=== PATIENT | female | born 1960 | race Caucasian/White ===

== ENCOUNTER 2024-10-09 00:03 | Inpatient (IN) | payer OTHER, SELFPAY ==
[2024-10-09] VITALS (11 sets, daily range): BP systolic 113–163; BP diastolic 63–82; PULSE 31–88; RESP 16–24; TEMP 36.6–39.1; O2SAT 92–99; BMI 21.6
--- NOTE | 2024-10-09 | ECG_ITS ---
Test Reason : WEAKNESS Blood Pressure : */* mmHG Vent. Rate : 84 BPM Atrial Rate : 84 BPM P-R Int : 134 ms QRS Dur : 104 ms QT Int : 366 ms P-R-T Axes : 47 -2 33 degrees QTcB Int : 432 ms Normal sinus rhythm Incomplete right bundle branch block Borderline ECG No previous ECGs available Referred By: Marianela Hand Electronically Signed By: Deion Allen
--- NOTE | ~2024-10-09 | XR_ITS ---
CLINICAL HISTORY: cough 1 view chest x-ray Comparison: None available Findings: Mild pulmonary opacities with interstitial predominance as can be seen with pulmonary edema and pneumonitis. Small left pleural effusion suggested with blunting of the costophrenic angle. No pneumothorax in this portable image. Mild cardiomegaly accentuated by AP technique. Degenerative changes include imaged shoulders and AC joints of the small chronic appearing fragment adjacent to right humerus and lucencies of the partially imaged right clavicle. Multiple additional lucencies concerning for osseous metastatic disease or myeloma type lesions. IMPRESSION: 1. Multiple osseous lesions with lytic appearance. Differential considerations include osseous metastatic disease (lytic) and findings of multiple myeloma. 2. Mild pulmonary opacities concerning for pneumonitis and/or pulmonary edema. This document has been electronically signed by: Ney Hood MD on 10/09/2024 00:59:27
--- NOTE | 2024-10-09 00:18 | ED.GENADULT ---
HPI - General Adult General Chief complaint: Nausea/Vomiting/Diarrhea Stated complaint: low HR, n/v/d High temp Time Seen by Provider: 10/09/24 00:18 Related Data Allergies Allergy/AdvReac Type Severity Reaction Status Date / Time No Known Allergies Allergy Verified 10/09/24 00:17 [facility] Social History Social History Smoked in Last 30 Days: No Use of substances other than those prescribed or required for medical reasons: No Advance Directives: No Advance Directives Information Provided: Yes Do you have a plan to hurt others: No Plan Patient : No Physical Exam ED Vital Signs: Vital Signs - 24 hr 10/09/24 00:20 Temperature 102.3 F H Pulse Rate 81 Respiratory Rate 24 H Blood Pressure 139/72 Pulse Oximetry 92 Oxygen Delivery Method Room Air BMI result Body Mass Index 21.6 Course Reevaluation(s) Reevaluation #1: At this time sepsis was recognized and this is sepsis focused exam Time: 00:20 Medications Administered Generic Name Dose Route Start Last Admin Trade Name Freq PRN Reason Stop Dose Admin Vancomycin HCl 1,500 mg/ 500 mls @ 333.333 mls/hr 10/09/24 00:29 10/09/24 01:04 Sodium Chloride IV 10/09/24 01:58 333.33 mls/hr ONCE ONE Administration Discontinued Medications Generic Name Dose Route Start Last Admin Trade Name Freq PRN Reason Stop Dose Admin Lactated Ringer's 1,929 mls @ 1,929 mls/hr 10/09/24 00:28 10/09/24 00:42 Lr 30 ml/kg infuse over 1 hr (1929 ml) 10/09/24 01:27 1,929 mls/hr IV Administration .Q1H ONE Piperacillin Sod/Tazobactam 50 mls @ 100 mls/hr 10/09/24 00:29 10/09/24 00:47 Sod 3.375 gm/ Sodium Chloride IV 10/09/24 00:58 100 mls/hr ONCE ONE Administration Medical Decision Making Medical Decision Making MDM Narrative: 64-year-old female with multiple myeloma on chemotherapy with recent pneumonia. She unfortunately is neutropenic fever mild tachypnea but she is not distressed. No obvious focal bacterial source on examination or ED testing. Bilateral infiltrates read as possible pneumonitis but resolving and/or acute on subacute bilateral pneumonia. Broad-spectrum antibiotics, sepsis activation, no hypotension or severe lactate elevation. Case discussed with hospitalist for admission. Differential Diagnosis , pneumonia, bacteremia, UTI, viral syndrome Consult Healthcare Provider Management of the patient was discussed with: Hospitalist Lab Data MDM Lab Attestation statement: I reviewed the patient's lab results. 10/09/24 00:16 10/09/24 00:16 Labs: Lab Results 10/09/24 10/09/24 Range/Units 00:16 00:33 WBC 0.8 L* (4.8-10.8) X10*3/uL RBC 2.94 L (4.20-5.50) X10*6/uL Hgb 8.8 L (12.0-16.0) g/dl Hct 25.6 L (37.0-47.0) % MCV 87.1 (80.0-98.0) fL MCH 29.9 (27.0-33.0) pg MCHC 34.4 (31.0-35.0) g/dl RDW 15.9 (11.0-16.0) % Plt Count 124 L (160-400) X10*3/uL MPV 10.7 (9.4-12.3) fL Immature Gran % (Auto) Cancelled Neut % (Auto) Cancelled Lymph % (Auto) Cancelled Frederick % (Auto) Cancelled Eos % (Auto) Cancelled Baso % (Auto) Cancelled Lymph # (Auto) Cancelled Frederick # (Auto) Cancelled Eos # (Auto) Cancelled Baso # (Auto) Cancelled Abs Immat Gran (auto) Cancelled Absolute Neuts (auto) Cancelled Absolute Nucleated RBC 0.020 H (0.0-0.012) X10*3/uL Nucleated RBC % (auto) 2.5 H (0.0-0.2) /100WBC Neutrophils % (Manual) 54 (45-73) % Band Neutrophils % 17 H (3-5) % Lymphocytes % (Manual) 27 (20-40) % Monocytes % (Manual) 1 L (2-11) % Eosinophils % (Manual) 1 (0-4) % Abs Neuts (Manual) 0.6 L (2.0-8.3) X10*3/uL Lymphocytes # (Manual) 0.2 L (1.2-4.9) X10*3/uL Toxic Granulation PRESENT Toxic Vacuolation PRESENT Dohle Bodies PRESENT Platelet Estimate SLIGHTLY DECREASED (NORMAL) Plt Morphology Comment NORMAL RBC Morphology NOTED Microcytosis 1+ (5-14) /OIF Spherocytes 1+ (0-2) /OIF Ovalocytes 1+ (5-14) /OIF Schistocytes 1+ (0-2) /OIF Hold Blue Top SEE NOTE Sodium 140 (135-145) mmol/L Potassium 3.8 (3.3-5.1) mmol/L Chloride 107 (96-108) mmol/L Carbon Dioxide 20 L (22-29) mmol/L Anion Gap 17 (12-20) BUN 16 (9-16) mg/dL Creatinine 1.06 (0.5-1.4) mg/dL Estim Creat Clear Calc 54.1 Estimated GFR 52 Random Glucose 98 (60-115) mg/dL Lactic Acid 1.8 (0.5-2.0) mmol/L Calcium 8.9 (8.4-10.2) mg/dL Magnesium 1.3 L* (1.6-2.6) mg/dL Total Bilirubin 0.3 (0.0-1.0) mg/dL AST 35 H (5-31) U/L ALT 24 (0-31) U/L Alkaline Phosphatase 95 (39-117) U/L C-Reactive Protein 1.23 H (< or = 0.50) mg/dL Total Protein 6.1 L (6.5-8.0) g/dL Albumin 3.6 (3.5-5.0) g/dL Procalcitonin 0.16 ng/mL TSH 1.81 (0.32-4.0) uIU/mL Hold Green Top See Note Chronic Conditions Patient?s care impacted by: Cancer Critical Care Time Critical Care Time Critical Care Time: Yes Total Critical Care Time: 50 Attestation: ED Critical Care: Authorized and Performed by: Rupesh Jara MD Total critical care time: Approximately 50 Due to a high probability of clinically significant, life threatening deterioration, the patient required my highest level of preparedness to intervene emergently and I personally spent this critical care time directly and personally managing the patient. This critical care time included obtaining a history; examining the patient; pulse oximetry; ordering and review of studies; arranging urgent treatment with development of a management plan; evaluation of patient's response to treatment; frequent reassessment; and, discussions with other providers. This critical care time was performed to assess and manage the high probability of imminent, life-threatening deterioration that could result in multi-organ failure. It was exclusive of separately billable procedures and treating other patients and teaching time. Discharge Plan Discharge Clinical Impression: Fever and neutropenia Patient Disposition: Admitted As Inpatient
--- NOTE | 2024-10-09 00:22 | MHC.EDTECH ---
at this time the pt was changed over into a hospital gown and placed on drapery and upholstery estimator, VS obtained and stable, blood work drawn and sent to lab
[2024-10-09 00:27] LABS: Hematocrit 25.6 % (37.0-47.0); Hemoglobin 8.8 g/dl (12.0-16.0); Mean Corpuscular HGB Conc 34.4 g/dl (31.0-35.0); Mean Corpuscular Hemoglobin 29.9 pg (27.0-33.0); Mean Corpuscular Volume 87.1 fL (80.0-98.0); Mean Platelet Volume 10.7 fL (9.4-12.3); NRBC Pct Auto 2.5 /100WBC (0.0-0.2); Platelet Count 124 X10*3/uL (160-400); Red Blood Count 2.94 X10*6/uL (4.20-5.50); Red Cell Distribution Width 15.9 % (11.0-16.0)
[2024-10-09 00:28] LABS: WBC ABN SCTR FOR CBC 1
[2024-10-09 00:30] LABS: White Blood Count 0.8 X10*3/uL (4.8-10.8)
[2024-10-09] MEDS: LACTATED RINGERS 1929 ML IV (00:42)
[2024-10-09] MEDS: Piperacillin Sodium/Tazobactam 3.375 GM in 0.9 % Sodium Chloride 50 ML IV (00:47)
[2024-10-09 00:50] LABS: Neutrophils Percent Manual 54 % (45-73)
[2024-10-09 00:52] LABS: Band Neutrophils Percent 17 % (3-5); Eosinophils Percent Manual 1 % (0-4); Lymphocytes Absolute Manual 0.2 X10*3/uL (1.2-4.9); Lymphocytes Percent Manual 27 % (20-40); Monocytes Percent Manual 1 % (2-11); Neutrophils Absolute Manual 0.6 X10*3/uL (2.0-8.3)
[2024-10-09 00:53] LABS: Microcytosis 1+ (5-14) /OIF; Ovalocytes 1+ (5-14) /OIF; Platelet Estimate SLIGHTLY DECREASED (NORMAL); Platelet Morphology Comment NORMAL; RBC Morphology NOTED; Schistocytes 1+ (0-2) /OIF
[2024-10-09 00:54] LABS: Dohle Bodies PRESENT; Spherocytes 1+ (0-2) /OIF; Toxic Granulation PRESENT; Toxic Vacuolation PRESENT
[2024-10-09 00:56] LABS: Alanine Aminotransferase 24 U/L (0-31); Albumin Level 3.6 g/dL (3.5-5.0); Alkaline Phosphatase 95 U/L (39-117); Anion Gap 17 (12-20); Aspartate Amino Transferase 35 U/L (5-31); Bilirubin Total 0.3 mg/dL (0.0-1.0); Blood Urea Nitrogen 16 mg/dL (9-16); C Reactive Protein 1.23 mg/dL (< or = 0.50); Calcium 8.9 mg/dL (8.4-10.2); Carbon Dioxide 20 mmol/L (22-29); Chloride 107 mmol/L (96-108); Creatinine Clr Calc Pharmacy 54.1; Estimated Glomerular Filt Rate 52; Glucose Random 98 mg/dL (60-115); Magnesium 1.3 mg/dL (1.6-2.6); Potassium 3.8 mmol/L (3.3-5.1); Sodium 140 mmol/L (135-145); Total Protein 6.1 g/dL (6.5-8.0)
[2024-10-09 00:59] LABS: Lactic Acid 1.8 mmol/L (0.5-2.0)
--- OUTSIDE RECORDS SUMMARY | 2024-10-09 01:01 | XMS_ITS | Encounter Summary ---
Author Organization [facility] Address [address] [place] [address] Care Team Providers Care Criminal Justice Social Worker Name Role Phone Hilda Wilkins MD Unavailable Unavailable Reyes Emanuel MD Primary Care Provider [phone] Encounter Details Date Type Department Care Team Description 12/07/2022 Orders Only Adult Medicine [address] [phone] Reyes Emanuel MD [address] [place] [address] [phone] Social History Tobacco Use Types Packs/Day Years Used Date Smoking Tobacco: Every Day Cigarettes 0.5 44 Passive Smoke Exposure: Past Smokeless Tobacco: Never Comments:started at 13 Alcohol Use Standard Drinks/Week Comments Yes 0 (1 standard drink = 0.6 oz pur e alcohol) OCCASIONALLY Sex Assigned at Date Recorded Not on file Job Start Date Occupation Industry Not on file Not on file Not on file COVID-19 Exposure Response Date Recorded In the last 10 days, have zehra u been in contact with someone who was confirmed or suspected to have Coronavirus/COVID-19? No / Unsure 11/12/2022 8:03 AM EDT documented as of this encounter Plan of Treatment Not on file documented as of this encounter Visit Diagnoses Not on filedocumented in this encounter Care Teams Criminal Justice Social Worker Relationship Specialty Start Date End Date Reyes Emanuel MD [address] [place] [address] [phone] PCP - General Internal Medicine 10/29/22 Hilda Wilkins MD Specialist Infectious Disease 02/01/22 documented as of this encounter
--- OUTSIDE RECORDS SUMMARY | 2024-10-09 01:01 | XMS_ITS | Clinical Summary ---
Author Organization 175 [facility] Address [address] [place] [address] Phone Care Team Providers Care Time Buyer Name Role Phone Reyes Emanuel MD Primary Care Provider Allergies No known active allergies Medications atorvastatin (LIPITOR) 20 mg tablet TAKE 1 TABLET BY MOUTH EVERY DAY 90 tablet 1 05/26/20 24 Active folic acid (FOLVITE) 1 mg tablet Take 1 tablet (1,000 mcg total) by mouth 1 (one) time each day. 90 tablet 2 06/09/20 24 Active albuterol HFA (PROAIR HFA ; PROVENTIL HFA ; VENTOLIN HFA) 90 mcg/actuation inhaler Inhale 2 puffs by mouth every 4 (four) hours if needed. 03/14/20 17 Active acetaminophen (TYLENOL) 325 mg tablet Take 2 tablets (650 mg total) by mouth every 8 (eight) hours if needed. 03/14/20 17 Active Combivent Respimat 20-100 mcg/actuation inhaler Inhale 1 puff by mouth 4 (four) times a day if needed for wheezing. 04/01/20 24 025 Active amLODIPine (NORVASC) 5 mg tablet TAKE 1 TABLET BY MOUTH EVERY DAY 90 tablet 2 07/13/19 25 Active LORazepam (ATIVAN) 0.5 mg tablet Take 1 tablet (0.5 mg total) by mouth 2 (two) times a day. Max Daily Amount: 1 mg 60 tablet 07/10/19 25 Active aspirin 81 mg EC tablet Take 1 tablet (81 mg total) by mouth 1 (one) time each day. Active traMADoL (ULTRAM) 50 mg tablet Take 1 tablet (50 mg total) by mouth 3 (three) times a day if needed for moderate pain. Max Daily Amount: 150 mg 90 tablet 09/15/19 25 Active cephalexin (KEFLEX) 500 mg capsule Take 1 capsule (500 mg total) by mouth 2 (two) times a day. Resume cephalexin after completing course of levofloxacin 180 capsule 1 09/20/19 25 Active multivitamin tablet Take 1 tablet by mouth 1 (one) time each day. 60 each 09/21/19 25 025 Active thiamine (VITAMIN B-1) 100 mg tablet Take 1 tablet (100 mg total) by mouth 1 (one) time each day. 60 tablet 09/21/19 25 025 Active Revlimid 25 mg capsuleIndica tions:Multipl e myeloma not having achieved remission (CMS/HCC V24, CMS/HCC V28) TAKE 1 CAPSULE BY MOUTH DAILY FOR 21 DAYS, THEN 7 DAYS OFF WITH WATER (DO NOT BREAK, CHEW, OR OPEN) 21 capsule 09/24/19 25 Active potassium chloride (KLOR-CON) 10 mEq CR tablet Take 1 tablet (10 mEq total) by mouth 1 (one) time each day. 30 each 1 09/29/19 25 025 Active citalopram (CeleXA) 10 mg tablet Take 2 tablets (20 mg total) by mouth 1 (one) time each day. 180 tablet 1 10/06/19 25 025 Active amitriptyline (ELAVIL) 10 mg tablet Take 1 tablet (10 mg total) by mouth at bedtime as needed. 07/03/19 23 025 Discontinued citalopram (CeleXA) 10 mg tablet Take 2 tablets (20 mg total) by mouth 1 (one) time each day. 08/12/19 24 025 Discontinued(R eorder) cephalexin (KEFLEX) 500 mg capsule Take 1 capsule (500 mg total) by mouth 2 (two) times a day. 180 capsule 1 06/18/19 25 025 Discontinued oxyCODONE (OXY-IR) 5 mg immediate release capsule Take 1 capsule (5 mg total) by mouth every 6 (six) hours if needed for severe pain. Max Daily Amount: 20 mg 20 capsule 07/27/19 25 025 Discontinued traMADoL (ULTRAM) 50 mg tablet Take 1 tablet (50 mg total) by mouth 3 (three) times a day if needed for moderate pain. Max Daily Amount: 150 mg 90 tablet 08/18/19 25 025 Discontinued(R eorder) dexAMETHasone (DECADRON) 4 mg tablet Take 10 tablets (40 mg total) by mouth every 7 (seven) days for 7 days. 40 each 08/22/19 25 025 Discontinued(S top Taking at Discharge) lenalidomide (REVLIMID) 25 mg capsuleIndica tions:Multipl e myeloma not having achieved remission (CMS/HCC V24, CMS/HCC V28) Take 1 capsule (25 mg total) by mouth 1 (one) time each day for 21 days Followed by 7 days off. Take whole with water. Do not break, chew, or open. 21 capsule 08/25/19 25 025 Discontinued hydrOXYzine pamoate (VISTARIL) 100 mg capsule Take 1 capsule (100 mg total) by mouth 3 (three) times a day if needed for itching for up to 10 days. 30 capsule 09/09/19 25 025 Discontinued dexAMETHasone (DECADRON) 4 mg tablet Take 40 mg (10 tabs) Weekly. 30 each 09/12/19 25 025 Discontinued(S top Taking at Discharge) lenalidomide (REVLIMID) 25 mg capsuleIndica tions:Multipl e myeloma not having achieved remission (CMS/HCC V24, CMS/HCC V28) Take 1 capsule (25 mg total) by mouth 1 (one) time each day for 21 days Followed by 7 days off. Take whole with water. Do not break, chew, or open. 21 capsule 09/20/19 25 025 Discontinued potassium chloride (KLOR-CON M10) 10 mEq CR tablet Take 1 tablet (10 mEq total) by mouth 2 (two) times a day for 5 days. Tablet may be swallowed whole (do not crush/chew/suck on) OR broken in half and each half swallowed separately OR dissolved (whole tablet) in ~4 ounces of water (allow ~2 minutes to dissolve, stir well and administer immediately). 10 each 09/20/19 25 025 levoFLOXacin (LEVAQUIN) 500 mg tablet Take 1 tablet (500 mg total) by mouth 1 (one) time each day for 5 days. 5 each 09/21/19 25 025 Active Problems Problem Noted Date Diagnosed Date Multiple myeloma not having achieved remission ([facility] V24, [facility] V28) 08/21/2024 Compression fracture of thor acic vertebra ([facility] V24, [facility] V28) 08/05/2024 Assessment & Plan (08/05/2024 11:58 AM EST): Ms. Montez is about days status post T10, L2, and L3 kyphoplasties. Since the surgery, she has noted significant improvement in her back pain. She still has some discomfort in the low back but says that overall things are much better than before the surgery. As part of the surgery, we obtained a bone biopsy at each level. This did reveal evidence of plasma cell neoplasm at both T10 and L3 revealing a diagnosis of plasma cell myeloma multiple myeloma. Ms. Montez has seen Dr. Wall, has had blood work and has plans for follow-up in August. She is seeing the student life coordinator tomorrow. We talked about the possibility of treatment of her lower lumbar compression fractures if the pain is intolerable which does not seem to be at this time. She will follow-up as needed. Other osteoporosis with curr ent pathological fracture, vertebra(e), sequela 07/21/2024 Compression fracture of L2 l umbar vertebra ([facility] V24, [facility] V28) 07/02/2024 Assessment & Plan (07/02/2024 3:57 PM EST): Ms. Montez describes mid to low back pain Since late January of 2024. She has known osteopenia. She is tender to palpation and percussion in the upper lumbar spine but is otherwise neurologically intact. Xrays and CT of the chest and abdomen have revealed what appear to be new compression fractures of T11, T12, L2 and L3 and a more chronic appearing compression frature of L1. A bone density study did reveal osteopenia. Ms. Montez would like to know if she is a candidate for a kyphoplasty in hopes that it would help her pain control. We will need to get an MRI to confirm the acuity of the fractures. She is scheduled to see an student life coordinator because of her osteopenia and fractures. I told her I would review her films with Dr. Cameron when they were available. Carpal tunnel syndrome of left wrist 06/05/2023 Carpal tunnel syndrome of right wrist 04/25/2023 B12 deficiency 06/01/2019 Fibromyalgia 08/16/2018 Neck pain 04/23/2018 Enlarged lymph node 08/09/2017 HTN (hypertension), benign 02/25/2017 External hemorrhoid 08/27/2016 Vitamin D deficiency 11/30/2015 Shoulder pain 12/14/2013 Cellulitis 11/25/2010 Overview (05/13/2024): Recurrent cellulitis of the left arm. Follows with Krystal Livingston, ID COPD (chronic obstructive pu lmonary disease) ([facility] V24, [facility] V28) 12/23/2009 Overview (05/13/2024): 12/05/09 PFTs - Mild obstructive ventilatory defect without reversibility to inhaled bronchodilator. 02 saturation, resting on room air, was normal at 98%. Diffuse cystic mastopathy 03/29/2007 Overview (05/13/2024): neg steriotactic bx 08/14, repeat mammogram 07/18 Lymphedema 12/21/2006 Overview (05/13/2024): post surgery for melanoma Malignant melanoma of skin o f upper limb, including shoulder ([facility] V24, [facility] V28) 12/21/2006 Overview (05/13/2024): left forearm 1988, 0/17 lymph nodes, lymphedema Depressive disorder 05/31/2006 Resolved Problems Problem Noted Date Diagnosed Date Resolved Date Fever and neutropenia ([facility] V24) 09/19/2024 09/19/2024 Severe sepsis with acute org an dysfunction (CMS/HCC V24, CMS/HCC V28) 09/15/2024 09/19/2024 Encounters Date Type Department Care Team Description 10/08/2024 11:30 AM EDT Hospital Encounter [address] [phone] Ilan Townsend MD Multiple myeloma not having achieved remission ([facility] V24, [facility] V28) (Primary Dx) 10/06/2024 11:30 AM EDT Hospital Encounter [address] [phone] Ilan Townsend MD Malignant melanoma of skin of upper extremity, including shoulder, unspecified laterality (CMS/HCC V24, [facility] V28) (Primary Dx); Multiple myeloma not having achieved remission ([facility]/HCC V24, [facility] V28) 10/05/2024 11:30 AM EDT Hospital Encounter [facility] [address] [place] [phone] Ilan Townsend MD Multiple myeloma not having achieved remission ([facility]/HCC V24, [facility] V28) (Primary Dx) 09/28/2024 11:19 AM EDT - 09/28/2024 11:59 PM EDT Hospital Encounter [address] [phone] Ilan Townsend MD Multiple myeloma not having achieved remission ([facility] V24, [facility] V28) (Primary Dx) Discharge Disposition: Home or Self Care 09/24/2024 11:29 AM EDT - 09/24/2024 11:59 PM EDT Hospital Encounter [address] [phone] Ilan Townsend MD Multiple myeloma not having achieved remission ([facility] V24, [facility] V28) (Primary Dx) Discharge Disposition: Home or Self Care 09/21/2024 12:30 PM EDT - 09/21/2024 11:59 PM EDT Hospital Encounter [facility] [address] [place] [phone] Ilan Townsend MD Multiple myeloma not having achieved remission ([facility] V24, [facility] V28) (Primary Dx) Discharge Disposition: Home or Self Care 09/21/2024 11:45 AM EDT Office Visit [facility] H[facility] Oncology [address] [place] [phone] Ilan Townsend MD Multiple myeloma not having achieved remission ([facility]/HCC V24, [facility] V28) (Primary Dx) 09/15/2024 3:32 PM EDT - 09/19/2024 12:47 PM EDT Hospital Encounter [facility] [address] [place] [phone] Nina Randall MD Zipagan, James T, MD Multiple myeloma not having achieved remission ([facility] V24, [facility] V28) Discharge Disposition: Home or Self Care 09/15/2024 10:39 AM EDT - 09/15/2024 11:59 PM EDT Hospital Encounter [facility] Xray [address] [place] [phone] Discharge Disposition: Home or Self Care 09/15/2024 9:30 AM EDT Office Visit [facility] [address] [place] [phone] Ani Henderson PA Multiple myeloma not having achieved remission ([facility] V24, [facility] V28) (Primary Dx); Anemia, unspecified type; Success light chain myeloma ([facility] V24, [facility] V28); Pathological fracture of vertebra with delayed healing, unspecified pathological cause, subsequent encounter; Fever, unspecified fever cause; Pneumonia due to infectious organism, unspecified laterality, unspecified part of lung; Hypokalemia 09/15/2024 8:30 AM EDT - 09/15/2024 11:59 PM EDT Hospital Encounter [facility] [address] [place] [phone] Ilan Townsend MD Multiple myeloma not having achieved remission ([facility] V24, [facility] V28) (Primary Dx); Malignant melanoma of skin of upper extremity, including shoulder, unspecified laterality ([facility]/HCC V24, CMS/HCC V28) Discharge Disposition: Home or Self Care 09/14/2024 11:21 AM EDT - 09/14/2024 11:59 PM EDT Hospital Encounter [facility] [address] [place] [phone] Ilan Townsend MD Multiple myeloma not having achieved remission ([facility] V24, [facility] V28) (Primary Dx) Discharge Disposition: Home or Self Care 09/11/2024 11:15 AM EDT Office Visit [facility] [address] [place] [phone] Ilan Townsend MD Multiple myeloma not having achieved remission ([facility] V24, [facility] V28) (Primary Dx); Anemia, unspecified type 09/11/2024 8:55 AM EDT - 09/11/2024 11:59 PM EDT Hospital Encounter [facility] [address] [place] [phone] Ilan Townsend MD Multiple myeloma not having achieved remission ([facility] V24, [facility] V28) (Primary Dx) Discharge Disposition: Home or Self Care 09/11/[address] [facility] [address] [place] [phone] Hever Aranda LMSW 08/26/2024 1:20 PM EDT - 08/26/2024 11:59 PM EDT Hospital Encounter [facility] [address] [place] [phone] Ilan Townsend MD Multiple myeloma not having achieved remission ([facility] V24, [facility] V28) (Primary Dx) Discharge Disposition: Home or Self Care 08/25/[address] [facility] [address] [place] [address], [place] [phone] Stephanie Rowland RN 08/21/2024 11:45 AM EDT Office Visit [facility] [address] [place] [phone] Ilan Townsend MD Multiple myeloma, remission status unspecified ([facility] V24, [facility] V28) (Primary Dx); Success light chain myeloma ([facility] V24, [facility] V28) 08/21/[address] [facility] [address] [place] [phone] Ariadna German, BERNA Revlimid [employer] 08/17/2024 6:56 AM EDT - 08/17/2024 11:59 PM EDT Hospital Encounter [facility] Interventional Radiology [address] [place] [phone] Other osteoporosis with current pathological fracture, vertebra(e), sequela; Lytic bone lesions on xray Discharge Disposition: Home or Self Care 08/07/2024 12:00 PM EST Office Visit Adult Medicine [address] [phone] Reyes Emanuel MD Pathological fracture of vertebra with delayed healing, unspecified pathological cause, subsequent encounter (Primary Dx); Anemia, unspecified type; Blocked ear, right; Hypercalcemia; Multiple fracture; Lytic lesion of bone on x-ray 08/07/[address] [phone] Luli Batista MA 08/06/2024 8:30 AM EST Telemedicine [address] [phone] Teagan Garza PA Other osteoporosis with current pathological fracture, vertebra(e), sequela (Primary Dx); Lytic bone lesions on xray; Light chain disease ([facility] V24) 08/05/2024 11:00 AM EST Office Visit Neurosurgery [facility] [address] [phone] Minesh Espinal PA Compression fracture of thoracic vertebra, unspecified thoracic vertebral level, initial encounter ([facility] V24, [facility] V28) (Primary Dx) 08/05/[address] [facility] [address] [place] [phone] Ilan Townsend MD 08/04/[address] [phone] Luli Batista MA Results 07/31/2024 11:30 AM EST Office Visit [facility] [address] [place] [phone] Ilan Townsend MD Multiple fracture; Pathological fracture of vertebra with delayed healing, unspecified pathological cause, subsequent encounter; Hypercalcemia; Lytic lesion of bone on x-ray 07/30/2024 3:08 PM EST - 07/30/2024 11:59 PM EST Hospital Encounter XRAY - [address] [phone] Dyspnea, unspecified type; Multiple fracture Discharge Disposition: Home or Self Care 07/30/2024 2:00 PM EST Office Visit Adult Medicine [address] [phone] Reyes Emanuel MD Lytic lesion of bone on x-ray (Primary Dx); Dyspnea, unspecified type; Multiple fracture; Pathological fracture of vertebra with delayed healing, unspecified pathological cause, subsequent encounter; Hypercalcemia 07/29/2024 1:45 PM EST - 07/29/2024 11:59 PM EST Hospital Encounter XRAY [address] [phone] Shoulder blade pain Discharge Disposition: Home or Self Care 07/27/2024 11:52 AM EST Anesthesia Event [facility] [address] [place] [phone] Piotr Shahid DO 07/27/2024 11:30 AM EST - 07/27/2024 1:[address] [facility] OR [address] [place] [phone] Teagan Cameron MD T10, L2 & L3 kyphoplasties [45573 (CPT??) +1 more] 07/27/2024 9:43 AM EST - 07/27/2024 3:42 PM EST Hospital Encounter [facility] OR [address] [place] [phone] Teagan Cameron MD Other osteoporosis with current pathological fracture, vertebra(e), sequela Discharge Disposition: Home or Self Care 07/27/2024 7:20 AM EST - 07/27/2024 11:59 PM EST Hospital Encounter [facility] [address] [place] [phone] Pain Discharge Disposition: Home or Self Care 07/16/2024 Telephone [facility] [phone] [place] [phone] Luli Batista MA from Last 3 Months Immunizations Name Administration Dates Next Due Influenza Quadravalent, 0.5m l (Fluzone High-dose) 65yo and older 04/19/2016 Influenza Quadravalent, MDCK , 0.5ml, preservative free (Flucelvax) 6mo and older 03/17/2018 Influenza trivalent, with pr eservative (Fluzone; Afluria) 6mo and older 03/26/2023,04/26/2020,02/08/2018,04/24 Pneumococcal polysaccharide 23 valent (Pneumovax 23) 2yo and older 05/16/2021 Tdap Tetanus diptheria acell ular pertussis (Boostrix; Adacel) 7yo and older 01/09/2010 Surgical History Surgery Date Site/Laterality Comments OTHER SURGICAL HISTORY PROCEDURE: HISTORICAL MELANOMA; COMMENT: left arm with lymphnode dissection neg for mets 1987, lymphedema for 11 years after trauma TONSILLECTOMY PROCEDURE: HISTORICAL TONSILLECTOMY COLONOSCOPY 08/22/1998 PROCEDURE: HISTORICAL COLONOSCOPY; COMMENT: in patient's 30s for rectal bleeding - no abnormal findings COLONOSCOPY 06/06/2010 PROCEDURE: HISTORICAL COLONOSCOPY; COMMENT: No polyps COLONOSCOPY 06/14/2015 PROCEDURE: HISTORICAL COLONOSCOPY; COMMENT: Negative examination OTHER SURGICAL HISTORY 11/2016 PROCEDURE: SD HEMORRHOID NTRNL & XTRNL 1 COLUMN W/FISSURECTO; COMMENT: fistulectomy, debridement of anal fissure with anoplasty and hemorrhoidectomy TOTAL KNEE ARTHROPLASTY 03/12/2017 Left PROCEDURE: SD ARTHRP KNE CONDYLE&PLATU MEDIAL&LAT COMPARTMENTS OTHER SURGICAL HISTORY 2019 Left PROCEDURE: SD ARTHRP ACETBLR/PROX FEM PROSTC AGRFT/ALGRFT BREAST BIOPSY Right PROCEDURE: BX BREAST; PERC NEEDLE CORE W/IMAG GUID; COMMENT: rt neg BREAST BIOPSY 03/01/2022 Left PROCEDURE: BX BREAST; PERC NEEDLE CORE W/IMAG GUID CARPAL TUNNEL RELEASE 04/2023 PROCEDURE: HISTORICAL CARPAL TUNNEL REL KNEE ARTHROPLASTY HIP ARTHROPLASTY Medical History Medical History Date Comments Cellulitis and abscess of ot her specified site DX:Cellulitis and abscess of other specified site; COMMENT: L arm Other lymphedema 12/21/2006 DX:Other lymphe pricila; COMMENT: post surgery for melanoma Malignant melanoma of skin o f upper limb, including shoulder ([facility] V24, [facility] V28) 12/21/2006 DX:Malignant melanoma of ski n of upper limb, including shoulder ([facility]); COMMENT: left forearm 1988, 017 lymph nodes, lymphedema Chronic airway obstruction, not elsewhere classified 12/21/2006 DX:Chronic airway obstructio n, not elsewhere classified Depressive disorder, not els ewhere classified 02/05/2006 DX:Depressive disorder, not elsewhere classified Thoracic or lumbosacral neur itis or radiculitis, unspecified 03/11/2008 DX:Thoracic or lumbosacral n euritis or radiculitis, unspecified Displacement of lumbar inter vertebral disc without myelopathy 03/11/2008 DX:Displacement of lumbar intervertebral disc without myelopathy Family history of colonic polyps 06/06/2010 DX:Family history of colonic polyps COPD (chronic obstructive pu lmonary disease) ([facility] V24, [facility] V28) 12/23/2009 DX:COPD (chronic o bstructive pulmonary disease) ([facility]) History of other specified c onditions presenting hazards to health DX:History of other speci fied conditions presenting hazards to health; COMMENT: melanoma lt forearm 1988 Diffuse cystic mastopathy 03/29/2007 DX:Dif fuse cystic mastopathy; COMMENT: neg steriotactic bx 2006 Neck pain 04/23/2018 DX:Neck pain Anemia DX:Anemia Fibromyalgia DX:Fibromyalgia Arthritis DX:Arthritis Nontoxic single thyroid nodule D X:Nontoxic single thyroid nodule; COMMENT: Biopsy 2022 Hemorrhoids DX:Hemorrhoids HTN (hypertension), benign 02/25/2017 Family History Medical History Relation Name Comments Ankylosing spondylitis Mother Arthritis Mother Colon cancer Mother Hypertension Mother Kidney cancer Mother Breast cancer Other mat aunt Other: ckd Sister 1 Colon polyps Sister 2 dx age 54 with 3 polyps Colon cancer Uncle maternal; age 5 2 Ovarian cancer Neg Hx Uterine cancer Neg Hx Relation Name Status Comments Brother Alive 3 brothers,, 1 with colon polyps, cerebral palsy Daughter Alive 1 daughter age 15, healthy Father (Age 63) emphysema, alcoholic Maternal Grandfather Maternal Grandmother Mother pernicious anem ia, RA, HTN, DM, Other mat aunt Paternal Grandfather Paternal Grandmother Sister 1 Alive Sister 2 Son Alive 1 son, age 27, healthy Uncle Social History Tobacco Use Types Packs/Day Years Used Date Smoking Tobacco: Every Day Cigarettes Smokeless Tobacco: Never Tobacco Cessation:Ready to Q uit: Not Asked; Counseling Given: Not Answered Comments:2 cigs a day Alcohol Use Standard Drinks/Week Comments Not Currently 0 (1 standard drink = 0.6 oz pur e alcohol) Housing Instability Answer Date Recorde d Are you worried that in the next 2 months you may not have stable housing? No 09/15/2024 Food Access & Nutrition Answer Date Rec orded Do you have access to a vari ety of food including fruits and vegetables? Yes 09/15/2024 Access to Healthcare Answer Date Record ed Within the last 3 months, ez mahan many times did you visit the emergency department for your medical care? 0 09/15/2024 Health Literacy Answer Date Recorded How often do you need to hav e someone help you when you read instructions, pamphlets, or other written material from your doctor or pharmacy? Never 09/15/2024 Caregiver: How often do you need to have someone help you when you read instructions, pamphlets, or other written material from your doctor or pharmacy? Not on file 09/15/2024 Financial Risk Answer Date Recorded How hard is it for you to pa y for the very basics like food, housing, medical care, and air conditioning / heating? Not very hard 09/15/2024 Transportation Answer Date Recorded Has the lack of transportati on kept you from meetings, work, or from getting things needed for daily living? No Has the lack of transportati on kept you from medical appointments or from getting medications? No 09/15/2024 Social Isolation Answer Date Recorded How often do you feel lonely or isolated from th ose around you? Never 09/15/2024 Food Risk Answer Date Recorded Within the past 12 months we worried whether our food would run out before we got money to buy more. Never true 09/15/2024 Within the past 12 months th e food we bought just didn't last and we didn't have money to get more. Never true 09/15/2024 Dependent Care Answer Date Recorded Do you need help finding or paying for care for your loved ones. For example, child and family counselor or elderly care for an older adult? No 09/15/2024 Education Answer Date Recorded Do you think completing more education or training, like finishing a GED, going to college, or learning a trade, would be helpful for you? No 09/15/2024 Employment and Income Answer Date Recor ded During the last four weeks, have you been actively looking for work? No 09/15/2024 Living Situation Answer Date Recorded What is your living situation? 0 09/15/2024 Interpersonal Safety Answer Date Record ed Physical Abuse 09/15/2024 Verbal Abuse 09/15/2024 Comments No Sex and Gender Information Value Date Recorded Sex Assigned at Female 07/27/2024 9:41 AM EST Legal Sex Female 11:28 AM EST Gender Identity Female 07/27/2024 9:41 AM EST Sexual Orientation Straight 07/27/2024 9: 41 AM EST Obstetrics History Last Filed Vital Signs Vital Sign Reading Time Taken Comments Blood Pressure 137/85 10/08/2024 11:51 AM EDT Pulse 59 10/08/2024 11:51 AM EDT Temperature 36.6 ??C (97.8 ??F) 10/08/2024 11:51 AM E DT Respiratory Rate 18 10/06/2024 2:30 PM EDT Oxygen Saturation 100% 10/08/2024 11:51 AM EDT Inhaled Oxygen Concentration - - Weight 67.3 kg (148 lb 6.4 oz) 10/08/2024 11:51 AM EDT Height 175.3 cm (5' 9 ) 09/18/2024 2:12 PM EDT Body Mass Index 21.91 09/18/2024 2:12 PM EDT Plan of Treatment Upcoming Encounters Date Type Department Care Team (Late st Contact Info) Description 10/12/2024 11:[address] [facility] [address] [phone] 10/15/2024 11:[address] [facility] [address] [place] [phone] 10/19/2024 11:30 AM EDT Appointment [address] [phone] 10/28/2024 11:30 AM EDT Office Visit [facility] Hematology Oncology [address] [place] [phone] Ilan Townsend MD [address] [place] [phone] 03/13/2025 11:00 AM EDT Appointment Radiology Department [address] [phone] Health Maintenance Due Date Last Done Comments Zoster Vaccines (1 of 2) 1979 Cholesterol Screening (Lipid Panel) 07/16/2019 Depression Screening 07/16/2019 HIV Screening 07/16/2019 Lung Cancer Screening (Low Dose CT) 07/16/2019 DTaP,Tdap,and Td Vaccines (2 - Td or Tdap) 01/10/2020 01/09/2010 RSV Immunization Adult Patients (1 - Risk 60-74 years 1-dose series) 2020 COVID-19 Vaccine (3 - Moderna risk series) 08/18/2020 07/21/2020, 06/23/2020 Pneumococcal Vaccine: 50+ Years (2 of 2 - PCV) 05/16/2022 05/16/2021 Pneumococcal Vaccine: Pediatrics (0 to 5 Years) and At-Risk Patients (6 to 64 Years) (2 of 2 - PCV) 05/16/2022 05/16/2021 Influenza Vaccine (Season Ended) 2025 03/26/2023, 04/26/2020, 03/17/2018, Additional history exists Social Influencers of Health Screening 09/15/2025 09/15/2024 Hypertension/CHF/CAD Annual BMP Blood Test 10/05/2025 10/05/2024, 09/25/2024, 09/24/2024, Additional history exists Breast Cancer Screening 03/07/2026 03/07/20 24, 03/07/2024, 02/26/2023, Additional history exists Cervical Cancer Screening: HPV 05/16/2026 05/16/2021 Colorectal Cancer Screening: Colonoscopy 12/17/2028 12/18/2023 Osteoporosis Screening (Bone Density Screening) 04/03/2034 04/03/2024, 04/03/2024 Hepatitis C Screening Completed 07/22/2007 HIB Vaccines Aged Out No longer eligi ble based on patient's age to complete this topic HPV Vaccines Aged Out No longer eligi ble based on patient's age to complete this topic Hepatitis A Vaccines Aged Out No long er eligible based on patient's age to complete this topic Hepatitis B Vaccines Aged Out No long er eligible based on patient's age to complete this topic IPV Vaccines Aged Out No longer eligi ble based on patient's age to complete this topic MMR Vaccines Aged Out No longer eligi ble based on patient's age to complete this topic Meningococcal ACWY Vaccine Aged Out N o longer eligible based on patient's age to complete this topic Meningococcal B Vaccine Aged Out No l onger eligible based on patient's age to complete this topic RSV Immunization Patients Under 20 months Aged Out No longer eligible based on patient's age to complete this topic Varicella Vaccines Aged Out No longer eligible based on patient's age to complete this topic Medical Devices Implanted Type Area Conveyor Maintenance Mechanic Device Identifier Shelf Expiration Date Model / Serial / Lot Kyphx Hv-R Bone Cement - Sna - [id number] Implanted:Qty: 2 on 07/27/2024 by Teagan Cameron MD at [facility] Bone Cement N/A: Back [employer] KYPHON 11/07/2026 C01A / NA / [id number] Kyph[employer] Hv-R Bone Cement Kyphon Mixer Pack - Sna - [id number] Implanted:Qty: 2 on 07/27/2024 by Teagan Cameron MD at [facility] Bone Cement N/A: Back [employer] KYPHON 11/07/2026 C01B / NA / [id number] Kyphx Hv-R Bone Cement - Sna - [id number] Implanted:Qty: 1 on 07/27/2024 by Teagan Cameron MD at [facility] Bone Cement N/A: Back [employer] KYPHON 08/07/2026 C01A / NA / [id number] Kyphx Hv-R Bone Cement Kyphon Mixer Pack - Sna - [id number] Implanted:Qty: 1 on 07/27/2024 by Teagan Cameron MD at [facility] Bone Cement N/A: Back [employer] KYPHON 08/07/2026 C01B / NA / [id number] Joints Hip Joints Hip Bilatera l: Hip Joints Knee Joints Knee Left: Knee Procedures Procedure Name Priority Date/Time Associated Diagnosis Comments TRANSFUSE RED BLOOD CELLS Routine 10/06/2024 12:14 PM EDT Malignant melanoma of skin of upper extremity, including shoulder, unspecified laterality (CMS/HCC V24, CMS/HCC V28) Multiple myeloma not having achieved remission (CMS/HCC V24, CMS/HCC V28) PREPARE RBC STAT 10/06/2024 11:43 AM EDT Malignant melanoma of skin of upper extremity, including shoulder, unspecified laterality (CMS/HCC V24, CMS/HCC V28) Multiple myeloma not having achieved remission (CMS/HCC V24, CMS/HCC V28) ANTIBODY IDENTIFICATION Routine 10/05/2024 1:15 PM EDT Multiple myeloma not having achieved remission (CMS/HCC V24, CMS/HCC V28) TYPE AND SCREEN Routine 10/05/2024 1:15 PM EDT Multiple myeloma not having achieved remission (CMS/HCC V24, CMS/HCC V28) CBC WITH AUTO DIFFERENTIAL Routine 10/05/2024 11:55 AM EDT Multiple myeloma not having achieved remission (CMS/HCC V24, CMS/HCC V28) COMPREHENSIVE METABOLIC PANEL Routine 10/05/2024 11:55 AM EDT Multiple myeloma not having achieved remission (CMS/HCC V24, CMS/HCC V28) CBC AND DIFFERENTIAL Routine 10/05/2024 11:55 AM EDT Multiple myeloma not having achieved remission (CMS/HCC V24, CMS/HCC V28) COMPLETE BLOOD COUNT Routine 10/02/2024 3:57 PM EDT Malignant melanoma of skin of upper extremity, including shoulder, unspecified laterality (CMS/HCC V24, CMS/HCC V28) Multiple myeloma not having achieved remission (CMS/HCC V24, CMS/HCC V28) MANUAL DIFFERENTIAL - SYSMEX WAM Routine 09/25/2024 3:51 PM EDT Multiple myeloma not having achieved remission (CMS/HCC V24, CMS/HCC V28) CBC WITH AUTO DIFFERENTIAL Routine 09/25/2024 3:51 PM EDT Multiple myeloma not having achieved remission (CMS/HCC V24, CMS/HCC V28) CBC AND DIFFERENTIAL Routine 09/25/2024 3:51 PM EDT Multiple myeloma not having achieved remission (CMS/HCC V24, CMS/HCC V28) COMPREHENSIVE METABOLIC PANEL Routine 09/25/2024 3:51 PM EDT Multiple myeloma not having achieved remission (CMS/HCC V24, CMS/HCC V28) COMPREHENSIVE METABOLIC PANEL STAT 09/24/2024 12:19 PM EDT Multiple myeloma not having achieved remission (CMS/HCC V24, CMS/HCC V28) MAGNESIUM Add-On 09/19/2024 8:59 AM EDT VANCOMYCIN, TROUGH Timed 09/19/2024 8:59 AM EDT MANUAL DIFFERENTIAL - SYSMEX WAM Routine 09/19/2024 6:01 AM EDT CBC WITH AUTO DIFFERENTIAL Routine 09/19/2024 6:01 AM EDT BASIC METABOLIC PANEL Routine 09/19/2024 6:01 AM EDT CBC AND DIFFERENTIAL Routine 09/19/2024 6:01 AM EDT COMPLETE BLOOD COUNT Timed 09/19/2024 6:01 AM EDT BASIC METABOLIC PANEL Routine 09/18/2024 7:12 PM EDT CBC WITH AUTO DIFFERENTIAL Routine 09/18/2024 9:33 AM EDT MAGNESIUM Routine 09/18/2024 9:33 AM EDT BASIC METABOLIC PANEL Routine 09/18/2024 9:33 AM EDT CBC AND DIFFERENTIAL Routine 09/18/2024 9:33 AM EDT BASIC METABOLIC PANEL Routine 09/17/2024 2:41 PM EDT VANCOMYCIN, TROUGH Timed 09/17/2024 9:20 AM EDT MANUAL DIFFERENTIAL - SYSMEX WAM Routine 09/17/2024 6:17 AM EDT MAGNESIUM Add-On 09/17/2024 6:17 AM EDT PHOSPHORUS Add-On 09/17/2024 6:17 AM EDT CBC WITH AUTO DIFFERENTIAL Routine 09/17/2024 6:17 AM EDT BASIC METABOLIC PANEL Routine 09/17/2024 6:17 AM EDT CBC AND DIFFERENTIAL Routine 09/17/2024 6:[address] HEAD WO CONTRAST STAT 09/16/2024 4:15 PM EDT COMPLETE BLOOD COUNT Timed 09/16/2024 6:29 AM EDT BASIC METABOLIC PANEL Routine 09/16/2024 6:29 AM EDT TRANSFUSE RED BLOOD CELLS Routine 09/15/2024 9:24 PM EDT BASIC METABOLIC PANEL STAT 09/15/2024 4:23 PM EDT CBC WITH AUTO DIFFERENTIAL STAT 09/15/2024 4:23 PM EDT CBC AND DIFFERENTIAL STAT 09/15/2024 4:23 PM EDT VELAZQUEZ URINE CULTURE TUBE Routine 09/15/2024 1:02 PM EDT Malignant melanoma of skin of upper extremity, including shoulder, unspecified laterality (CMS/HCC V24, CMS/HCC V28) URINALYSIS WITH REFLEX MICROSCOPIC AND CULTURE Routine 09/15/2024 1:02 PM EDT Malignant melanoma of skin of upper extremity, including shoulder, unspecified laterality (CMS/HCC V24, CMS/HCC V28) URINALYSIS WITH REFLEX MICROSCOPIC AND CULTURE Routine 09/15/2024 1:02 PM EDT Malignant melanoma of skin of upper extremity, including shoulder, unspecified laterality (CMS/HCC V24, CMS/HCC V28) LACTATE STAT 09/15/2024 11:08 AM EDT Multiple myeloma not having achieved remission (CMS/HCC V24, CMS/HCC V28) CULTURE BLOOD STAT 09/15/2024 11:08 AM EDT Multiple myeloma not having achieved remission (CMS/HCC V24, CMS/HCC V28) CULTURE BLOOD STAT 09/15/2024 11:08 AM EDT Multiple myeloma not having achieved remission (CMS/HCC V24, CMS/HCC V28) PREPARE RBC STAT 09/15/2024 11:07 AM EDT Multiple myeloma not having achieved remission (CMS/HCC V24, CMS/HCC V28) Malignant melanoma of skin of upper extremity, including shoulder, unspecified laterality (CMS/HCC V24, CMS/HCC V28) XR CHEST 1 VIEW STAT 09/15/2024 10:55 AM EDT Multiple myeloma not having achieved remission (CMS/HCC V24, CMS/HCC V28) ECG 12-LEAD STAT 09/15/2024 10:44 AM EDT RESPIRATORY VIRUS PANEL MOLECULAR STUDY STAT 09/15/2024 10:35 AM EDT HAPTOGLOBIN Add-On 09/15/2024 9:03 AM EDT LACTATE DEHYDROGENASE Add-On 09/15/2024 9:03 AM EDT PROCALCITONIN Add-On 09/15/2024 9:03 AM EDT PATHOLOGIST REVIEW BLOOD SMEAR Routine 09/15/2024 9:03 AM EDT Multiple myeloma not having achieved remission (CMS/HCC V24, CMS/HCC V28) CBC WITH AUTO DIFFERENTIAL STAT 09/15/2024 9:03 AM EDT Multiple myeloma not having achieved remission (CMS/HCC V24, CMS/HCC V28) COMPREHENSIVE METABOLIC PANEL STAT 09/15/2024 9:03 AM EDT Multiple myeloma not having achieved remission (CMS/HCC V24, CMS/HCC V28) CBC AND DIFFERENTIAL STAT 09/15/2024 9:03 AM EDT Multiple myeloma not having achieved remission (CMS/HCC V24, CMS/HCC V28) TYPE AND SCREEN Routine 09/14/2024 11:46 AM EDT Multiple myeloma not having achieved remission (CMS/HCC V24, CMS/HCC V28) CBC WITH AUTO DIFFERENTIAL Routine 09/11/2024 9:47 AM EDT Multiple myeloma not having achieved remission (CMS/HCC V24, CMS/HCC V28) TYPE AND SCREEN Routine 09/11/2024 9:47 AM EDT Multiple myeloma not having achieved remission (CMS/HCC V24, CMS/HCC V28) COMPREHENSIVE METABOLIC PANEL Routine 09/11/2024 9:47 AM EDT Multiple myeloma not having achieved remission (CMS/HCC V24, CMS/HCC V28) CBC AND DIFFERENTIAL Routine 09/11/2024 9:47 AM EDT Multiple myeloma not having achieved remission (CMS/HCC V24, CMS/HCC V28) CALCIUM Routine 09/09/2024 1:38 PM EDT Multiple myeloma not having achieved remission (CMS/HCC V24, CMS/HCC V28) CREATININE, SERUM Routine 09/09/2024 1:38 PM EDT Multiple myeloma not having achieved remission (CMS/HCC V24, CMS/HCC V28) PHOSPHORUS Routine 09/09/2024 1:38 PM EDT Multiple myeloma not having achieved remission (CMS/HCC V24, CMS/HCC V28) MAGNESIUM Routine 09/09/2024 1:38 PM EDT Multiple myeloma not having achieved remission (CMS/HCC V24, CMS/HCC V28) ALBUMIN Routine 09/09/2024 1:38 PM EDT Multiple myeloma not having achieved remission (CMS/HCC V24, CMS/HCC V28) CBC WITH AUTO DIFFERENTIAL Routine 08/21/2024 1:08 PM EDT Multiple myeloma, remission status unspecified (CMS/HCC V24, CMS/HCC V28) Success light chain myeloma (CMS/HCC V24, CMS/HCC V28) COMPREHENSIVE METABOLIC PANEL Routine 08/21/2024 1:08 PM EDT Multiple myeloma, remission status unspecified ([facility]/HCC V24, [facility] V28) Success light chain myeloma (CMS/HCC V24, [facility] V28) CBC AND DIFFERENTIAL Routine 08/21/2024 1:08 PM EDT Multiple myeloma, remission status unspecified ([facility]/HCC V24, [facility] V28) Success light chain myeloma ([facility] V24, [facility] V28) IR BX AND ASP BONE MARROW STAT 08/17/2024 12:25 PM EDT Other osteoporosis with current pathological fracture, vertebra(e), sequela Lytic bone lesions on xray BONE MARROW EXAM Routine 08/17/2024 8:59 AM EDT Other osteoporosis with current pathological fracture, vertebra(e), sequela Lytic bone lesions on xray CYTOGENETICS MISCELLANEOUS Routine 08/17/2024 8:59 AM EDT Other osteoporosis with current pathological fracture, vertebra(e), sequela Lytic bone lesions on xray FLOW CYTOMETRY Routine 08/17/2024 8:59 AM EDT Other osteoporosis with current pathological fracture, vertebra(e), sequela Lytic bone lesions on xray PROTHROMBIN TIME WITH INR Routine 08/07/2024 12:35 PM EST Preop examination Anemia, unspecified type KAPPA-LAMBDA QUANTITATIVE FREE LIGHT CHAINS Routine 08/03/2024 12:37 PM EST Osteoporosis, unspecified osteoporosis type, unspecified pathological fracture presence Hypercalcemia Compression fracture of L2 vertebra with routine healing, subsequent encounter Vitamin D deficiency B12 deficiency Enlarged lymph node Diffuse cystic mastopathy COPD (chronic obstructive pulmonary disease) ([facility] V24, [facility] V28) HTN (hypertension), benign Fibromyalgia Malignant melanoma of skin of upper limb, including shoulder ([facility] V24, [facility] V28) MAGNESIUM Routine 08/03/2024 12:37 PM EST Osteoporosis, unspecified osteoporosis type, unspecified pathological fracture presence Hypercalcemia Compression fracture of L2 vertebra with routine healing, subsequent encounter Vitamin D deficiency B12 deficiency Enlarged lymph node Diffuse cystic mastopathy COPD (chronic obstructive pulmonary disease) (CMS/HCC V24, CMS/HCC V28) HTN (hypertension), benign Fibromyalgia Malignant melanoma of skin of upper limb, including shoulder (CMS/HCC V24, CMS/HCC V28) PHOSPHORUS Routine 08/03/2024 12:37 PM EST Osteoporosis, unspecified osteoporosis type, unspecified pathological fracture presence Hypercalcemia Compression fracture of L2 vertebra with routine healing, subsequent encounter Vitamin D deficiency B12 deficiency Enlarged lymph node Diffuse cystic mastopathy COPD (chronic obstructive pulmonary disease) (CMS/HCC V24, CMS/HCC V28) HTN (hypertension), benign Fibromyalgia Malignant melanoma of skin of upper limb, including shoulder (CMS/HCC V24, CMS/HCC V28) VITAMIN A Routine 08/03/2024 12:37 PM EST Osteoporosis, unspecified osteoporosis type, unspecified pathological fracture presence Hypercalcemia Compression fracture of L2 vertebra with routine healing, subsequent encounter Vitamin D deficiency B12 deficiency Enlarged lymph node Diffuse cystic mastopathy COPD (chronic obstructive pulmonary disease) (CMS/HCC V24, CMS/HCC V28) HTN (hypertension), benign Fibromyalgia Malignant melanoma of skin of upper limb, including shoulder (CMS/HCC V24, CMS/HCC V28) VITAMIN D 25 HYDROXY Routine 08/03/2024 12:37 PM EST Osteoporosis, unspecified osteoporosis type, unspecified pathological fracture presence Hypercalcemia Compression fracture of L2 vertebra with routine healing, subsequent encounter Vitamin D deficiency B12 deficiency Enlarged lymph node Diffuse cystic mastopathy COPD (chronic obstructive pulmonary disease) (CMS/HCC V24, CMS/HCC V28) HTN (hypertension), benign Fibromyalgia Malignant melanoma of skin of upper limb, including shoulder (CMS/HCC V24, CMS/HCC V28) BASIC METABOLIC PANEL Routine 08/03/2024 12:37 PM EST Osteoporosis, unspecified osteoporosis type, unspecified pathological fracture presence Hypercalcemia Compression fracture of L2 vertebra with routine healing, subsequent encounter Vitamin D deficiency B12 deficiency Enlarged lymph node Diffuse cystic mastopathy COPD (chronic obstructive pulmonary disease) (CMS/HCC V24, CMS/HCC V28) HTN (hypertension), benign Fibromyalgia Malignant melanoma of skin of upper limb, including shoulder ([facility] V24, [facility]/HCC V28) PARATHYROID HORMONE INTACT Routine 08/03/2024 12:37 PM EST Osteoporosis, unspecified osteoporosis type, unspecified pathological fracture presence Hypercalcemia Compression fracture of L2 vertebra with routine healing, subsequent encounter Vitamin D deficiency B12 deficiency Enlarged lymph node Diffuse cystic mastopathy COPD (chronic obstructive pulmonary disease) ([facility] V24, [facility] V28) HTN (hypertension), benign Fibromyalgia Malignant melanoma of skin of upper limb, including shoulder ([facility] V24, [facility] V28) SD PROTEIN ELECTROPHORETIC FRACTIONATION & QUANTITATION SERUM Routine 07/31/2024 12:28 PM EST Multiple fracture Pathological fracture of vertebra with delayed healing, unspecified pathological cause, subsequent encounter Hypercalcemia Lytic lesion of bone on x-ray PROTEIN, TOTAL Routine 07/31/2024 12:28 PM EST Multiple fracture Pathological fracture of vertebra with delayed healing, unspecified pathological cause, subsequent encounter Hypercalcemia Lytic lesion of bone on x-ray CBC WITH AUTO DIFFERENTIAL Routine 07/31/2024 12:28 PM EST Multiple fracture Pathological fracture of vertebra with delayed healing, unspecified pathological cause, subsequent encounter Hypercalcemia Lytic lesion of bone on x-ray IRON AND TIBC Routine 07/31/2024 12:28 PM EST Lytic lesion of bone on x-ray FERRITIN Routine 07/31/2024 12:28 PM EST Lytic lesion of bone on x-ray VITAMIN B12 AND FOLATE Routine 12:28 PM EST Lytic lesion of bone on x-ray SEDIMENTATION RATE Routine 07/31/2024 12:28 PM EST Multiple fracture Pathological fracture of vertebra with delayed healing, unspecified pathological cause, subsequent encounter Hypercalcemia Lytic lesion of bone on x-ray BETA 2 MICROGLOBULIN, SERUM Routine 07/31/2024 12:28 PM EST Multiple fracture Pathological fracture of vertebra with delayed healing, unspecified pathological cause, subsequent encounter Hypercalcemia Lytic lesion of bone on x-ray LACTATE DEHYDROGENASE Routine 07/31/2024 12:28 PM EST Multiple fracture Pathological fracture of vertebra with delayed healing, unspecified pathological cause, subsequent encounter Hypercalcemia Lytic lesion of bone on x-ray PROTEIN ELECTROPHORESIS, SERUM Routine 07/31/2024 12:28 PM EST Multiple fracture Pathological fracture of vertebra with delayed healing, unspecified pathological cause, subsequent encounter Hypercalcemia Lytic lesion of bone on x-ray CARCINOEMBRYONIC ANTIGEN Routine 07/31/2024 12:28 PM EST Multiple fracture Pathological fracture of vertebra with delayed healing, unspecified pathological cause, subsequent encounter Hypercalcemia Lytic lesion of bone on x-ray COMPREHENSIVE METABOLIC PANEL Routine 07/31/2024 12:28 PM EST Multiple fracture Pathological fracture of vertebra with delayed healing, unspecified pathological cause, subsequent encounter Hypercalcemia Lytic lesion of bone on x-ray CBC AND DIFFERENTIAL Routine 07/31/2024 12:28 PM EST Multiple fracture Pathological fracture of vertebra with delayed healing, unspecified pathological cause, subsequent encounter Hypercalcemia Lytic lesion of bone on x-ray XR CHEST 2 VIEWS Routine 07/30/2024 3:14 PM EST Dyspnea, unspecified type Multiple fracture XR SCAPULA BILAT Routine 07/29/2024 2:01 PM EST Shoulder blade pain OXYGEN THERAPY, ADULT Routine 07/27/2024 1:55 PM EST XR LUMBAR SPINE 2-3 VIEWS Routine 07/27/2024 1:40 PM EST Pain TISSUE EXAM Routine 07/27/2024 12:40 PM EST Other osteoporosis with current pathological fracture, vertebra(e), sequela TH AN ENDOTRACHEAL(NO CHARGE) Routine 07/27/2024 12:12 PM EST SD AUGMENTATION PERC VERT INCL CAVITY CREATION EA ADD THOR/LUMB VERT BODY 07/27/2024 11:52 AM EST Other osteoporosis with current pathological fracture, vertebra(e), sequela Case Notes 2 C-ARMS, KYPHOPLASTY KIT, CHEST ROLLS SD AUGMENTATION PERC VERT INCL CAVITY CREATION 1 VERT BODY THORACIC 07/27/2024 11:52 AM EST Other osteoporosis with current pathological fracture, vertebra(e), sequela Case Notes 2 C-ARMS, KYPHOPLASTY KIT, CHEST ROLLS PROCEDURAL ECG Routine 07/27/2024 10:08 AM EST DXA BONE DENSITY STUDY 1+ SITS AXIAL SKEL Routine 04/03/2024 11:51 AM EDT Multiple fractures of ribs, bilateral, subsequent encounter for fracture with delayed healing SCREENING MAMMOGRAPHY BI 2-VIEW BREAST INC CAD Routine 03/07/2024 10:13 AM EDT Encounter for screening mammogram for malignant neoplasm of breast COLONOSCOPY Routine 12/18/2023 HPV Routine 05/16/2021 HEPATITIS C SCREENING Routine 07/22/2007 from Last 3 Months or Most Recently Relevant to Health Maintenance Results * Transfuse RBC (10/06/2024 2:45 PM EDT) Only the most recent of2 resultswithin the time period is included. Ilan Townsend MD BLOOD TRANSFUSION ORDERABLES Final Result * Prepare RBC: 1 Units (10/06/2024 11:43 AM EDT) Only the most recent of2 resultswithin the time period is included. Product Code [id number] 10/06/2024 12:14 PM EDT [facility] Unit Number [id number] 10/07/19 12:14 PM EDT [facility] Crossmatch Compatible 10/06/2024 11:50 AM EDT [facility] Dispense Status Transfused 10/06/2024 12:14 PM EDT [facility] Unit ABO Rh OPOS 10/06/2024 12:14 PM EDT [facility] Unit Expiration Date Time [id number] 10/06/2024 12:14 PM EDT [facility] Unit Blood Type 5100 10/06/2024 12:14 PM EDT [facility] Blood Venous blood specimen / Unknown 10/06/2024 11:43 AM EDT 10/05/2024 1:51 PM EDT us Ilan Townsend MD BLOOD BANK PRODUCT ORDERABLE S Final Result Performing Organization Address [facility]/ZIP Co de Phone Number [facility] [address] [place] [address], [place] [phone] * Antibody identification (10/05/2024 1:15 PM EDT) Antibody Identification Antibody Other. See comments. 10/06/2024 11:48 AM EDT [facility] Comment:Patient on Daratumum ab. All clinically significant antibodies except Jody have been ruled out. Blood Venous blood specimen / Unknown Venipuncture / Unknown 10/05/2024 1:15 PM EDT 10/05/2024 1:51 PM EDT us Ilan Townsend MD LAB BLOOD BANK TEST ORDERABL ES Final Result Performing Organization Address City/[facility]/ZIP Co de Phone Number [facility] [address] [place] [address], [place] [phone] * Type and screen (10/05/2024 1:15 PM EDT) Only the most recent of3 resultswithin the time period is included. ABO Group O 10/06/2024 11:45 AM EDT [facility] Rh Type Positive 10/06/2024 11:45 AM EDT [facility] Antibody Screen Positive 10/06/2024 11:45 AM EDT [facility] Blood Venous blood specimen / Unknown Venipuncture / Unknown 10/05/2024 1:15 PM EDT 10/05/2024 1:51 PM EDT Ilan Townsend MD LAB BLOOD BANK TEST ORDERABL ES Final Result [facility] [address] [place] [address], [place] [phone] * (ABNORMAL) CBC auto differential (10/05/2024 11:55 AM EDT) Only the most recent of10 resultswithin the time period is included. WBC 2.8(L) 4.8 - 10.8 K/mcL LAB [facility] RBC 2.60(L) 3.80 - 4.80 M/mcL LAB HEMETOLOGY METHOD 10/05/2024 12:[address] [facility] Hemoglobin 7.7(L) 11.5 - 16.0 g/dL LAB HEMETOLOGY METHOD 10/05/2024 12:[address] [facility] Hematocrit 23.9(L) 35.0 - 47.0 % LAB HEMETOLOGY METHOD 10/05/2024 12:27 PM EDT [facility] MCV 93.0 79.0 - 98.0 FL LAB HEMETOLOGY METHOD [facility]24 [facility] MCH 30.0 27.0 - 32.0 pcg LAB HEMETOLOGY METHOD 10/05/2024 12:[address] [facility] MCHC 32.2 32.0 - 37.0 g/dL LAB HEMETOLOGY METHOD 10/05/2024 12:[address] [facility] RDW 15.1(H) 11.0 - 15.0 % LAB HEMETOLOGY METHOD 10/05/2024 12:[address] [facility] Platelets 176 130 - 400 K/mcL LAB HEMETOLOGY METHOD 10/05/2024 12:[address] [facility] MPV 10.1 7.0 - 11.0 FL LAB HEMETOLOGY METHOD 10/05/2024 12:[address] [facility] NRBC 0.0 <1.0 % LAB HEMETOLOGY METHOD 10/05/2024 12:[address] [facility] NRBC Absolute 0.00 <0.10 K/mcL LAB HEMETOLOGY METHOD 10/05/2024 12:[address] [facility] Neutrophils Relative 54.5 % LAB HEMETOLOGY METHOD 10/05/2024 12:[address] [facility] Lymphocytes Relative 31.6 % LAB HEMETOLOGY METHOD 10/05/2024 12:[address] [facility] Monocytes Relative 10.2 % LAB HEMETOLOGY METHOD 10/05/2024 12:[address] [facility] Eosinophils Relative 1.5 % LAB HEMETOLOGY METHOD 10/05/2024 12:[address] [facility] Basophils Relative 1.8 % LAB HEMETOLOGY METHOD 10/05/2024 12:[address] [facility] Immature Granulocytes Relative 0.4 % LAB HEMETOLOGY METHOD 10/05/2024 12:[address] [facility] Neutrophils Absolute 1.50 1.50 - 7.00 K/mcL LAB HEMETOLOGY METHOD 10/05/2024 12:[address] [facility] Lymphocytes Absolute 0.87(L) 1.00 - 5.00 K/mcL LAB HEMETOLOGY METHOD 10/05/2024 12:27 PM EDT [facility] Monocytes Absolute 0.28 0.20 - 1.00 K/mcL LAB HEMETOLOGY METHOD 10/05/2024 12:27 PM EDT [facility] Eosinophils Absolute 0.04 0.00 - 0.50 K/mcL LAB HEMETOLOGY METHOD 10/05/2024 12:27 PM EDT [facility] Basophils Absolute 0.05 0.00 - 0.20 K/mcL LAB HEMETOLOGY METHOD 10/05/2024 12:27 PM EDT [facility] Immature Granulocytes Absolute 0.01 0.00 - 0.03 K/mcL LAB HEMETOLOGY METHOD 10/05/2024 12:27 PM EDT [facility] Blood Venous blood specimen / Unknown Venipuncture / Unknown 10/05/2024 11:55 AM EDT 10/05/2024 12:09 PM EDT us Ilan Townsend MD LAB BLOOD ORDERABLES Final R esult [facility] [address] [place] [address], [place] [phone] * (ABNORMAL) Comprehensive metabolic panel (10/05/2024 11:55 AM EDT) Only the most recent of7 resultswithin the time period is included. Sodium 140 133 - 145 mmol/L LAB CHEMISTRY METHOD 10/05/2024 1:43 PM EDT [facility] Potassium 3.2(L) 3.5 - 5.5 mmol/L LAB CHEMISTRY METHOD 10/05/2024 1:43 PM EDT [facility] Chloride 106 96 - 110 mmol/L LAB CHEMISTRY METHOD 10/05/2024 1:43 PM EDT [facility] CO2 25 21 - 32 mmol/L LAB CHEMISTRY METHOD 10/05/2024 1:[address] [facility] Anion Gap 9 3 - 11 LAB CHEMISTRY METHOD 10/05/2024 1:[address] [facility] Glucose 94 70 - 100 mg/dL LAB CHEMISTRY METHOD 10/05/2024 1:[address] [facility] BUN 11 5 - 25 mg/dL LAB CHEMISTRY METHOD 10/05/2024 1:[address] [facility] Creatinine 1.20(H) 0.50 - 1.10 mg/dL LAB CHEMISTRY METHOD 10/05/2024 1:[address] [facility] eGFR 51(L) >=60 mL/min/1. 73m2 LAB CHEMISTRY METHOD 10/05/2024 1:[address] [facility] Comment:Calculation based on the??Chronic Kidney Disease Epidemiology Collaboration (CKD-EPI) equation refit??without adjustment for race. BUN/Creatinine Ratio 9.2 LAB CHEMISTRY METHOD 10/05/2024 1:[address] [facility] Calcium 8.2(L) 8.5 - 10.5 mg/dL LAB CHEMISTRY METHOD 10/05/2024 1:[address] [facility] AST (SGOT) 10 10 - 42 unit/L LAB CHEMISTRY METHOD 10/05/2024 1:[address] [facility] ALT (SGPT) 17 10 - 60 unit/L LAB CHEMISTRY METHOD 10/05/2024 1:[address] [facility] Alkaline Phosphatase 98 42 - 121 unit/L LAB CHEMISTRY METHOD 10/05/2024 1:[address] [facility] Total Protein 5.6(L) 6.0 - 8.0 g/dL LAB CHEMISTRY METHOD 10/05/2024 1:[address] [facility] Albumin 3.1(L) 3.2 - 5.0 g/dL LAB CHEMISTRY METHOD 10/05[facility]2024 [facility] Total Bilirubin 0.4 0.0 - 1.4 mg/dL LAB CHEMISTRY METHOD 10/05/2024 1:43 PM EDT [facility] Blood Venous blood specimen / Unknown Venipuncture / Unknown 10/05/2024 11:55 AM EDT 10/05/2024 12:09 PM EDT Ilan Townsend MD LAB BLOOD ORDERABLES Final R esult [facility] [address] [place] [address], [place] [phone] * (ABNORMAL) Complete blood count (10/02/2024 3:57 PM EDT) Only the most recent of3 resultswithin the time period is included. WBC 4.0(L) 4.8 - 10.8 K/mcL LAB HEMETOLOGY METHOD 10/02/2024 6:[address] [facility] RBC 2.70(L) 3.80 - 4.80 M/mcL LAB HEMETOLOGY METHOD 10/02/2024 6:[address] [facility] Hemoglobin 8.1(L) 11.5 - 16.0 g/dL LAB HEMETOLOGY METHOD 10/02/2024 6:[address] [facility] Hematocrit 25.0(L) 35.0 - 47.0 % LAB HEMETOLOGY METHOD 10/02[facility]24 [facility] MCV 93.3 79.0 - 98.0 FL LAB HEMETOLOGY METHOD 10/[facility]2024 [facility] MCH 30.2 27.0 - 32.0 pcg LAB HEMETOLOGY METHOD 10/02/2024 6:[address] [facility] MCHC 32.4 32.0 - 37.0 g/dL LAB HEMETOLOGY METHOD 10/02/2024 6:23 PM EDT [facility] RDW 15.2(H) 11.0 - 15.0 % LAB HEMETOLOGY METHOD 10/02/2024 6:23 PM EDT [facility] Platelets 205 130 - 400 K/mcL LAB HEMETOLOGY METHOD 10/02/2024 6:23 PM EDT [facility] MPV 11.3(H) 7.0 - 11.0 FL LAB HEMETOLOGY METHOD 10/02/2024 6:23 PM EDT [facility] NRBC 0.0 <1.0 % LAB HEMETOLOGY METHOD 10/02/2024 6:23 PM EDT [facility] NRBC Absolute 0.00 <0.10 K/mcL LAB HEMETOLOGY METHOD 10/02/2024 6:23 PM EDT [facility] Blood Venous blood specimen / Unknown Venipuncture / Unknown 10/02/2024 3:57 PM EDT 10/02/2024 3:57 PM EDT Ilan Townsend MD LAB BLOOD ORDERABLES Final R esult [facility] [address] [place] [address], * (ABNORMAL) Manual differential (09/25/2024 3:51 PM EDT) Only the most recent of3 resultswithin the time period is included. Neutrophils % 51.0 % LAB HEMETOLOGY METHOD 09/25/2024 7:47 PM EDT [facility] Bands % 3.0 % LAB HEMETOLOGY METHOD 09/25/2024 7:47 PM EDT [facility] Lymphocytes % 38.0 % LAB HEMETOLOGY METHOD 09/25/2024 7:47 PM EDT [facility] Monocytes % 1.0 % LAB HEMETOLOGY METHOD 09/25/2024 7:[address] [facility] Eosinophils % 5.0 % LAB HEMETOLOGY METHOD 09/25/2024 7:[address] [facility] Basophils % 1.0 % LAB HEMETOLOGY METHOD 09/25/2024 7:[address] [facility] Myelocytes % 1.0(H) % LAB HEMETOLOGY METHOD 09/25/2024 7:[address] [facility] Neutrophils Absolute Manual 0.66(L) 1.50 - 7.00 K/mcL LAB HEMETOLOGY METHOD 09/25/2024 7:[address] [facility] Bands Absolute Manual 0.04(H) 0.00 - 0.00 K/mcL LAB HEMETOLOGY METHOD 09/25/2024 7:[address] [facility] Lymphocytes Absolute 0.49(L) 1.00 - 5.00 K/mcL LAB HEMETOLOGY METHOD 09/25/2024 7:[address] [facility] Monocytes Absolute Manual 0.01(L) 0.20 - 1.00 K/mcL LAB HEMETOLOGY METHOD 09/25/2024 7:[address] [facility] Eosinophils Absolute Manual 0.07 0.00 - 0.50 K/mcL LAB HEMETOLOGY METHOD 09/25/2024 7:[address] [facility] Basophils Absolute Manual 0.01 0.00 - 0.20 K/mcL LAB HEMETOLOGY METHOD 09/25/2024 7:[address] [facility] Myelocytes Absolute Manual 0.01(H) 0.00 - 0.00 K/mcL LAB HEMETOLOGY METHOD 09/25/2024 7:[address] [facility] Rbc Morphology Present( A) Consistent with indices, Normal for [place] LAB HEMETOLOGY METHOD 09/25/2024 7:47 PM EDT [facility] Comment:RBC: Morphology agre es with CBC Platelet Morphology - WAM See Note(A) Normal LAB HEMETOLOGY METHOD 09/25/2024 7:47 PM EDT [facility] Comment:PLT: Large platelets seen Ovalocytes Present 5 - 10%(A) (none) LAB HEMETOLOGY METHOD 09/25/2024 7:47 PM EDT [facility] Schistocytes Present < 5%(A) (none) LAB HEMETOLOGY METHOD 09/25/2024 7:47 PM EDT [facility] Blood Venous blood specimen / Unknown Venipuncture / Unknown 09/25/2024 3:51 PM EDT 09/25/2024 3:51 PM EDT Ilan Townsend MD LAB BLOOD ORDERABLES Final R esult Performing Organization Address City/[facility]/ZIP Co de Phone Number [facility] [address] [place] [address], * Magnesium (09/19/2024 8:59 AM EDT) Only the most recent of5 resultswithin the time period is included. Magnesium 2.0 1.9 - 2.6 mg/dL LAB CHEMISTRY METHOD 09/19/2024 10:34 AM EDT [facility] Blood Venous blood specimen / Unknown Venipuncture / Unknown 09/19/2024 8:59 AM EDT 09/19/2024 9:04 AM EDT Jani Hunt MD LAB BLOOD ORDERABLES Final Re sult Performing Organization Address [facility]/ZIP Co de Phone Number [facility] [address] [place] [address], * Vancomycin, trough (09/19/2024 8:59 AM EDT) Only the most recent of2 resultswithin the time period is included. [facility] Vancomycin Trough 19.6 10.0 - 20.0 mcg/mL LAB CHEMISTRY METHOD 09/19/2024 9:[address] [facility] Blood Venous blood specimen / Unknown Venipuncture / Unknown 09/19/2024 8:59 AM EDT 09/19/2024 9:04 AM EDT us Jani Hunt MD LAB BLOOD ORDERABLES Final Re sult [facility] [address] [place] [address], [place] [phone] * (ABNORMAL) Basic metabolic panel (09/19/2024 6:01 AM EDT) Only the most recent of8 resultswithin the time period is included. [facility] Sodium 142 133 - 145 mmol/L LAB CHEMISTRY METHOD 09/19/2024 7:[address] [facility] Potassium 3.2(L) 3.5 - 5.5 mmol/L LAB CHEMISTRY METHOD 09/19/2024 7:[address] [facility] Chloride 110 96 - 110 mmol/L LAB CHEMISTRY METHOD 09/19/2024 7:[address] [facility] CO2 27 21 - 32 mmol/L LAB CHEMISTRY METHOD 09/19/2024 7:[address] [facility] Anion Gap 5 3 - 11 LAB CHEMISTRY METHOD 09/19/2024 7:[address] [facility] Glucose 105(H) 70 - 100 mg/dL LAB CHEMISTRY METHOD 09/19/2024 7:[address] [facility] BUN 11 5 - 25 mg/dL LAB CHEMISTRY METHOD 09/19/2024 7:[address] [facility] Creatinine 1.00 0.50 - 1.10 mg/dL LAB CHEMISTRY METHOD 09/19/2024 7:20 AM EDT [facility] eGFR 63 >=60 mL/min/1. 73m2 LAB CHEMISTRY METHOD 09/19/2024 7:20 AM EDT [facility] Comment:Calculation based on the??Chronic Kidney Disease Epidemiology Collaboration (CKD-EPI) equation refit??without adjustment for race. BUN/Creatinine Ratio 11.0 LAB CHEMISTRY METHOD 09/19/2024 7:20 AM EDT [facility] Calcium 7.8(L) 8.5 - 10.5 mg/dL LAB CHEMISTRY METHOD 09/19/2024 7:20 AM EDT [facility] Blood Venous blood specimen / Unknown Venipuncture / Unknown 09/19/2024 6:01 AM EDT 09/19/2024 6:45 AM EDT us Jani Hunt MD LAB BLOOD ORDERABLES Final Re sult Performing Organization Address City/[facility]/ZIP Co de Phone Number [facility] [address] [place] [address], [place] [phone] * Phosphorus (09/17/2024 6:17 AM EDT) Only the most recent of3 resultswithin the time period is included. Phosphorus 2.6 2.5 - 4.5 mg/dL LAB CHEMISTRY METHOD 09/17/2024 8:29 AM EDT [facility] Blood Venous blood specimen / Unknown Venipuncture / Unknown 09/17/2024 6:17 AM EDT 09/17/2024 7:02 AM EDT us Jani Hunt MD LAB BLOOD ORDERABLES Final Re sult Performing Organization Address City/[facility]/ZIP Co de Phone Number [facility] [address] [place] [address], [place] [phone] * CT Head wo Contrast (09/16/2024 4:15 PM EDT) Anatomical Region Laterality Modality Head and Neck Computed Tomogra phy 09/16/2024 4:39 PM EDT Impressions 09/16/2024 4:41 PM EDT No mass, hemorrhage or acute territorial infarct. -------- FINAL REPORT -------- Dictated By: Meron Barnett Dictated Date: 09/16/2024 16:39 ET Assigned Physician: Meron Barnett Reviewed and Electronically Signed By: Meron Barnett Signed Date: 09/16/2024 16:41 ET Workstation ID: [id number] Transcribed By: Self Edit Transcribed Date: 09/16/2024 16:39 ET Narrative 09/16/2024 4:41 PM EDT PROCEDURE: HEAD CT INDICATION: new headache, febrile TECHNIQUE: CT of the head without intravenous contrast. Multiplanar reformats. The examination was performed utilizing dose reduction techniques. Total DLP 809 COMPARISON: ??No priors available. FINDINGS: ?? No acute territorial infarct, mass effect, or intracranial hemorrhage. No significant white matter disease No hydrocephalus. Visualized paranasal sinuses are clear. Mastoid air cells are clear. No calvarial fracture. ??Tiny lytic lesions noted throughout the skull. Procedure Note Meron Barnett MD - 09/16/2024 PROCEDURE: HEAD CT INDICATION: new headache, febrile TECHNIQUE: CT of the head without intravenous contrast. Multiplanarreformats. The examination was performed utilizing dose reductiontechniques. Total DLP 809 COMPARISON: No priors available. FINDINGS: No acute territorial infarct, mass effect, or intracranial hemorrhage. No significant white matter disease No hydrocephalus. Visualized paranasal sinuses are clear. Mastoid air cells are clear. No calvarial fracture. Tiny lytic lesions noted throughout the skull. IMPRESSION: No mass, hemorrhage or acute territorial infarct. -------- FINAL REPORT -------- Dictated By: Meron Barnett Dictated Date: 09/16/2024 16:39 ET Assigned Physician: Meron Barnett Reviewed and Electronically Signed By: Meron Barnett Signed Date: 09/16/2024 16:41 ET Workstation ID: [id number] Transcribed By: Self Edit Transcribed Date: 09/16/2024 16:39 ET Maritza GOLDSMITH IMG CT PROCEDURES Final Result * (ABNORMAL) Urinalysis with reflex microscopic and culture (09/15/2024 1:02 PM EDT) Specific Martin Urine 1.012 1.003 - 1.030 LAB URINALYSIS - AUTOMATED METHOD 09/15/2024 1:[address] [facility] pH, Urine 6.5 5.0 - 8.0 pH LAB URINALYSIS - AUTOMATED METHOD 09/15/2024 1:[address] [facility] Leukocytes, Urine Negative Negative LAB URINALYSIS - AUTOMATED METHOD 09/15/2024 1:[address] [facility] Nitrite, Urine Negative Negative LAB URINALYSIS - AUTOMATED METHOD 09/15/2024 1:[address] [facility] Protein, Urine 100(A) <=Trace mg/dL LAB URINALYSIS - AUTOMATED METHOD 09/15/2024 1:[address] [facility] Glucose, Urine 100(A) Negative mg/dL LAB URINALYSIS - AUTOMATED METHOD 09/15/2024 1:[address] [facility] Ketones, Urine Negative Negative mg/dL LAB URINALYSIS - AUTOMATED METHOD 09/15/2024 1:[address] [facility] Urobilinogen, Urine 0.2 0.2 - 1.0 mg/dL LAB URINALYSIS - AUTOMATED METHOD 09/15/2024 1:[address] [facility] Bilirubin, Urine Negative Negative LAB URINALYSIS - AUTOMATED METHOD 09/15/2024 1:[address] [facility] Blood, Urine Negative Negative LAB URINALYSIS - AUTOMATED METHOD 09/15/2024 1:[address] [facility] RBC, Urine 5.4(H) 0 - 4 /HPF LAB URINALYSIS - AUTOMATED METHOD 09/15/2024 1:38 PM EDT [facility] WBC, Urine 2.8 0 - 4 /HPF LAB URINALYSIS - AUTOMATED METHOD 09/15/2024 1:38 PM EDT [facility] Squamous Epithelial, Urine 91(H) 0 - 60 /LPF LAB URINALYSIS - AUTOMATED METHOD 09/15/2024 1:38 PM EDT [facility] Bacteria, Urine Negative Negative /HPF LAB URINALYSIS - AUTOMATED METHOD 09/15/2024 1:38 PM EDT [facility] Hyaline Casts, Urine 1.2 0 - 3 /LPF LAB URINALYSIS - AUTOMATED METHOD 09/15/2024 1:38 PM EDT [facility] Urine Urine specimen obtained by clean catch procedure / Unknown Non-blood Collection / Unknown 09/15/2024 1:02 PM EDT 09/15/2024 1:07 PM EDT Ilan Townsend MD LAB URINE ORDERABLES Final R esult Performing Organization Address City/[facility]/ZIP Co de Phone Number [facility] [address] [place] [address], [place] [phone] * Velazquez urine culture tube (09/15/2024 1:02 PM EDT) Extra Tube Hold for add-ons. 09/15/2024 3:02 PM EDT [facility] Comment:Auto resulted. Urine Urine specimen obtained by clean catch procedure / Unknown Non-blood Collection / Unknown 09/15/2024 1:02 PM EDT 09/15/2024 1:07 PM EDT us Ilan Townsend MD LAB URINE ORDERABLES Final R esult Performing Organization Address City/[facility]/ZIP Co de Phone Number [facility] [address] [place] [address], [place] [phone] * Culture blood (09/15/2024 11:08 AM EDT) Only the most recent of2 resultswithin the time period is included. Culture, Blood No growth at 5 days LAB MICROBIOLOGY METHOD 09/20/2024 12:01 PM EDT [facility] Blood Venous blood specimen / Unknown Venipuncture / Unknown 09/15/2024 11:08 AM EDT 09/15/2024 11:14 AM EDT Ani GOLDSMITH LAB MICROBIOLOGY - GENERAL OR DERABLES Final Result Performing Organization Address City/[facility]/ZIP Co de Phone Number [facility] [address] [place] [address], [place] [phone] * Lactate (09/15/2024 11:08 AM EDT) Lactate 1.4 0.4 - 2.0 mmol/L LAB CHEMISTRY METHOD 09/15/2024 11:43 AM EDT [facility] Blood Venous blood specimen / Unknown Venipuncture / Unknown 09/15/2024 11:08 AM EDT 09/15/2024 11:16 AM EDT Ani GOLDSMITH LAB BLOOD ORDERABLES Final Re sult Performing Organization Address City/[facility]/ZIP Co de Phone Number [facility] [address] [place] [address], [place] [phone] * XR Chest 1 View (09/15/2024 10:55 AM EDT) Anatomical Region Laterality Modality Body Radiographic Maira ging 09/15/2024 11:0 1 AM EDT Impressions 09/15/2024 11:02 AM EDT Bandlike opacities at the left base and the mid--lower right lung. ??These are nonspecific and may simply represent scarring and/or atelectasis. ??Early pneumonia, particularly at the left base, cannot be excluded. -------- FINAL REPORT -------- Dictated By: Orestes Fang Dictated Date: 09/15/2024 11:01 ET Assigned Physician: Orestes Fang Reviewed and Electronically Signed By: Orestes Fang Signed Date: 09/15/2024 11:02 ET Workstation ID: [id number] Transcribed By: Self Edit Transcribed Date: 09/15/2024 11:01 ET Narrative 09/15/2024 11:02 AM EDT PROCEDURE: AP chest radiograph. HISTORY: Fever of unknown origin infection wbc 0.5 temp 102f. COMPARISON: Mildly hypoventilatory inspiratory effort. ??There are bandlike opacities at the left base and in the mid--lower right lung. ??Mild generalized coarsening of lung markings. ??Mild cardiomegaly. ??No pneumothorax or visible pleural effusion. ??No pulmonary edema. ??Bones are diffusely demineralized. ??Degenerative changes of the spine. ??Vertebroplasty cement in the lower thoracic vertebrae. ??Calcifications adjacent to the right humeral head suggestive of calcific tendinitis. Procedure Note Orestes Fang MD - 09/15/2024 PROCEDURE: AP chest radiograph. HISTORY: Fever of unknown origin infection wbc 0.5 temp 102f. COMPARISON: Mildly hypoventilatory inspiratory effort. There are bandlike opacitiesat the left base and in the mid--lower right lung. Mild generalizedcoarsening of lung markings. Mild cardiomegaly. No pneumothorax orvisible pleural effusion. No pulmonary edema. Bones are diffuselydemineralized. Degenerative changes of the spine. Vertebroplasty cementin the lower thoracic vertebrae. Calcifications adjacent to the righthumeral head suggestive of calcific tendinitis. IMPRESSION: Bandlike opacities at the left base and the mid--lower right lung. Theseare nonspecific and may simply represent scarring and/or atelectasis.Early pneumonia, particularly at the left base, cannot be excluded. -------- FINAL REPORT -------- Dictated By: Orestes Fang Dictated Date: 09/15/2024 11:01 ET Assigned Physician: Orestes Fang Reviewed and Electronically Signed By: Orestes Fang Signed Date: 09/15/2024 11:02 ET Workstation ID: [id number] Transcribed By: Self Edit Transcribed Date: 09/15/2024 11:01 ET Ani GOLDSMITH IMG XR PROCEDURES Final Resul t * ECG 12 lead (09/15/2024 10:44 AM EDT) Pathologist [facility] Ventricular Rate ECG 88 BPM GEMUSE Atrial Rate 88 BPM GEMUSE P-R Interval 130 ms GEMUSE QRS Duration 112 ms GEMUSE Q-T Interval 314 ms GEMUSE QTc 379 ms GEMUSE P Wave [place] 44 degrees GEMUSE R [place] 0 degrees GEMUSE T [place] 63 degrees GEMUSE ECG Interpretation Sinus rhythm with frequent Premature ventricular complexes Incomplete right bundle branch block Borderline ECG When compared with ECG of 27-JUL-2024 10:08, Premature ventricular complexes are now Present Confirmed by Dalton SMITH YUFENG ([id number]) on 09/15/2024 8:23:27 PM GEMUSE 09/15/2024 10:4 4 AM EDT 09/15/2024 8:23 PM EDT Ani GOLDSMITH ECG ORDERABLES Final Result GEMUSE * Respiratory virus panel molecular study (09/15/2024 10:35 AM EDT) [facility] Adenovirus Detection by PCR Not Detected Not Detected LAB MICROBIOLOGY METHOD 09/15/2024 11:51 AM EDT [facility] Influenza A PCR Not Detected Not Detected LAB MICROBIOLOGY METHOD 09/15/2024 11:51 AM EDT [facility] Influenza B PCR Not Detected Not Detected LAB MICROBIOLOGY METHOD 09/15/2024 11:51 AM EDT [facility] Coronavirus 229E Not Detected Not Detected LAB MICROBIOLOGY METHOD 09/15/2024 11:51 AM EDT [facility] Coronavirus HKU1 Not Detected Not Detected LAB MICROBIOLOGY METHOD 09/15/2024 11:51 AM EDT [facility] Coronavirus OC43 Not Detected Not Detected LAB MICROBIOLOGY METHOD 09/15/2024 11:51 AM EDT [facility] Coronavirus NL63 Not Detected Not Detected LAB MICROBIOLOGY METHOD 09/15/2024 11:51 AM EDT [facility] Parainfluenza Virus 1 Not Detected Not Detected LAB MICROBIOLOGY METHOD 09/15/2024 11:51 AM EDT [facility] Parainfluenza Virus 2 Not Detected Not Detected LAB MICROBIOLOGY METHOD 09/15/2024 11:51 AM EDT [facility] Parainfluenza Virus 3 Not Detected Not Detected LAB MICROBIOLOGY METHOD 09/15/2024 11:51 AM EDT [facility] Parainfluenza Virus 4 Not Detected Not Detected LAB MICROBIOLOGY METHOD 09/15/2024 11:51 AM EDT [facility] RSV PCR Not Detected Not Detected LAB MICROBIOLOGY METHOD 09/15/2024 11:51 AM EDT [facility] Human Metapneumovirus A and B Not Detected Not Detected LAB MICROBIOLOGY METHOD 09/15/2024 11:51 AM EDT [facility] Rhinovirus/Entero virus Not Detected Not Detected LAB MICROBIOLOGY METHOD 09/15/2024 11:51 AM EDT [facility] Bordetella pertussis Not Detected Not Detected LAB MICROBIOLOGY METHOD 09/15/2024 11:51 AM EDT [facility] Bordetella parapertussis Not Detected Not Detected LAB MICROBIOLOGY METHOD 09/15/2024 11:51 AM EDT [facility] Mycoplasma pneumo by PCR Not Detected Not Detected LAB MICROBIOLOGY METHOD 09/15/2024 11:51 AM EDT [facility] Chlamydia pneumoniae Not Detected Not Detected LAB MICROBIOLOGY METHOD 09/15/2024 11:51 AM EDT [facility] SARS COV-2 Not Detected Not Detected LAB MICROBIOLOGY METHOD 09/15/2024 11:51 AM EDT [facility] Swab Structure of left anterior naris / Unknown Non-blood Collection / Unknown 09/15/2024 10:35 AM EDT 09/15/2024 10:53 AM EDT Narrative [facility] - 09/15/2024 11:51 AM EDT Testing was performed using the [employer] Respiratory Pathogen PCR Assay. All results must be correlated with the clinical findings. Results should not be used as the sole basis for diagnosis. False Negative results may occur from the presence of sequence variants in the region targeted by the assay or the presence of inhibitors. Results may be affected by concurrent antiviral/antimicrobial therapy or levels of organisms that are below the limit of detection. Ilan Townsend MD LAB MICROBIOLOGY - GENERAL O RDERABLES Final Result Performing Organization Address City/[facility]/ZIP Co de Phone Number [facility] [address] [place] [address], * Pathology review, blood smear (09/15/2024 9:03 AM EDT) Pathologist Review Blood Smear Pancytopenia: consider chemotherapy effect or other etiology. 09/15/2024 12:05 PM EDT [facility] Blood Venous blood specimen / Unknown Venipuncture / Unknown 09/15/2024 9:03 AM EDT 09/15/2024 9:19 AM EDT Ilan Townsend MD LAB BLOOD ORDERABLES Final R esult Performing Organization Address City/[facility]/ZIP Co de Phone Number [facility] [address] [place] [address], [place] [phone] * (ABNORMAL) Procalcitonin (09/15/2024 9:03 AM EDT) Procalcitonin 1.17(H) <=0.16 ng/mL LAB CHEMISTRY METHOD 09/16/2024 8:35 AM EDT [facility] Blood Venous blood specimen / Unknown Venipuncture / Unknown 09/15/2024 9:03 AM EDT 09/15/2024 9:19 AM EDT Narrative [facility] - 09/16/2024 8:35 AM EDT Procalcitonin > 2.00 ng/ml: Procalcitonin Levels above 2.00 ng/ml, on the first day of ICU admission represent a high risk for progression to severe sepsis and/or septic shock. Procalcitonin < 0.50 ng/ml: Procalcitonin levels below 0.50 ng/ml on the first day of ICU admission represent a low risk for progression to severe sepsis and/or septic shock. Concentrations <0.5 ng/mL do not exclude an infection, on account of local ized infections (without systemic signs) which can be associated with such low concentrations, or a systemic infection in its initial stages (<6 hours). Furthermore, increased procalcitonin can occur without infection. PCT concentrations between 0.5 and 2.0 ng/mL should be interpreted taking into account the patient's history. It is recommended to retest PCT within 6-24 hours if any concentrations <2.0 ng/mL are obtained. Maritza GOLDSMITH LAB BLOOD ORDERABLES Final Resu lt [facility] [address] [place] [address], * Lactate dehydrogenase (09/15/2024 9:03 AM EDT) Only the most recent of2 resultswithin the time period is included. LDH 190 120 - 246 unit/L LAB CHEMISTRY METHOD 09/15/2024 4:31 PM EDT [facility] Blood Venous blood specimen / Unknown Venipuncture / Unknown 09/15/2024 9:03 AM EDT 09/15/2024 9:19 AM EDT Maritza GOLDSMITH LAB BLOOD ORDERABLES Final Resu lt Performing Organization Address [facility] de Phone Number [facility] [address] [place] [address], [place] [phone] * (ABNORMAL) Haptoglobin (09/15/2024 9:03 AM EDT) Haptoglobin 244(H) 16 - 200 mg/dL LAB CHEMISTRY METHOD 09/15/2024 4:31 PM EDT [facility] Blood Venous blood specimen / Unknown Venipuncture / Unknown 09/15/2024 9:03 AM EDT 09/15/2024 9:19 AM EDT Maritza GOLDSMITH LAB BLOOD ORDERABLES Final Resu lt Performing Organization Address [facility] de Phone Number [facility] [address] [place] [address], [place] [phone] * (ABNORMAL) Creatinine, Serum (09/09/2024 1:38 PM EDT) Creatinine 1.17(H) 0.50 - 1.10 mg/dL LAB CHEMISTRY METHOD 09/09/2024 8:40 PM EDT [facility] eGFR 52(L) >=60 mL/min/1. 73m2 LAB CHEMISTRY METHOD 09/09/2024 8:40 PM EDT [facility] Comment:Calculation based on the??Chronic Kidney Disease Epidemiology Collaboration (CKD-EPI) equation refit??without adjustment for race. Blood Venous blood specimen / Unknown Venipuncture / Unknown 09/09/2024 1:38 PM EDT 09/09/2024 2:04 PM EDT Ilan Townsend MD LAB BLOOD ORDERABLES Final R esult Performing Organization Address City/[facility]/ZIP Co de Phone Number [facility] [address] [place] [address], [place] [phone] * Calcium (09/09/2024 1:38 PM EDT) Calcium 8.7 8.5 - 10.5 mg/dL LAB CHEMISTRY METHOD 09/09/2024 8:53 PM EDT [facility] Blood Venous blood specimen / Unknown Venipuncture / Unknown 09/09/2024 1:38 PM EDT 09/09/2024 2:04 PM EDT us Ilan Townsend MD LAB BLOOD ORDERABLES Final R esult Performing Organization Address City/[facility]/ZIP Co de Phone Number [facility] [address] [place] [address], [place] [phone] * Albumin (09/09/2024 1:38 PM EDT) [facility] Albumin 3.5 3.2 - 5.0 g/dL LAB CHEMISTRY METHOD 09/09/2024 8:40 PM EDT [facility] Blood Venous blood specimen / Unknown Venipuncture / Unknown 09/09/2024 1:38 PM EDT 09/09/2024 2:04 PM EDT us Ilan Townsend MD LAB BLOOD ORDERABLES Final R esult [facility] [address] [place] [address], [place] [phone] * IR Bx and Asp Bone Marrow (08/17/2024 12:25 PM EDT) Anatomical Region Laterality Modality Interventional R adiology 08/17/2024 10:5 9 AM EDT Impressions 08/17/2024 11:00 AM EDT Successful bone marrow aspiration/biopsy as described. ?? -------- FINAL REPORT -------- Dictated By: Fermin Pete Dictated Date: 08/17/2024 10:59 ET Assigned Physician: Fermin Pete Reviewed and Electronically Signed By: Fermin Pete Signed Date: 08/17/2024 11:00 ET Workstation ID: [id number] Transcribed By: Self Edit Transcribed Date: 08/17/2024 10:59 ET Narrative 08/17/2024 11:[address]-guided bone marrow biopsy. ?? INDICATION: Pancytopenia. Interventionalist: Dr. Fermin Pete Acuity: Chronic Laterality: Right PROCEDURE: Informed consent was obtained from the patient. ??The patient was placed in the CT scanner in prone position. ??Initial image was obtained through the bony pelvis with overlying skin markers. ??Appropriate access site was identified. ?? Moderate sedation: Under direct physician supervision, the patient was moderately sedated with ??50 mcg FENTANYL and 2 mg VERSED IV for a total of 20 minutes. An independent interventional radiology nurse observer trained in conscious sedation provided continuous physiologic monitoring of the patient during the entirety of the procedure through recovery. Local anesthesia was provided with 2% lidocaine. ??After making a small stab incision with a #11 blade scalpel, an 11-gauge needle was advanced to the posterior iliac crest. Additional lidocaine was provided at the level of the periosteum. ?? The needle was advanced through the bony cortex and a heparinized marrow sample was obtained. ??A core sample was then obtained. ??The needle was removed. ??Hemostasis was achieved. ??The patient tolerated procedure with no immediate complications. ?? Procedure Note Fermin Pete MD - 08/17/2024 CT-guided bone marrow biopsy. INDICATION: Pancytopenia. Interventionalist: Dr. Fermin Pete Acuity: Chronic Laterality: Right PROCEDURE: Informed consent was obtained from the patient. The patient was placed inthe CT scanner in prone position. Initial image was obtained through thebony pelvis with overlying skin markers. Appropriate access site wasidentified. Moderate sedation: Under direct physician supervision, the patient wasmoderately sedated with 50 mcg FENTANYL and 2 mg VERSED IV for a total of20 minutes. An independent interventional radiology nurse observer trainedin conscious sedation provided continuous physiologic monitoring of thepatient during the entirety of the procedure through recovery. Local anesthesia was provided with 2% lidocaine. After making a smallstab incision with a #11 blade scalpel, an 11-gauge needle was advanced tothe posterior iliac crest. Additional lidocaine was provided at the levelof the periosteum. The needle was advanced through the bony cortex and a heparinized marrowsample was obtained. A core sample was then obtained. The needle wasremoved. Hemostasis was achieved. The patient tolerated procedure withno immediate complications. IMPRESSION: Successful bone marrow aspiration/biopsy as described. -------- FINAL REPORT -------- Dictated By: Fermin Pete Dictated Date: 08/17/2024 10:59 ET Assigned Physician: Fermin Pete Reviewed and Electronically Signed By: Fermin Pete Signed Date: 08/17/2024 11:00 ET Workstation ID: [id number] Transcribed By: Self Edit Transcribed Date: 08/17/2024 10:59 ET us Teagan GOLDSMITH IMG IR PROCEDURES Final Res ult * Cytogentic Miscellaneous (08/17/2024 8:59 AM EDT) Pathologist [facility] Scan Result See Scanned Result 08/26/2024 2:33 PM EDT EXTERNAL LAB (NON-INTERFAC ED) Bone Marrow Specimen from bone marrow obtained by aspiration / Unknown 08/17/2024 8:59 AM EDT 08/17/2024 12:07 PM EDT Teagan GOLDSMITH LAB CYTOGENETICS ORDERABLES Final Result EXTERNAL LAB (NON-INTERFACED) * Flow cytometry (08/17/2024 8:59 AM EDT) Flow Cytometry Interpretation Bone marrow, Flow cytometry: - Most of the events are plasma cells with bright expression of CD38 and CD138 along with absent of dim expression of CD19 and CD45, dim expression of CD117, aberrant expression of CD56 and monotypic cytoplasmic kappa light chain. - No discrete B cell population is identified. - Most of the lymphocytes are CD3-positive T cells including CD4-positive and CD8-positive subsets without diagnostic phenotypic aberrancy. - There is no discrete population of MK30-lrpmilnw blasts identified. Note: Most of the events detected are abnormal plasma cells, as described above. The plasma cell population shows a wide range of forward and side light scatter properties as well as variable expression of CD45 and CD19, making it difficult to isolate the mature B lymphocyte populations in this analysis. A subset of the plasma cells also shows variable expression of CD34, which may represent non-specific binding to plasma cells, making isolation of myeloid precursors a challenge. However, using coexpression of CD34, HLA-DR and CD117 as markers of normal myeloid precursors, the number of VP91-gusmqexi blasts is less than 0.1% in this specimen. Correlation with morphologic and immunohistochemical findings in the accompanying bone marrow biopsy and aspirate specimen is recommended. Please note that myeloid disorders cannot be reliably excluded by flow cytometry. SPECIMEN: Bone marrow ([id number]) VIABILITY: 91.9% TOTAL CELL YIELD: 19.3x106/mL IMMUNOPHENOTYPIC FINDINGS: Lymphocytes are 4.2% of total. - T cells are 3.9% of total (92.7% of cells in lymphocyte gate) with no aberrant phenotype, CD4:CD8= 1.0. - The B cells cannot be definitively characterized (cannot be definitively isolated from plasma cells for analysis). - Plasma cells are 86.3 of total. The plasma cells express CD38 and CD138 with absent organ expression of CD19 and CD45. The plasma cells show aberrant expression of CD56, dim expression of CD117, and monotypic cytoplasmic kappa light chain. - Granulocytes are 7.7% of total and show generally worship pastor immunophenotypic maturation. - A distinct population of monocytes is not identified. - A distinct population of UM87-cvhgfnud myeloid blasts is not identified. (Less than 0.1% of events show features characteristic of blasts including coexpression of CD34, CD117 and HLA-DR.) Antibodies (28 markers): CD2, CD3, CD4, CD5, CD7, CD8, CD10, CD11b, CD13, CD14, CD15, CD16, CD19, CD20, CD33, CD34, CD38, CD45, CD56, CD64, CD117, CD123, CD138, CD200, HLA-DR, Success, Lambda, TCR??. 08/19/2024 4:[address] [facility] Disclaimer This test was developed and its performance characteristics determined by [facility]. It has not been cleared or approved by U.S. Food and Drug Administration. The FDA does not require this test to go through premarket FDA review. This test is used for clinical purposes. It should not be regarded as investigational or for research. This laboratory is certified under Clinical Laboratory Improvement Amendments of 1988 (CLIA) as qualified to perform high complexity clinical laboratory testing. 08/19/2024 4:[address] [facility] Bone Marrow Specimen from bone marrow obtained by aspiration / Unknown 08/17/2024 8:59 AM EDT 08/17/2024 12:07 PM EDT us Teagan GOLDSMITH LAB BLOOD ORDERABLES Final Result [facility] [address] [place] [address], * Bone marrow exam (08/17/2024 8:59 AM EDT) FISH Analysis Report, Addendum This case was sent to [facility], [address] [place], [place], (CLIA #[id number]) for Plasma Cell Myeloma Fish studies. Their diagnosis is as follows: FISH Analysis Plasma Cell Myeloma Prognostic Panel Results: Abnormal Interpretation: Interp Signal Abn Iden % Cutoff Pattern 13q-/-13 Not Detected 2R2G None - N/A 1p32/1q21 Not Detected 2R2G None - N/A p53 (17p13.1)/ NF1 (17q11) Not Detected 2R2G None - N/A CCND1(BCL1)/IgH t(11;14) Detected 1R1G2F t(11;14) 7.0% 3.0% 2R1G1F IGH::CCND1 77.0% 3.0% gene fusion FGFR3/IgH t(4;14) Not Detected 2R3G IgH rearrange- 14.0% 10.0% (Atypical) ment (not to FGFR3) or trisomy 14 IgH/MAF t(14;16) Not Detected 2R3G IgH rearrange- 12.0% 10.0% (Atypical) ment (not to MAF) or trisomy 14 IgH/MAFB t(14;20) Not Detected 2R3G IgH rearrange- (Atypical)ment (not to MAFB) or trisomy 141 2.0% 10.0% IGH::CCND1 rearrangement is considered standard risk in plasma cell myeloma in current NCCN and mSMART 4.0 guidelines. The signal pattern(s) observed with the concurrent IGH probe sets is consistent with the rearrangement observed. Electronic Signature Piotr Blackburn MD, Senior Hematopathologist, Surgical Pathologist (See scanned copy for full report) 5 2:01 PM EDT [facility] Addendum electronically signed by Donald Aparicio MD on 08/26/2024 at 4:22 PM Addendum 2 This case was sent t o [facility], [address] [place], [place], (CLIA #[id number]) for Oncology Chromosome Analysis studies. Their diagnosis is as follows: Cytogenetics Oncology Chromosome Analysis Karyotype: 46,XX[10] Interpretation: NORMAL KARYOTYPE Cytogenetic analysis shows a female karyotype in all cells analyzed. PLEASE NOTE: Due to poor mitotic index, only ten metaphase cells are available for analysis. This is less than our standard of twenty cells and therefore represents an incomplete study and a disease-associated change cannot be ruled out. Test Detail: Metaphases Counted: 10 Metaphases Analyzed: 10 Metaphases Karyotyped: 2 Culture Type: 48EB, 72IL4 Banding Technique: GTG Banding Resolution: 400 Electronic Signature Preston Dunn MD, ABMGG Electronic Signature Odilon Yost M.D., Pathologist Report Date: 08/26/2024 11:59:10 AM ET (Full report on file) 5 2:01 PM EDT [facility] Addendum electronically signed by Donald Aparicio MD on 08/28/2024 at 2:01 PM Final Diagnosis Bone Marrow, aspiration, core biopsy, and clot: - Involvement by a plasma cell neoplasm (91.5% plasma cells in a 400-cell aspirate differential, greater than 90% plasma cells on CD138 immunohistochemical evaluation of the bone marrow clot preparation and kappa light chain restriction with aberrant expression of CD56 by flow cytometric evaluation), best classified as plasma cell myeloma/multiple myeloma. - Cellular bone marrow with a predominance of plasma cells (91.5% in a 400-cell aspirate differential), markedly reduced myeloid and erythroid precursors and less than 1% blasts. Note: This is a variably cellular bone marrow with scant trilineage hematopoiesis and extensive infiltration by an abnormal plasma cell population. Flow cytometry shows that the plasma cells express CD38, CD138, CD56, CD117 (weak), and monotypic cytoplasmic kappa light chain. Reticulin staining shows a mild increase in reticulin-stained fibers (MF-1). In the clinical setting of a markedly elevated serum kappa:lambda light chain ratio and and multiple lytic lesions in the spine (See prior biopsy report, [id number].), the overall findings are consistent with a diagnosis of plasma cell myeloma/multiple myeloma. Karyotype and FISH studies (myeloma prognostic panel) are pending, addendum to follow. CBC (07/31/2024): WBC 4.1 k/uL, Hemoglobin 8.7 g/dL, Hematocrit 28.8%, MCV 103.2 fL, RDW 15.4%, Platelets 300 k/uL. Differential: Neutrophils: 54.8%, Lymphs: 40.5%, Monos: 2.4%, Eos: 1.9%, Basos: 0.2%, Immature granulocytes: 0.2%. Bone marrow aspirate smear (Colon stain): Specimen quality: Adequate for evaluation (scattered cellular marrow particles are present). Myeloid:Erythroid ratio: 2 few myeloid and erythroid precursors to calculate. Myeloid maturation: Granulocytes are rare. Erythroid maturation: Erythroid precursors are rare. Megakaryocyte number and morphology: Rare morphologically unremarkable megakaryocytes are present. Iron stain: Storage iron is absent (0+/6). Although pathologic ring sideroblasts are not identified, the number of nucleated erythroid precursors present for evaluation is low. Other findings: The aspirate smear show predominantly sheets of small plasma cells with rare residual hematopoietic elements. 400 cell Differential count of aspirate: 0.0% Blasts 0.0% Promyelocytes 0.0% Myelocytes/metamyeloc ytes 0.0% Neutrophils/bands 0.0% Monocytes 0.0% Eosinophils 0.0% Basophils 7.0% Lymphocytes 91.5% Plasma cells 1.5% Erythroid precursors Microscopic finding of bone marrow biopsy and clot (H and E, PAS): Specimen quality: Core: Suboptimal (small and extensively fragmented). Clot: Adequate for evaluation (abundant cellular marrow particles are present). Cellularity: Bone marrow cellularity is highly variable with some marrow particles showing approximately 90% cellularity and others showing 10-20% cellularity. Myeloid maturation: Rare myeloid precursors are present. Erythroid maturation: Rare erythroid precursors are noted. Megakaryocyte number and maturation: Occasional megakaryocytes are present. Plasma cells: Sheets of plasma cells are identified, comprising the large majority of the marrow cellularity. Lymphocytes: Discrete lymphoid aggregates are not identified. Reticulin stain: Mild increase in reticulin stained fibers (MF-1). Other findings: PAS Stain highlights megakaryocytes. Immunohistochemistry performed on the clot preparation shows the following: CD34: Endothelial cells are immunoreactive; no discrete population of immature mononuclear cells is highlighted. CD138: Vast majority of cells immunoreactive (greater than 90%). PAX5: No definitive PAX5 expression is identified. Interpretation: The large majority of cells in the clot preparation are ES431-uhnlqoqo plasma cells. There is no definite population of AK11-vpkadonw blasts and no definite population of PAX5-positive B cells identified. The immunohistochemical results suggest that the expression of CD34 detected by flow cytometry may be an artifact of processing. Flow Cytometry Bone marrow, Flow cytometry: - Most of the events are plasma cells with bright expression of CD38 and CD138 along with absent of dim expression of CD19 and CD45, dim expression of CD117, aberrant expression of CD56 and monotypic cytoplasmic kappa light chain. - No discrete B cell population is identified. - Most of the lymphocytes are CD3-positive T cells including CD4-positive and CD8-positive subsets without diagnostic phenotypic aberrancy. - There is no discrete population of BF60-peslthbh blasts identified. Note: Most of the events detected are abnormal plasma cells, as described above. The plasma cell population shows a wide range of forward and side light scatter properties as well as variable expression of CD45 and CD19, making it difficult to isolate the mature B lymphocyte populations in this analysis. A subset of the plasma cells also shows variable expression of CD34, which may represent non-specific binding to plasma cells, making isolation of myeloid precursors a challenge. However, using coexpression of CD34, HLA-DR and CD117 as markers of normal myeloid precursors, the number of IZ37-qynadmyb blasts is less than 0.1% in this specimen. Please note that myeloid disorders cannot be reliably excluded by flow cytometry. Additional Testing (Addendum to follow): Conventional karyotype FISH (Myeloma prognostic panel). All special stains were performed with appropriate controls. 5 2:01 PM EDT [facility] Gross Description A. Bone Marrow Aspirate, : Labeled bone marrow aspirate smears . Eleven slides are prepared. One slide subsequently is stained for iron. Two slides are stained with Colon's giemsa. Approximately 3 ml of bone marrow aspirate is received in a purple top tube and submitted to [facility], flow cytometry lab, [place], [place] for flow cytometric studies. Additionally, 2.5ml of bone marrow aspirate is received in a purple top tube and approximately 4ml of bone marrow aspirate is received in two green top tubes and submitted in to [facility], [place], [place], for cytogenetic studies. B. Bone Marrow Biopsy, : Labeled bone marrow . Received in two containers; are three hard to brittle maldonado-red thin bone cores ranging from 0.15 cm in greatest diameter to 0.55 x <0.1 cm and a 0.4 x 0.2 x 0.1 cm aggregate of red grumous tissue/blood clot. Some of the squamous material from a the purple top tube is additionally added to the clot. The specimen is wrapped in paper and submitted in toto into cassettes, x2. 1-bone cores, three pieces, following decalcification in Immunocal 2-clot, multiple pieces TS 5 2:01 PM EDT [facility] Disclaimer Unless otherwise specified, all tissue is 10% NB formalin fixed and paraffin embedded. NOTE: The immunohistochemical tests and in situ hybridization tests were developed and their performance characteristics were determined by [facility]. They have not been cleared or approved by the U.S. Food and Drug Administration. The FDA has determined that such clearance or approval is not necessary. These tests are used for clinical purposes. They should not be regarded as investigational or for research. This laboratory is certified under the Clinical Laboratory Improvement Amendments of 1988 (CLIA) as qualified to perform high complexity clinical laboratory testing. (controls appropriate) 5 2:01 PM T [facility] Bone Marrow Specimen from bone marrow obtained by aspiration / Unknown 08/17/2024 8:59 AM EDT 08/17/2024 9:36 AM EDT Bone marrow specimen (specimen) Specimen from bone marrow obtained by biopsy / Unknown 08/17/2024 9:00 AM EDT 08/17/2024 9:36 AM EDT us Teagan GOLDSMITH LAB PATHOLOGY ORDERABLES Ed ited Result - Final Performing Organization Address [facility]/ZIP Co de Phone Number [facility] [address] [place] [address], [place] [phone] * Prothrombin time with INR (08/07/2024 12:35 PM EST) [facility] Protime 11.5 10.6 - 13.9 sec LAB COAGULATION METHOD 08/07/2024 2:35 PM EST [facility] INR 0.9 LAB COAGULATION METHOD 08/07/2024 2:35 PM EST [facility] Blood Venous blood specimen / Unknown Venipuncture / Unknown 08/07/2024 12:35 PM EST 08/07/2024 12:35 PM EST us Reyes Emanuel MD LAB BLOOD ORDERABLES Final Resu lt Performing Organization Address [facility] Co de Phone Number [facility] [address] [place] [address], [place] [phone] * (ABNORMAL) Success-lambda free light chains, quantitative (08/03/2024 12:37 PM EST) Success Free Light Chain 317.27(H) 0.33 - 1.94 mg/dL 08/06/2024 11:38 AM EST [facility] Lambda Free Light Chain 0.27(L) 0.57 - 2.63 mg/dL 08/06/2024 11:38 AM EST [facility] Success/Lambda FLC Ratio 1175.07(H) 0.26 - 1.65 08/06/2024 11:38 AM EST [facility] Comment: Test performed at [facility], [address] [place], [place] ??[address] ? [phone] Morena Grant MD, PhD - Carbon Rod Inserter Blood Venous blood specimen / Unknown Venipuncture / Unknown 08/03/2024 12:37 PM EST 08/03/2024 1:16 PM EST Teagan GOLDSMITH LAB BLOOD ORDERABLES Final Result [facility] [address] [place] [address] * Vitamin A (08/03/2024 12:37 PM EST) [facility] Vitamin A 48 38 - 106 ug/dL 08/07/2024 8:27 AM EST [facility] Comment: This test was developed and the performance characteristics determined by [facility]. It has not been cleared or approved by the FDA. The laboratory is regulated under CLIA as qualified to perform high-complexity testing. This test is used for patient testing purposes. It should not be regarded as investigational or for research. Test performed at [facility], [address] [place], [place] ??[address] ? [phone] Morena Grant MD, PhD - Carbon Rod Inserter Blood Venous blood specimen / Unknown Venipuncture / Unknown 08/03/2024 12:37 PM EST 08/03/2024 1:15 PM EST us Teagan GOLDSMITH LAB BLOOD ORDERABLES Final Result [facility] [address] [place] [address] * Vitamin D 25 hydroxy (08/03/2024 12:37 PM EST) Pathologist [facility] Vit D, 25-Hydroxy 65.0 30.0 - 80.0 ng/mL LAB CHEMISTRY METHOD 08/03/2024 1:59 PM EST [facility] Blood Venous blood specimen / Unknown Venipuncture / Unknown 08/03/2024 12:37 PM EST 08/03/2024 1:16 PM EST Teagan GOLDSMITH LAB BLOOD ORDERABLES Final Result Performing Organization Address [facility]/ZIP Co de Phone Number [facility] [address] [place] [address], [place] [phone] * Parathyroid hormone intact (08/03/2024 12:37 PM EST) Pathologist [facility] PTH 25.3 18.5 - 88.0 pcg/mL LAB CHEMISTRY METHOD 08/03/2024 2:17 PM EST [facility] Blood Venous blood specimen / Unknown Venipuncture / Unknown 08/03/2024 12:37 PM EST 08/03/2024 1:16 PM EST Teagan GOLDSMITH LAB BLOOD ORDERABLES Final Result Performing Organization Address [facility]/ZIP Co de Phone Number [facility] [address] [place] [address], [place] [phone] * PATHOLOGIST REVIEW PROTEIN ELECTROPHORESIS (07/31/2024 12:28 PM EST) Pathologist [facility] Pathologist Interpretation Reviewed by Sarah Ramirez MD 08/05/2024 9:43 AM EST [facility] Blood Venous blood specimen / Unknown Venipuncture / Unknown 07/31/2024 12:28 PM EST 07/31/2024 1:41 PM EST Ilan Townsend MD LAB BLOOD ORDERABLES Final R esult Performing Organization Address City/[facility]/ZIP Co de Phone Number [facility] [address] [place] [address], [place] [phone] * (ABNORMAL) Vitamin B12 and folate (07/31/2024 12:28 PM EST) [facility] Vitamin B-12 1,773(H) 250 - 900 pcg/mL LAB CHEMISTRY METHOD 07/31/2024 2:30 PM EST [facility] Folate >20.0(H) 2.8 - 17.0 ng/ml LAB CHEMISTRY METHOD 07/31/2024 2:30 PM EST [facility] Blood Venous blood specimen / Unknown Venipuncture / Unknown 07/31/2024 12:28 PM EST 07/31/2024 1:41 PM EST us Ilan Townsend MD LAB BLOOD ORDERABLES Final R esult Performing Organization Address City/[facility]/ZIP Co de Phone Number [facility] [address] [place] [address], [place] [phone] * Iron and TIBC (07/31/2024 12:28 PM EST) [facility] Iron 60 40 - 150 mcg/dL LAB CHEMISTRY METHOD 07/31/2024 2:30 PM EST [facility] TIBC 327 250 - 450 mcg/dL LAB CHEMISTRY METHOD 07/31/2024 2:30 PM EST [facility] Iron Saturation 18 15 - 50 % LAB CHEMISTRY METHOD 07/31/2024 2:30 PM EST [facility] Blood Venous blood specimen / Unknown Venipuncture / Unknown 07/31/2024 12:28 PM EST 07/31/2024 1:41 PM EST us Ilan Townsend MD LAB BLOOD ORDERABLES Final R esult [facility] [address] [place] [address], [place] [phone] * Sedimentation rate (07/31/2024 12:28 PM EST) [facility] Sed Rate 24 0 - 30 mm/hr LAB HEMETOLOGY METHOD 07/31/2024 1:58 PM [facility] Blood Venous blood specimen / Unknown Venipuncture / Unknown 07/31/2024 12:28 PM EST 07/31/2024 1:40 PM EST Ilan Townsend MD LAB BLOOD ORDERABLES Final R esult [facility] [address] [place] [address], * (ABNORMAL) Protein electrophoresis, serum (07/31/2024 12:28 PM EST) Total Protein 6.5 6.0 - 8.0 g/dL LAB CHEMISTRY METHOD 5 9:43 AM [facility] Albumin, Serum 3.6 2.9 - 4.1 g/dL LAB CHEMISTRY METHOD 5 9:43 AM [facility] Alpha 1 Globulin (g/dL) 0.4 0.1 - 0.5 g/dL LAB CHEMISTRY METHOD 5 9:43 AM [facility] Alpha 2 Globulin (g/dL) 1.3 0.7 - 1.5 g/dL LAB CHEMISTRY METHOD 5 9:43 AM [facility] Beta (g/dL) 0.9 0.7 - 1.5 g/dL LAB CHEMISTRY METHOD 5 9:43 AM [facility] Gamma Globulin (g/dL) 0.3(L) 0.7 - 1.9 g/dL LAB CHEMISTRY METHOD 5 9:43 AM [facility] SPEP Interpretation 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 No M-spike noted LAB CHEMISTRY METHOD 5 9:43 AM [facility] Blood Venous blood specimen / Unknown Venipuncture / Unknown 07/31/2024 12:28 PM EST 07/31/2024 1:41 PM EST us Ilan Townsend MD LAB BLOOD ORDERABLES Final R esult Performing Organization Address City/[facility]/ZIP Co de Phone Number [facility] [address] [place] [address], [place] [phone] * Protein, total (07/31/2024 12:28 PM EST) Pathologist [facility] Total Protein 6.5 6.0 - 8.0 g/dL LAB CHEMISTRY METHOD 07/31/2024 2:06 PM EST [facility] Blood Venous blood specimen / Unknown Venipuncture / Unknown 07/31/2024 12:28 PM EST 07/31/2024 1:41 PM EST Ilan Townsend MD LAB BLOOD ORDERABLES Final R esult Performing Organization Address [facility] Co de Phone Number [facility] [address] [place] [address], [place] [phone] * Ferritin (07/31/2024 12:28 PM EST) Pathologist [facility] Ferritin 54 8 - 252 ng/mL LAB CHEMISTRY METHOD 07/31/2024 2:30 PM EST [facility] Blood Venous blood specimen / Unknown Venipuncture / Unknown 07/31/2024 12:28 PM EST 07/31/2024 1:41 PM EST us Ilan Townsend MD LAB BLOOD ORDERABLES Final R esult Performing Organization Address City/[facility]/ZIP Co de Phone Number [facility] [address] [place] [address], [place] [phone] * CEA (07/31/2024 12:28 PM EST) Pathologist [facility] CEA <2.0 0.0 - 5.0 ng/mL LAB CHEMISTRY METHOD 07/31/2024 2:06 PM EST [facility] Blood Venous blood specimen / Unknown Venipuncture / Unknown 07/31/2024 12:28 PM EST 07/31/2024 1:41 PM EST Narrative [facility] - 07/31/2024 2:06 PM EST The Siemens Advia [email or web address].comaur Chemiluminescent Immunoassay is used. Results obtained with different assay methods or kits cannot be used interchangeably. Results cannot be interpreted as absolute evidence of the presence or absence of malignant disease. us Ilan Townsend MD LAB BLOOD ORDERABLES Final R esult Performing Organization Address City/[facility]/ZIP Co de Phone Number [facility] [address] [place] [address], [place] [phone] * (ABNORMAL) Beta 2 microglobulin, serum (07/31/2024 12:28 PM EST) Pathologist [facility] Beta-2 Microglobulin 3.6(H) 0.7 - 1.8 mg/L LAB CHEMISTRY METHOD 07/31/2024 2:30 PM EST [facility] Blood Venous blood specimen / Unknown Venipuncture / Unknown 07/31/2024 12:28 PM EST 07/31/2024 1:41 PM EST Ilan Townsend MD LAB BLOOD ORDERABLES Final R esult [facility] [address] [place] [address], [place] [phone] * XR Chest 2 Views (07/30/2024 3:14 PM EST) Anatomical Region Laterality Modality Body Radiographic Maira ging 07/30/2024 6:37 PM EST Impressions 07/30/2024 6:39 PM EST 1. ??Probable mildly displaced left-sided lower rib fractures. ??If further evaluation is needed, consider rib series. 2. Small effusions. -------- FINAL REPORT -------- Dictated By: Wade Stephenson Dictated Date: 07/30/2024 18:37 ET Assigned Physician: Wade Stephenson Reviewed and Electronically Signed By: Wade Stephenson Signed Date: 07/30/2024 18:39 ET Workstation ID: [id number] Transcribed By: Self Edit Transcribed Date: 07/30/2024 18:37 ET Narrative 07/30/2024 6:39 PM EST HISTORY: dyspnea multiple rib fractures pt likely had 2 additional fx in the past 2 days TECHNIQUE: PA and lateral radiographs of the chest COMPARISON: Chest radiograph from 06/28/2024 FINDINGS: There is a normal cardiomediastinal silhouette. ??Atherosclerosis of the thoracic aorta. ??Blunting of bilateral costophrenic angles suggesting small effusions. ??Right-sided chronic rib fractures are present. ??There may be mildly displaced left-sided lower rib fractures. ??Evidence of prior vertebroplasty. Procedure Note Wade Stephenson MD - 07/30/2024 HISTORY: dyspnea multiple rib fractures pt likely had 2 additional fx inthe past 2 days TECHNIQUE: PA and lateral radiographs of the chest COMPARISON: Chest radiograph from 06/28/2024 FINDINGS: There is a normal cardiomediastinal silhouette. Atherosclerosis of thethoracic aorta. Blunting of bilateral costophrenic angles suggestingsmall effusions. Right-sided chronic rib fractures are present. Theremay be mildly displaced left-sided lower rib fractures. Evidence of priorvertebroplasty. IMPRESSION: 1. Probable mildly displaced left-sided lower rib fractures. If furtherevaluation is needed, consider rib series. 2. Small effusions. -------- FINAL REPORT -------- Dictated By: Wade Stephenson Dictated Date: 07/30/2024 18:37 ET Assigned Physician: Wade Stephenson Reviewed and Electronically Signed By: Wade Stephenson Signed Date: 07/30/2024 18:39 ET Workstation ID: [id number] Transcribed By: Self Edit Transcribed Date: 07/30/2024 18:37 ET us Reyes Emanuel MD IMG XR PROCEDURES Final Result * XR Scapula bilat (07/29/2024 2:01 PM EST) Anatomical Region Laterality Modality Body, Scapula Bilateral Radiographic Maira ging 07/29/2024 9:55 PM EST Impressions 07/30/2024 2:14 PM EST Numerous lytic bone lesions with the differential including multiple myeloma and metastatic disease. ??Bilateral rotator cuff calcific tendinopathy. POS - [id number] -------- FINAL REPORT -------- Dictated By: Jadyn Walker Dictated Date: 07/29/2024 21:55 ET Assigned Physician: Jadyn Walker Reviewed and Electronically Signed By: Jadyn Walker Signed Date: 07/30/2024 14:14 ET Workstation ID: [id number] Transcribed By: Self Edit Transcribed Date: 07/29/2024 22:23 ET Narrative 07/30/2024 2:14 PM EST EXAM: Bilateral scapula x-ray HISTORY: Bilateral shoulder pain. ??Shoulder blade pain. COMPARISON: None FINDINGS: 2 views of bilateral scapula performed. Bones are osteopenic. ??Numerous small lytic lesions in the humerus bilaterally. ??Probable lytic lesions in the clavicles and bilateral scapula. ??Bone marrow is heterogeneous involving the ribs. ??Bilateral rib fractures in various stages of healing as on the previous chest radiography exam from 06/18/2024. ??Kyphoplasty change in T10 and partially imaged in L2. ??No acute fracture involving the bilateral scapula. ??Soft tissue calcifications adjacent to the lateral humeral heads from calcific tendinopathy. Procedure Note Jadyn Walker MD - 07/30/2024 EXAM: Bilateral scapula x-ray HISTORY: Bilateral shoulder pain. Shoulder blade pain. COMPARISON: None FINDINGS: 2 views of bilateral scapula performed. Bones are osteopenic. Numerous small lytic lesions in the humerusbilaterally. Probable lytic lesions in the clavicles and bilateralscapula. Bone marrow is heterogeneous involving the ribs. Bilateral ribfractures in various stages of healing as on the previous chestradiography exam from 06/18/2024. Kyphoplasty change in T10 and partiallyimaged in L2. No acute fracture involving the bilateral scapula. Softtissue calcifications adjacent to the lateral humeral heads from calcifictendinopathy. IMPRESSION: Numerous lytic bone lesions with the differential including multiplemyeloma and metastatic disease. Bilateral rotator cuff calcifictendinopathy. POS - [id number] -------- FINAL REPORT -------- Dictated By: Jadyn Walker Dictated Date: 07/29/2024 21:55 ET Assigned Physician: Jadyn Walker Reviewed and Electronically Signed By: Jadyn Walker Signed Date: 07/30/2024 14:14 ET Workstation ID: [id number] Transcribed By: Self Edit Transcribed Date: 07/29/2024 22:23 ET us Reyes Emanuel MD IMG XR PROCEDURES Final Result * XR Lumbar Spine 2-3 Views (07/27/2024 1:40 PM EST) Anatomical Region Laterality Modality Spine, L-spine Radio Fluoroscop y 07/28/2024 7:44 AM EST Narrative 07/28/2024 7:46 AM EST Fluoroscopic spot radiographs obtained during thoracolumbar spine percutaneous augmentation are submitted. No radiologist consultation was requested or provided during this procedure and there is no radiologist professional charge. This report is generated for documentation purposes only. The dose-area product for this procedure was 5.4939 Gy*cm2. PQRI CPT II G9500 -------- FINAL REPORT -------- Dictated By: Jacob Holcomb Dictated Date: 07/28/2024 07:44 ET Assigned Physician: Jacob Holcomb Reviewed and Electronically Signed By: Jacob Holcomb Signed Date: 07/28/2024 07:46 ET Workstation ID: [id number] Transcribed By: Self Edit Transcribed Date: 07/28/2024 07:44 ET Procedure Note Jacob Holcomb MD - 07/28/2024 Fluoroscopic spot radiographs obtained during thoracolumbar spinepercutaneous augmentation are submitted. No radiologist consultation wasrequested or provided during this procedure and there is no radiologistprofessional charge. This report is generated for documentation purposesonly. The dose-area product for this procedure was 5.4939 Gy*cm2. PQRI CPT II G9500 -------- FINAL REPORT -------- Dictated By: Jacob Holcomb Dictated Date: 07/28/2024 07:44 ET Assigned Physician: Jacob Holcomb Reviewed and Electronically Signed By: Jacob Holcomb Signed Date: 07/28/2024 07:46 ET Workstation ID: [id number] Transcribed By: Self Edit Transcribed Date: 07/28/2024 07:44 ET us Teagan Cameron MD IMG XR PROCEDURES Final Result * Tissue exam (07/27/2024 12:40 PM EST) Final Diagnosis A. Bone, T10 thoracic, biopsy: - Involvement by a plasma cell neoplasm, favor classification as multiple myeloma/plasma cell myeloma. (See also part C, below.) - Immunohistochemical studies were performed and the results are as follows: CD3: Subset of small lymphocytes immunoreactive. CD20: Subset of cells immunoreactive. CD138: Large majority of cells are immunoreactive. MUM1: Large majority of cells immunoreactive. Interpretation: The aggregates and sheets of cells seen in the marrow space are plasma cells with expression of CD138 and MUM1. There are few admixed B cells and T cells. B. Bone, L2 lumbar, biopsy: - Scant crushed bony tissue. C. Bone, L3 lumbar, biopsy: - Involvement by plasma cell neoplasm, favor classification as multiple myeloma/plasma cell myeloma. (See note.) - Immunohistochemical studies were performed and the results are as follows: Cytokeratin BRITTON: Negative. CD3: Subset of cells immunoreactive. CD20: Subset of cells immunoreactive (variable). CD138: Large majority of cells immunoreactive. MUM1: Large majority of cells immunoreactive. Success light chain: Virtually all plasma cells are immunoreactive. PAX5: Negative in cells of interest. CD56: Plasma cells are immunoreactive.. Cyclin D1: Cells of interest immunoreactive. Interpretation: Expression of MUM1 and CD138 with aberrant expression of CD56 and cyclin D1 supports the diagnosis of a plasma cell neoplasm. Although there is some expression of CD20 in the neoplastic cells, tthe absence of PAX5 expression argues against a diagnosis of a B cell lymphoproliferative disorder with plasma cell differentiation. Virtually all of the plasma cells appear to express kappa light chain, consistent with monotypic plasma cells. Attempts were made to assess for lambda light chain expression, but were unsuccessful due to technical issues. Note: The combined morphologic and immunophenotypic finding support a diagnosis of a plasma cell neoplasm. The multifocal nature (involving both the T10 and L3 vertebrae argues against classification as a solitary plasmacytoma and favors a classification as plasma cell myeloma/multiple myeloma. However, correlation with clinical, imaging and other laboratory findings is recommended for definitive classification of plasma cell neoplasms. 5 12:29 PM [facility] Comment Tunnel Form Placing Supervisor slide(s) from this case have been presented at Anatomic Pathology Intradepartmental Review Conference on 07/29/24. Donald Aparicio MD notified Dr. Teagan Cameron on 07/30/24 at 03/03/2025 via secure text. 5 12:29 PM [facility] Gross Description A. Spine, Thoracic, T10 BONE BIOPSY: Labeled T10 bone, thoracic . Received in formalin with a Telfa pad is a 0.3 cm aggregate of irregular maldonado-pink possible bone fragments and soft tissue which is submitted in toto in a mesh bag in one cassette following brief decalcification in Immunocal, multiple pieces, x 2. B. Spine, Lumbar, L2 bone biopsy: Labeled L2 bone, lumbar . Received in formalin with a Telfa pad is a 0.1 cm irregular pink-red soft tissue fragment which is submitted in toto in a mesh bag in one cassette (not requiring decalcification), one piece, x 2. C. Spine, Lumbar, L3 bone biopsy: Labeled L3 bone, lumbar . Received in formalin is a 0.2 cm irregular pink-white possible soft tissue fragment which is submitted in toto in a mesh bag in one cassette (not requiring decalcification), one piece, x 2. MICHELA 5 12:29 PM [facility] Disclaimer NOTE: The immunohistochemical tests and in situ hybridization tests were developed and their performance characteristics were determined by [facility]. They have not been cleared or approved by the U.S. Food and Drug Administration. The FDA has determined that such clearance or approval is not necessary. These tests are used for clinical purposes. They should not be regarded as investigational or for research. This laboratory is certified under the Clinical Laboratory Improvement Amendments of 1988 (CLIA) as qualified to perform high complexity clinical laboratory testing. (controls appropriate) Unless otherwise specified, all tissue is 10% NB formalin fixed and paraffin embedded. 12:29 PM EST [facility] Tissue Thoracic spine structure / Unknown 07/27/2024 12:40 PM EST 07/27/2024 2:42 PM EST Tissue specimen (specimen) Lumbar spine structure / Unknown 07/27/2024 12:51 PM EST 07/27/2024 2:42 PM EST Tissue specimen (specimen) Lumbar spine structure / Unknown 07/27/2024 1:03 PM EST 07/27/2024 2:42 PM EST us Teagan Cameron MD LAB PATHOLOGY ORDERABLES Final Result [facility] [address] [place] [address], * TH AN ENDOTRACHEAL(NO CHARGE) (07/27/2024 12:12 PM EST) Linh Kiran CRNA - 07/27/2024 12:12 PM EST Linh Montenegro CRNA ? 07/27/2024 12:12 PM General Information and Staff Patient location during procedure: OR Resident/CUP SETTER LOCKSTITCH: Linh Montenegro CRNA Performed: resident/CUP SETTER LOCKSTITCH/CAA Performed by: Linh Montenegro CRNA Authorized by: Piotr Shahid, DO ?? Intubation Additional Comments Elective GS intubation 2/2 severe osteoporosis Airway not difficult Urgency: elective Final Airway Details Successful airway: ETT Successful intubation technique: video laryngoscopy Facilitating devices/methods: intubating stylet Blade: Liyah Blade size: #3 ETT size (mm): 7.0 Placement verified by: chest auscultation and capnometry Measured from: lips ETT to lips (cm): 21 Number of attempts at approach: 1Final airway type: endotracheal airway Indications and Patient Condition Indications for airway management: anesthesia and airway protection Spontaneous ventilation: present Sedation level: Yes Preoxygenated: yes Soft Tissue Damage: No Dentition Unchanged: Yes Patient position: sniffing MILS maintained throughout Mask difficulty assessment: 1 - vent by mask us Piotr Shahid DO ANESTHESIA ORDERABLES Final Res ult * ECG 12 lead - Procedural (No Charge) (07/27/2024 10:08 AM EST) Ventricular Rate ECG 74 BPM GEMUSE Atrial Rate 74 BPM GEMUSE P-R Interval 122 ms GEMUSE QRS Duration 106 ms GEMUSE Q-T Interval 380 ms GEMUSE QTc 421 ms GEMUSE P Wave [place] 18 degrees GEMUSE R [place] -20 degrees GEMUSE T [place] 30 degrees GEMUSE ECG Interpretation Normal sinus rhythm Incomplete right bundle branch block Borderline ECG When compared with ECG of 30-MAY-2023 12:30, No significant change was found Confirmed by Dalton BUSCH JAMES ([id number]) on 07/27/2024 2:18:11 PM GEMUSE 07/27/2024 10:0 8 AM EST 07/27/2024 2:18 PM EST us Teagan Cameron MD ECG ORDERABLES Final Result GEMUSE * DXA BONE DENSITY STUDY 1+ SITS AXIAL SKEL (04/03/2024 11:51 AM EDT) Anatomical Region Laterality Modality Bone Densitometr y 03/31/2024 5:29 PM EDT Narrative 04/06/2024 5:38 PM EDT BONE DENSITY SCAN (DEXA): FINDINGS: Lumbar Spine T-score is -1.0. ?? (SD relative to 20-29 y/o adult) Z-score is 0.7. ??(SD relative to age matched peers) This is considered normal by WHO criteria. Right Hip T-score is -2.1. Z-score is -0.6. This is considered osteopenia by WHO criteria. Comparison exam(s): 04/11/2015 for the lumbar spine. ??17.4% loss of bone mineral density in the lumbar spine which is statistically significant at the 95% confidence level. ??No prior right hip exam for comparison. Lateral survey view of the thoracolumbar spine shows minimal inferior compression deformity of L1. IMPRESSION: IMPRESSION: Osteopenia by WHO criteria. This patient has an 11% risk of major osteoporotic fracture and a 2.6% risk of hip fracture over the next 10 years. (World Health Organization Fracture Risk Assessment) [facility] Department of Internal Medicine recommends using National Osteoporosis Foundation (NOF) guidelines in treatment decisions related to osteoporosis. NOF guidelines suggest considering treatment for postmenopausal women and men aged 50 or older presenting with the following: History of hip or vertebral fracture. T-score = -2.5 (DXA) at the femoral neck, total hip, or spine, after appropriate evaluation to exclude secondary causes. Low bone mass (T-score between -1.0 and -2.5 at the femoral neck or spine) AND a 10-year probability of a hip fracture = 3% OR a 10-year probability of a major osteoporosis-related fracture = 20% based on the [place]-adapted WHO algorithm Please note that all treatment decisions require clinical judgment and consideration of individual patient factors, including patient preferences, co-morbidities, previous drug use, risk factors not captured in the FRAX model (e.g., frailty, falls, vitamin D deficiency, increased bone turnover, interval significant decline in bone density) and possible under- or over-estimation of fracture risk by FRAX. Optional alternative screening schedule based on dio Conrad., [facility] June 28, 2011 for patients with osteopenia (based on hip BMD T-score) is as follows: * ??advanced osteopenia (T scores -2.00 to -2.49), BMD testing every year * ??moderate osteopenia (T scores -1.50 to -1.99), BMD testing every 5 years mild osteopenia or normal BMD (T scores -1.50 and higher), BMD testing every 15 years Procedure Note Jadyn Walker MD - 04/11/2024 BONE DENSITY SCAN (DEXA): FINDINGS: Lumbar Spine T-score is -1.0. (SD relative to 20-29 y/o adult) Z-score is 0.7. (SD relative to age matched peers) This is considered normal by WHO criteria. Right Hip T-score is -2.1. Z-score is -0.6. This is considered osteopenia by WHO criteria. Comparison exam(s): 04/11/2015 for the lumbar spine. 17.4% loss of bonemineral density in the lumbar spine which is statistically significant at the 95% confidencelevel. No prior right hip exam for comparison. Lateral survey view of the thoracolumbar spine shows minimal inferiorcompression deformity of L1. IMPRESSION: IMPRESSION: Osteopenia by WHO criteria. This patient has an 11% risk of majorosteoporotic fracture and a 2.6% risk of hip fracture over the next 10 years. (World HealthOrganization Fracture Risk Assessment) [facility] Department of Internal Medicine recommendsusing National Osteoporosis Foundation (NOF) guidelines in treatment decisions related toosteoporosis. NOF guidelines suggest considering treatment for postmenopausal women and menaged 50 or older presenting with the following: History of hip or vertebral fracture. T-score = -2.5 (DXA) at the femoral neck, total hip, or spine, afterappropriate evaluation to exclude secondary causes. Low bone mass (T-score between -1.0 and -2.5 at the femoral neck or spine)AND a 10-year probability of a hip fracture = 3% OR a 10-year probability of a majorosteoporosis-related fracture = 20% based on the [place]-adapted WHO algorithm Please note that all treatment decisions require clinical judgment andconsideration of individual patient factors, including patient preferences, co- morbidities,previous drug use, risk factors not captured in the FRAX model (e.g., frailty, falls, vitaminD deficiency, increased bone turnover, interval significant decline in bone density) andpossible under- or over-estimation of fracture risk by FRAX. Optional alternative screening schedule based on dio Conrad., NEJMJanuary 2011 for patients with osteopenia (based on hip BMD T-score) is as follows: * advanced osteopenia (T scores -2.00 to -2.49), BMD testing every year * moderate osteopenia (T scores -1.50 to -1.99), BMD testing every 5years mild osteopenia or normal BMD (T scores -1.50 and higher), BMD testingevery 15 years us Reyes Emanuel MD IMG DXA PROCEDURES Final Result * SCREENING MAMMOGRAPHY BI 2-VIEW BREAST INC CAD (03/07/2024 10:13 AM EDT) Anatomical Region Laterality Modality Radiographic Maira ging 02/26/2023 5:23 PM EDT Narrative 03/07/2024 3:47 PM EDT This is a summary report. The complete report is available in the patient's medical record. If you cannot access the medical record, please contact the sending organization for a detailed fax or copy. Full field digital screening tomosynthesis mammography, reviewed with CAD and compared to previous. The breasts are composed of fatty and fibroglandular tissue. ??No suspicious mass, architectural distortion or suspicious calcifications are identified. IMPRESSION: : No mammographic evidence of malignancy. BIRADS 1-Negative; N. Breast density: The breasts have scattered areas of fibroglandular density. 5 year breast cancer risk assessment 1.7 % Lifetime breast cancer risk assessment 7.1 % Breast cancer risk category Low (<15%) Location: [facility], [address] [place] [address], [id number], [phone] Procedure Note Ani Walsh MD - 03/25/2024 This is a summary report. The complete report is available in thepatient's medical record. If you cannot access the medical record, pleasecontact the sending organization for a detailed fax or copy. Full field digital screening tomosynthesis mammography, reviewed with CADand compared to previous. The breasts are composed of fatty andfibroglandular tissue. No suspicious mass, architectural distortion orsuspicious calcifications are identified. IMPRESSION: : No mammographic evidence of malignancy. BIRADS 1-Negative; N. Breast density: The breasts have scattered areas of fibroglandulardensity. 5 year breast cancer risk assessment 1.7 % Lifetime breast cancer risk assessment 7.1 % Breast cancer risk category Low (<15%) Location: [facility], [address] [place] [address], [id number], [phone] Reyes Emanuel MD IMG XR PROCEDURES Final Result * Colonoscopy (12/18/2023) [facility] Colonoscopy No interpreta tion,abstr acted Anatomical Region Laterality Modality Other Historical Provider HEALTH MAINTENANCE Final Result * Cervical Cancer Screening: HPV (05/16/2021) [facility] Cervical Cancer Screening: HPV No interpreta tion,abstr acted, Historical Provider HEALTH MAINTENANCE Final Result * Hepatitis C Screening (07/22/2007) [facility] Hepatitis C Screening Abstracted Historical Provider HEALTH MAINTENANCE Final Result from Last 3 Months or Most Recently Relevant to Health Maintenance Insurance [employer] DOME[employer]IC Advance Directives * Full Code - Confirmed (Latest Code Status on File) Date Activated Date Inactivated Comments 09/15/2024 4:15 PM 09/19/2024 2:53 PM This code sta tus was ascertained in the following way: Code status discussion: discussion with patient To update the patient's code status, place a code status order. Do not modify or discontinue any currently active code status orders. * Full Code - Default Date Activated Date Inactivated Comments 09/15/2024 3:46 PM 09/15/2024 4:15 PM This is order is used when code status has not been discussed with the patient, or code status is otherwise unknown/unconfirmed To update the patient's code status, place a code status order. Do not modify or discontinue any currently active code status orders. * Full Code - Default Date Activated Date Inactivated Comments 07/27/2024 9:45 AM 07/27/2024 5:42 PM This is orde r is used when code status has not been discussed with the patient, or code status is otherwise unknown/unconfirmed To update the patient's code status, place a code status order. Do not modify or discontinue any currently active code status orders. * Full Code - Default Date Activated Date Inactivated Comments 07/27/2024 9:45 AM 07/27/2024 9:45 AM This is orde r is used when code status has not been discussed with the patient, or code status is otherwise unknown/unconfirmed To update the patient's code status, place a code status order. Do not modify or discontinue any currently active code status orders. Care Teams Time Buyer Relationship Specialty Start Date End Date Reyes Emanuel MD [address] [place] [id number] PCP - General Internal Medicine 04/22/24
--- OUTSIDE RECORDS SUMMARY | 2024-10-09 01:01 | XMS_ITS | Encounter Summary ---
Author Organization [facility] Address [address] [place] [address] Care Team Providers Care Towel Weaver Name Role Phone Reyes Emanuel MD Primary Care Provider Reason for Visit * Episode Based Medications (Routine) - Pending Review Specialty Diagnoses / Procedures Referred By Judd t Referred To Contact Diagnoses Multiple myeloma not having achieved remission (CMS/HCC V24, CMS/HCC V28) Ilan Townsend MD [address] [place] [address] Phone: tel: fax: [facility] [address] [place] [phone] Phone: tel: fax: Referral ID Status Reason Start Date Expiration Date V isits Requested Visits Authorized [id number] Pending Review 08/21/2024 08/21/202507 05 Encounter Details Date Type Department Care Team (Latest Contact Info) Description 10/05/2024 11:30 AM EDT Hospital Encounter [facility] [address] [place] [phone] Ilan Townsend MD [address] [place] [address] Multiple myeloma not having achieved remission (CMS/HCC V24, CMS/HCC V28) (Primary Dx) Social History Tobacco Use Types Packs/Day Years Used Date Smoking Tobacco: Every Day Cigarettes Smokeless Tobacco: Never Comments:2 cigs a day Alcohol Use Standard [...] Record ed Within the last 3 months, ho w many times did you visit the emergency [...] for your loved ones. For example, child care director or elderly care for an older adult? [...] Orientation Straight 07/27/2024 9: 41 AM EST documented as of this encounter Last Filed Vital Signs Vital Sign Reading Time Taken Comments Blood Pressure 144/73 10/05/2024 11:40 AM EDT Pulse 66 10/05/2024 11:40 AM EDT Temperature 36.3 ??C (97.3 ??F) 10/05/2024 11:40 AM E DT Respiratory Rate 18 10/05/2024 11:40 AM EDT Oxygen Saturation 100% 10/05/2024 11:40 AM EDT Inhaled Oxygen Concentration - - Weight 66.9 kg (147 lb 7.8 oz) 10/05/2024 11:40 AM EDT Height - - Body Mass Index 21.78 09/18/2024 2:12 PM EDT documented in this encounter Progress Notes * Diane Tellez RN - 10/05/2024 11:30 AM EDT Patient arrives ambulatory for her tx. Patient tells this RN how when she got admitted she was admit for 1 week. She states I was septic and had pneumonia Patient states she is feeling s o much better She has some pain, chest wall pain but rates it 3/10. Encouraged patient to take deep breathes to prevent pneumonia and she states she is doing that hourly. Patient denies n/v/d. She is upset she has gained a few pounds but we talked about how that is a healthy 3lb weight gain. Patient aware that the lab did not draw appropriate labs for todays tx. Patient states I knew it!She states she got her labs done at [facility] and states they only rima one tube and whenshoaib inquired stating she needed it for chemo the territory account manager told the patient that the order is in wrong The orders are in correctly and I apologized to patient but she is ok with getting redrawn from right ac. Labs sent stat. Stephanie up to sit with patient and talk to her. Patients hgb has dropped. She states she is no more short of breathe or fatigued than usual. Md contacted who would like patient to get 1 unit prbcs. Patient wants to come tomorrow. Hold tube drawn and sent in preparation for transfusion tomorrow. Patient aware and good with the plan. Delay in getting cmp as lab states there machine went down patient also updated on delay. Patients labs resulted after she left. Md aware of low potassium. Please given potassium 20meq po on 10/06/24 with her blood transfusion. Patient given darzalex in left lower abdominal quadrant and velcade in right lower. Patient left stable and ambulatory and will return tomorrow with her type and screen band. Instructed to call with any questions or concerns. documented in this encounter Plan of Treatment Upcoming Encounters Date Type Department Care Team (Late st Contact Info) Description 10/12/2024 11:30 AM EDT Appointment [facility] [address] [place] [phone] 10/15/2024 11:30 AM EDT Appointment [facility] [address] [place] [phone] 10/19/2024 11:30 AM EDT Appointment [facility] [address] [place] [phone] 10/28/2024 11:30 AM EDT Office Visit [facility] Hematology Oncology [address] [place] [phone] Ilan Townsend MD [address] [place] [address] 03/13/2025 11:00 AM EDT Appointment Radiology Department - [place] [address] [place] [phone] Scheduled Orders Name Type Priority Associated Diagnoses Orde r Schedule CBC and differential Lab Routine Multiple myeloma not having achieved remission (CMS/HCC V24, CMS/HCC V28) 1 Occurrences starting 10/05/2024 until 10/05/2025 Comprehensive metabolic panel Lab Routine Multiple myeloma not having achieved remission (CMS/HCC V24, CMS/HCC V28) 1 Occurrences starting 10/05/2024 until 10/05/2025 documented as of this encounter Procedures Procedure Name Priority Date/Time Associated Diagnosis Comments ANTIBODY IDENTIFICATION Routine 10/06/19 1:15 PM EDT Multiple myeloma not having [...] having achieved remission (CMS/HCC V24, CMS/HCC V28) documented in this encounter Results * Antibody identification (10/05/2024 1:15 PM EDT) Pathologist [facility] Antibody Identification Antibody Other. See comments. 10/06/2024 11:48 AM EDT [facility] Comment:Patient on Daratumum ab. All clinically significant antibodies except Estelline have been ruled out. Blood Venous blood specimen / Unknown Venipuncture / Unknown 10/05/2024 1:15 PM EDT 10/05/2024 1:51 PM EDT Ilan Townsend MD LAB BLOOD BANK TEST ORDERABL ES Final Result Performing Organization Address City/[facility]/ZIP Co de Phone Number [facility] [address] [place] [address], [place] [phone] * Type and screen (10/05/2024 1:15 PM EDT) ABO Group O 10/06/2024 11:45 AM EDT [facility] Rh Type Positive 10/06/2024 11:45 AM EDT [facility] Antibody Screen Positive 10/06/2024 11:45 AM EDT [facility] Blood Venous blood specimen / Unknown Venipuncture / Unknown 10/05/2024 1:15 PM EDT 10/05/2024 1:51 PM EDT Ilan Townsend MD LAB BLOOD BANK TEST ORDERABL ES Final Result Performing Organization Address City/[facility]/ZIP Co de Phone Number [facility] [address] [place] [address], [place] [phone] * (ABNORMAL) CBC auto differential (10/05/2024 11:55 AM EDT) WBC 2.8(L) 4.8 - 10.8 K/mcL LAB HEMETOLOGY METHOD 10/05/2024 12:27 PM EDT [facility] RBC 2.60(L) 3.80 - 4.80 M/mcL LAB HEMETOLOGY METHOD 10/05/2024 12:27 PM EDT [facility] Hemoglobin 7.7(L) 11.5 - 16.0 g/dL LAB HEMETOLOGY METHOD 10/05/2024 12:27 PM EDT [facility] Hematocrit 23.9(L) 35.0 - 47.0 % LAB HEMETOLOGY METHOD 10/05[facility]24 [facility] MCV 93.0 79.0 - 98.0 FL LAB HEMETOLOGY METHOD 10/05/2024 12:[facility] MCH 30.0 27.0 - 32.0 pcg LAB HEMETOLOGY METHOD 10/05/2024 12:27 PM [facility] MCHC 32.2 32.0 - 37.0 g/dL LAB HEMETOLOGY METHOD 10/05/2024 12:27 PM [facility] RDW 15.1(H) 11.0 - 15.0 % LAB HEMETOLOGY METHOD 10/05/2024 12:27 PM [facility] Platelets 176 130 - 400 K/mcL LAB HEMETOLOGY METHOD 10/05/2024 12:27 PM [facility] MPV 10.1 7.0 - 11.0 FL LAB HEMETOLOGY METHOD 10/05/2024 12:27 PM [facility] NRBC 0.0 <1.0 % LAB HEMETOLOGY METHOD 10/05/2024 12:27 PM [facility] NRBC Absolute 0.00 <0.10 K/mcL LAB HEMETOLOGY METHOD 10/05/2024 12:27 PM [facility] Neutrophils Relative 54.5 % LAB HEMETOLOGY METHOD 10/05/2024 12:27 PM [facility] Lymphocytes Relative 31.6 % LAB HEMETOLOGY METHOD 10/05/2024 12:27 PM [facility] Monocytes Relative 10.2 % LAB HEMETOLOGY METHOD 10/05/2024 12:27 PM [facility] Eosinophils Relative 1.5 % LAB HEMETOLOGY METHOD 10/05/2024 12:27 PM [facility] Basophils Relative 1.8 % LAB HEMETOLOGY METHOD 10/05/2024 12:27 PM EDT [facility] Immature Granulocytes Relative 0.4 % LAB HEMETOLOGY METHOD 10/05/2024 12:27 PM EDT [facility] Neutrophils Absolute 1.50 1.50 - 7.00 K/mcL LAB HEMETOLOGY METHOD 10/05/2024 12:27 PM EDT [facility] Lymphocytes Absolute 0.87(L) 1.00 - 5.00 K/mcL LAB HEMETOLOGY METHOD 10/05/2024 12:27 PM EDT [facility] Monocytes Absolute 0.28 0.20 - 1.00 K/mcL LAB HEMETOLOGY METHOD 10/05/2024 12:27 PM EDT [facility] Eosinophils Absolute 0.04 0.00 - 0.50 K/mcL LAB HEMETOLOGY METHOD 10/05/2024 12:27 PM EDT [facility] Basophils Absolute 0.05 0.00 - 0.20 K/mcL LAB HEMETOLOGY METHOD 10/05/2024 12:27 PM EDT [facility] Immature Granulocytes Absolute 0.01 0.00 - 0.03 K/mcL LAB HEMETOLOGY METHOD 10/05/2024 12:27 PM EDT [facility] Blood Venous blood specimen / Unknown Venipuncture / Unknown 10/05/2024 11:55 AM EDT 10/05/2024 12:09 PM EDT us Ilan Townsend MD LAB BLOOD ORDERABLES Final R esult [facility] [address] [place] [address], * (ABNORMAL) Comprehensive metabolic panel (10/05/2024 11:55 AM EDT) Sodium 140 133 - 145 mmol/L LAB CHEMISTRY METHOD 10/05/2024 1:43 PM [facility] Potassium 3.2(L) 3.5 - 5.5 mmol/L LAB CHEMISTRY METHOD 10/05/2024 1:43 PM [facility] Chloride 106 96 - 110 mmol/L LAB CHEMISTRY METHOD 10/05/2024 1:43 PM [facility] CO2 25 21 - 32 mmol/L LAB CHEMISTRY METHOD 10/05/2024 1:43 PM [facility] Anion Gap 9 3 - 11 LAB CHEMISTRY METHOD 10/05/2024 1:43 PM [facility] Glucose 94 70 - 100 mg/dL LAB CHEMISTRY METHOD 10/05/2024 1:43 PM [facility] BUN 11 5 - 25 mg/dL LAB CHEMISTRY METHOD 10/05/2024 1:43 PM [facility] Creatinine 1.20(H) 0.50 - 1.10 mg/dL LAB CHEMISTRY METHOD 10/05/2024 1:43 PM [facility] eGFR 51(L) >=60 mL/min/1. 73m2 LAB CHEMISTRY METHOD 10/05/2024 1:43 PM [facility] Comment:Calculation based on the??Chronic Kidney Disease Epidemiology Collaboration (CKD-EPI) equation refit??without adjustment for race. BUN/Creatinine Ratio 9.2 LAB CHEMISTRY METHOD 10/05/2024 1:43 PM [facility] Calcium 8.2(L) 8.5 - 10.5 mg/dL LAB CHEMISTRY METHOD 10/05/2024 1:43 PM [facility] AST (SGOT) 10 10 - 42 unit/L LAB CHEMISTRY METHOD 10/05/2024 1:43 PM [facility] ALT (SGPT) 17 10 - 60 unit/L LAB CHEMISTRY METHOD 10/05/2024 1:43 PM [facility] Alkaline Phosphatase 98 42 - 121 unit/L LAB CHEMISTRY METHOD 10/05/2024 1:43 PM EDT [facility] Total Protein 5.6(L) 6.0 - 8.0 g/dL LAB CHEMISTRY METHOD 10/05/2024 1:43 PM EDT [facility] Albumin 3.1(L) 3.2 - 5.0 g/dL LAB CHEMISTRY METHOD 10/05/2024 1:43 PM EDT [facility] Total Bilirubin 0.4 0.0 - 1.4 mg/dL LAB CHEMISTRY METHOD 10/05/2024 1:43 PM EDT [facility] Blood Venous blood specimen / Unknown Venipuncture / Unknown 10/05/2024 11:55 AM EDT 10/05/2024 12:09 PM EDT us Ilan Townsend MD LAB BLOOD ORDERABLES Final R esult [facility] [address] [place] [address], documented in this encounter Visit Diagnoses Diagnosis Multiple myeloma not having achieved remission ([facility] V24, [facility] V28)- Primary Encounter for screening mammogram for breast cancer documented in this encounter Administered Medications Inactive Administered Medications - up to 3 most recent administrations Medication Order MAR Action Action Date Dose Rate Site acetaminophen (TYLENOL) tablet 650 mg 650 mg, oral, Once, On Sat10/05/24 at 1400, For 1 doseIndications:Multip le myeloma not having achieved remission (CMS/[facility] V24, [facility] V28) Given 10/05/2024 1:49 PM EDT 650 mg bortezomib (VELCADE) chemo injection 2.375 mg 2.375 mg (rounded from 2.366 mg = 1.3 mg/m2 ? 1.82 m2), subcutaneous, Once, On Sat10/05/24 at 1400, For 1 dose, FOR SUBCUTANEOUS INJECTION. Bortezomib is an irritant. HAZARDOUS Drug Precautions - High Risk (Category C/NIOSH Group 1) Antineoplastic: - Double pair of ASTM standard D6978 certified chemotherapy gloves - Chemotherapy gown - Closed-System Transfer Device (CSTD) recommended - Eye protection (goggles or face shield) required only with a potential for facial contact (i.e. concern for spitting or vomiting of the dose during or after administration)Indicat ions:Multiple myeloma not having achieved remission (CMS/HCC V24, CMS/HCC V28) Given 10/05/2024 2:16 PM EDT 2.375 mg Right Lower Abdomen daratumumab-hyaluronid ase-fihj (DARZALEX FASPRO) injection 1,800 mg 1,800 mg, subcutaneous, at 300 mL/hr, Administer over 3 Minutes, Once, On Sat10/05/24 at 1430, For 1 dose, Inject over 3-5 minutes into the subcutaneous tissue of the abdomen.Indications:Mu ltiple myeloma not having achieved remission (CMS/HCC V24, CMS/HCC V28) Given 10/05/2024 2:15 PM EDT 1,800 mg 300 mL/hr Left Lower Abdomen dexAMETHasone (DECADRON) tablet 20 mg 20 mg, oral, Once, On Sat10/05/24 at 1400, For 1 doseIndications:Multip le myeloma not having achieved remission (CMS/HCC V24, CMS/HCC V28) Given 10/05/2024 1:49 PM EDT 20 mg diphenhydrAMINE (BENADRYL) capsule 25 mg 25 mg, oral, Once, On Sat10/05/24 at 1400, For 1 doseIndications:Multip le myeloma not having achieved remission (CMS/HCC V24, CMS/HCC V28) Given 10/05/2024 1:49 PM EDT 25 mg documented in this encounter Care Teams Towel Weaver Relationship Specialty Start Date End Date Reyes Emanuel MD [address] [place] [id number] PCP - General Internal Medicine 04/22/24 documented as of this encounter
--- OUTSIDE RECORDS SUMMARY | 2024-10-09 01:01 | XMS_ITS | Encounter Summary ---
Author Organization [facility] Address [address] [place] [address] Care Team Providers Care Gold Marker Name Role Phone Hilda Wilkins MD Unavailable Unavailable Reyes Emanuel MD Primary Care Provider [phone] Reason for Referral * Non CARIN (Routine) - Authorized/Booked Specialty Diagnoses / Procedures Referred By Judd butler Referred To Contact Endocrinology Diagnoses Thyroid nodule Procedures REFERRAL TO ENDOCRINOLOGY Reyes Emanuel MD [address] [place] [address] [facility] [address] Referral ID Status Reason Start Date Expiration Date V isits Requested Visits Authorized [id number] Authorized/B ooked 01/16/2023 01/16/2024 1 1 Encounter Details Date Type Department Care Team Description 01/16/2023 Telephone Adult Medicine [address] [address] Reyes Emanuel MD [address] [place] [address] Social History Tobacco Use Types Packs/Day Years [...] Recorded In the last 10 days, have yo u been in contact with someone who was confirmed or suspected to have Coronavirus/COVID-19? No / Unsure 01/02/2023 1:17 PM EDT documented as of this encounter Plan of Treatment Not on file documented as of this encounter Visit Diagnoses Diagnosis Thyroid nodule- Primary Nontoxic uninodular goiter documented in this encounter Care Teams Gold Marker Relationship Specialty Start Date End Date Reyes Emanuel MD [address] [place] [address] PCP - General Internal Medicine 10/29/22 Hilda Wilkins MD Specialist Infectious Disease 02/01/22 documented as of this encounter
--- OUTSIDE RECORDS SUMMARY | 2024-10-09 01:01 | XMS_ITS | Encounter Summary ---
Author Organization [facility] Address [address] [place] [address] Care Team Providers Care Staff Submarine Warfare Officer Name Role Phone Reyes Emanuel MD Primary Care Provider [phone] Reason for Visit * Episode Based Medications (Routine) - Pending Review Specialty Diagnoses / Procedures Referred By Judd t Referred To Contact Diagnoses Multiple myeloma not having achieved remission (CMS/HCC V24, CMS/HCC V28) Ilan Townsend MD [address] [place] [address] Phone: tel: fax: [facility] [address] [place] [phone] Phone: tel: fax: Referral ID Status Reason Start Date Expiration Date V isits Requested Visits Authorized [id number] Pending Review 08/21/2024 08/21/2025 1 26 Encounter Details Date Type Department Care Team (Latest Contact Info) Description 10/08/2024 11:30 AM EDT Hospital Encounter [facility] Infusion Center [address] [place] [phone] Ilan Townsend MD [address] [place] [address] Multiple myeloma not having achieved remission (CMS/HCC [...] care for your loved ones. For example, early childhood associate teacher or elderly care for an older adult? [...] 10/08/2024 11:51 AM E DT Respiratory Rate - - Oxygen Saturation 100% 10/08/2024 11:51 AM EDT Inhaled Oxygen Concentration - - Weight 67.3 kg (148 lb 6.4 oz) 10/08/2024 11:51 AM EDT Height - - Body Mass Index 21.91 09/18/2024 2:12 PM EDT documented in this encounter Progress Notes * Barbara Barger RN - 10/08/2024 11:30 AM EDT 1135 Patient arrives ambulatory accompanied by her brother for Velcade injection. She reports some rightlower back pain which is not new in nature. She reports taking tylenol for it with little relief, she has a tens unit at home which she will continue using. She reports feeling overall well but she does verbalize some urinary incontinence that has been ongoing for a while now. No burning or urinarysymptoms associated she just notices that when she feels the urge to urinate she has already passedsome urine. Allergies, medications, vitals and weight reviewed. Treatment plan released. Pt has water chairsideand is comfortable. 1251 Injection given into left lower abdomen. Patient tolerated well, band aid applied. 1300 Patient feeling well and has next appointments in place, she will be back to get labs tomorrow and has her appointments next week. Patient and brother ambulated off unit in stable condition. documented in this encounter Plan of Treatment Upcoming Encounters Date Type Department Care Team (Late st Contact Info) Description 10/12/2024 11:30 AM EDT Appointment [facility] [address] [place] [phone] 10/15/2024 11:30 AM EDT Appointment [facility] [address] [place] [phone] 10/19/2024 11:30 AM EDT Appointment [facility] [address] [place] [phone] 10/28/2024 11:30 AM EDT Office Visit [facility] Hematology Oncology [address] [place] [phone] Ilan Townsend MD [address] [place] [address] 03/13/2025 11:00 AM EDT Appointment Radiology Department - [address] [phone] documented as of this encounter Visit Diagnoses Diagnosis Multiple myeloma not having achieved remission ([facility] V24, [facility] V28)- Primary Encounter for screening mammogram for breast cancer documented in this encounter Administered Medications Inactive Administered Medications - up to 3 most recent administrations Medication Order MAR Action Action Date Dose Rate Site bortezomib (VELCADE) chemo injection 2.375 mg 2.375 mg (rounded from 2.366 mg = 1.3 mg/m2 ? 1.82 m2), subcutaneous, Once, On Shelli 10/08/24 at 1215, For 1 dose, FOR SUBCUTANEOUS INJECTION. Bortezomib [...] vomiting of the dose during or after administration)Indicatio ns:Multiple myeloma not having achieved remission (CMS/HCC V24, CMS/HCC V28) Given 10/08/2024 12:51 PM EDT 2.375 mg Left Lower Abdomen documented in this encounter Orders Medications Ordered That Torin ht Not Have Been Administered Count Last Ordered Date First Ordered Date bortezomib (VELCADE) chemo i njection 2.375 mg 1 10/08/2024 Nursing Count Last Ordered Date First Orde red Date ONC NURSING COMMUNICATION 5 1 10/08/2024 documented in this encounter Care Teams Staff Submarine Warfare Officer Relationship Specialty Start Date End Date Reyes Emanuel MD [address] [place] [address] PCP - General Internal Medicine 04/22/24 documented as of this encounter
--- OUTSIDE RECORDS SUMMARY | 2024-10-09 01:01 | XMS_ITS | Encounter Summary ---
Author Organization [facility] Address [address] [place] [address] Care Team Providers Care Tail Edger Name Role Phone Reyes Emanuel MD Primary Care Provider [phone] Encounter Details Date Type Department Care Team (Latest Contact Info) Description 10/06/2024 11:30 AM EDT Hospital Encounter [facility] Infusion Center [address] [phone] Ilan Townsend MD [address] [place] [address] Malignant melanoma of skin of upper extremity, including shoulder, unspecified laterality (CMS/HCC V24, CMS/HCC V28) (Primary Dx); Multiple myeloma not having achieved remission (CMS/HCC V24, CMS/HCC V28) Social History Tobacco Use Types Packs/Day Years [...] care for your loved ones. For example, director child development center or elderly care for an older adult? [...] Sign Reading Time Taken Comments Blood Pressure 140/74 10/06/2024 2:30 PM EDT Pulse 71 10/06/2024 2:30 PM EDT Temperature 36.2 ??C (97.2 ??F) 10/06/2024 2:30 PM ED T Respiratory Rate 18 10/06/2024 2:30 PM EDT Oxygen Saturation 97% 10/06/2024 11:48 AM EDT Inhaled Oxygen Concentration - - Weight - - Height - - Body Mass Index - - documented in this encounter Progress Notes * Diane Tellez RN - 10/06/2024 11:30 AM EDT Patient arrives ambulatory for blood transfusion. Patient states uneventful evening last night after tx. She states I feel so good actually because of the steroids Patient talks about how well thesteroids work for her and how she saves a lot of the things she has to do for when she gets steroids. Patient denies bleeding. She states her sob and fatigue are her baseline and no worse than usual Patient states she has got blood in the past and is familiar with how the day will run. Consent signed for blood and request sent to blood bank. PIV started, call blevins at reach, will monitor *Patient to also get replacement potassium po today with her blood transfusion. Patient tolerated first 15 minutes of blood transfusion without incident. Vitals are obtained and ok to continue, patient has no s/s of allergic reaction. 1332- Patient is resting comfortable in the chair, she has no acute complaints. Will continue to monitor. Patient finished blood transfusion without incident and with no acute complaints. Patient took her potassium pills without incident. PIV removed with pressure dressing. Patient left stable and ambulatory, instructed to call with anyquestions or concerns. Patient to return for chemo. documented in this encounter Plan of Treatment Upcoming Encounters Date Type Department Care Team (Late st Contact Info) Description 10/12/2024 11:30 AM EDT Appointment [facility] [address] [place] [address] [address] [place] [phone] 10/15/2024 11:30 AM EDT Appointment [facility] Infusion Center [address] [place] [phone] 10/19/2024 11:30 AM EDT Appointment [facility]fusion Center [address] [place] [phone] 10/28/2024 11:30 AM EDT Office Visit [facility] Hematology Oncology [address] [place] [phone] Ilan Townsend MD [address] [place] [address] 03/13/2025 11:00 AM EDT Appointment Radiology Department [address] [phone] documented as of this encounter Procedures Procedure [...] V28) documented in this encounter Results * Transfuse RBC (10/06/2024 2:45 PM EDT) us Ilan Townsend MD BLOOD TRANSFUSION ORDERABLES Final Result * Transfuse RBC: 1 Units (10/06/2024 2:45 PM EDT) us Ilan Townsend MD BLOOD TRANSFUSION ORDERABLES Final Result * Prepare RBC: 1 Units (10/06/2024 11:43 AM EDT) Product Code [id number] 10/06/2024 12:14 PM EDT [facility] Unit Number [id number] 10/07/19 12:14 PM EDT [facility] Crossmatch Compatible 10/06/2024 11:50 AM EDT [facility] Dispense Status Transfused 10/06/2024 12:14 PM EDT [facility] Unit ABO Rh OPOS 10/06/2024 12:14 PM EDT [facility] Unit Expiration Date Time [id number] 10/06/2024 12:14 PM EDT [facility] Unit Blood Type 5100 10/06/2024 12:14 PM EDT [facility] Blood Venous blood specimen / Unknown 10/06/2024 11:43 AM EDT 10/05/2024 1:51 PM EDT Ilan Townsend MD BLOOD BANK PRODUCT ORDERABLE S Final Result [facility] [address] [place] [address], documented in this encounter Visit Diagnoses Diagnosis Malignant melanoma of skin of upper extremity, including shoulder, unspecified laterality (CMS/HCC V24, CMS/HCC V28)- Primary Multiple myeloma not having achieved remission (CMS/HCC V24, CMS/[facility] V28) Encounter for screening mammogram for breast cancer documented in this encounter Administered Medications Inactive Administered Medications - up to 3 most recent administrations Medication Order MAR Action Action Date Dose Rate Site potassium chloride (KLOR-CON M20) CR tablet 20 mEq 20 mEq, oral, Once, On Sat10/06/24 at 1230, For 1 dose, Tablet may be swallowed whole (do not crush/chew/suck on) OR broken in half and each half swallowed separately OR dissolved (whole tablet) in ~4 ounces of water (allow ~2 minutes to dissolve, stir well and administer immediately). Given 10/06/2024 2:28 PM EDT 20 mEq documented in this encounter Orders Medications Ordered That Torin ht Not Have Been Administered Count Last Ordered Date First Ordered Date potassium chloride (KLOR-CON M20) CR tablet 20 mEq 1 10/06/2024 documented in this encounter Care Teams Tail Edger Relationship Specialty Start Date End Date Reyes Emanuel MD [address] [place] [id number] PCP - General Internal Medicine 04/22/24 documented as of this encounter
--- OUTSIDE RECORDS SUMMARY | 2024-10-09 01:01 | XMS_ITS ---
Author Organization [facility] Address [address] [place] [address] Phone Care Team Providers Care Red Lead Burner Name Role Phone Reyes Emanuel MD Primary Care Provider [phone] Active Problems Problem Noted Date Diagnosed Date Multiple myeloma not having achieved remission ([facility] V24, [facility] V28) 08/21/2024 Compression fracture of thor acic vertebra ([facility] V24, [facility] V28) 08/05/2024 Assessment & Plan (08/05/2024 11:58 [...] follow-up in August. She is seeing the group exercise instructor tomorrow. We talked about the possibility of treatment of her lower lumbar compression fractures if the pain is intolerable which does not seem to be at this time. She will follow-up as needed. Other osteoporosis with curr ent pathological fracture, vertebra(e), sequela 07/21/2024 Compression fracture of L2 l umbar vertebra ([facility] V24, [facility] V28) 07/02/2024 Assessment & Plan (07/02/2024 3:57 [...] fractures. She is scheduled to see an group exercise instructor because of her osteopenia and fractures. I [...] ID COPD (chronic obstructive pu lmonary disease) ([facility] V24, [facility] V28) 12/23/2009 Overview (05/13/2024): 12/05/09 PFTs - Mild obstructive ventilatory defect without reversibility to inhaled bronchodilator. 02 saturation, resting on room air, was normal at 98%. Diffuse cystic mastopathy 03/29/2007 Overview (05/13/2024): neg steriotactic bx 08/14, repeat mammogram 2/08 Lymphedema 12/21/2006 Overview (05/13/2024): post surgery for melanoma Malignant melanoma of skin o f upper limb, including shoulder ([facility] V24, [facility] V28) 12/21/2006 Overview (05/13/2024): left forearm 1988, 0/17 lymph nodes, lymphedema Depressive disorder 05/31/2006 Current Oncology Plans Bortezomib / Lenalidomide / DexAMETHasone + Daratumumab and hyaluronidase-fihj ( or Daratumumab IV ) followed by Maintenance (ordered separately)* Plan Start Date:09/02/2024 Plan Provider:Ilan Townsend MD Linked Problems Multiple myeloma not having achieved remission ([facility] V24, [facility] V28) Treatment Medications Current Day (Day 8 , Cycle 2 - Planned for 10/12/2024) Next Day (Day 11, Cycle 2 - Planned for 10/15/2024) bortezomib (VELCADE)daratumumab-hyaluron idase-fihj (DARZALEX FASPRO)lenalidomide (REVLIMID) bortezomib (VELCADE) chemo injection 2.375 mgdaratumumab-hyaluronidase- fihj (DARZALEX FASPRO) injection 1,800 mg bortezomib (VELCADE) chemo injection 2.35 mg OUTPATIENT TRANSFUSION (PRN)* Plan Start Date:09/15/2024 Plan Provider:Ilan Townsend MD Linked Problems Malignant melanoma of skin o f upper extremity, including shoulder, unspecified laterality ([facility] V24, [facility] V28)Multiple myeloma not having achieved remission ([facility] V24, [facility] V28) Treatment Medications No medications scheduled. ZOLEDRONIC ACID ( ZOMETA ) EVERY 4 WEEKS* Plan Start Date:08/26/2024 Plan Provider:Ilan Townsend MD Linked Problems Multiple myeloma not having achieved remission ([facility] V24, [facility] V28) Treatment Medications No medications scheduled. Past Plans No past plan information found. Radiation Treatments * No radiation treatments are documented for this patient in [facility]. Treatments may have been administered in another system. Resolved Problems Problem Noted Date Diagnosed Date Resolved Date Fever and neutropenia ([facility] V24) 09/19/2024 09/19/2024 Severe sepsis with acute org an dysfunction ([facility] V24, [facility] V28) 09/15/2024 09/19/2024
--- OUTSIDE RECORDS SUMMARY | 2024-10-09 01:02 | XMS_ITS | Encounter Summary ---
Author Organization [facility] Address [address] [place] [address] Care Team Providers Care Vending Service Technician Name Role Phone Laney Dunaway MD Primary Care Provider Piotr Vanessa PA-C Primary Care Provider [phone] Hilda Wilkins MD Unavailable Unavailable Reyes Emanuel MD Primary Care Provider [phone] Reason for Visit * Reason Onset Date Comments refill request 02/21/2018 Encounter Details Date Type Department Care Team Description 02/21/2018 Refill Adult Medicine [address] [phone] Zuleika Mir MD refill request Social History Tobacco Use Types Packs/Day Years Used Date Smoking Tobacco: Every Day Cigarettes 0.5 44 Smokeless Tobacco: Never Comments:started at 13 Alcohol Use Standard Drinks/Week Comments Yes 0 (1 standard drink = 0.6 oz pur e alcohol) OCCASIONALLY Sex Assigned at Date Recorded Not on file Job Start Date Occupation Industry Not on file Not on file Not on file documented as of this encounter Plan of Treatment Not on file documented as of this encounter Visit Diagnoses Not on filedocumented in this encounter Care Teams Vending Service Technician Relationship Specialty Start Date End Date Laney Dunaway MD PCP - General 09/28/15 10/10/20 Piotr Osorio PA-C [address] [place] [phone] PCP - General Internal Medicine 10/11/20 10/28/22 Reyes Emanuel MD [address] [place] [address] PCP - General Internal Medicine 10/29/22 Hilda Wilkins MD [address] [place] [address] Specialist Infectious Disease 02/01/22 documented as of this encounter
--- OUTSIDE RECORDS SUMMARY | 2024-10-09 01:02 | XMS_ITS | Encounter Summary ---
Author Organization [facility] Address [address] [place] [address] Care Team Providers Care Mechanic Driver Name Role Phone Hilda Wilkins MD, Antone B. MD Primary Care Provider [phone] Reason for Visit * Reason Onset Date Comments TEST RESULTS 08/01/2023 Encounter Details Date Type Department Care Team Description 08/01/2023 Telephone Gastroenterology - [place] [address] [phone] Floyd Jane PA-C [address] [phone] TEST RESULTS Social History Tobacco Use Types Packs/Day Years [...] on file documented as of this encounter Miscellaneous Notes * Telephone Encounter - Renee Angel - 08/01/2023 2:27 PM EST I do not see any results in [facility], our chart, or [facility] and tried calling patient to find out where she had it done. If she calls back, please ask her where she had it done. Once I have the results I will forward to Floyd for review. * Telephone Encounter - Skyla Faith - 08/01/2023 1:49 PM EST Patient is calling in for her take home fecal test results. Patient states if she doesn't answer toplease leave a detailed message of results. documented in this encounter Plan of Treatment Not on file documented as of this encounter Visit Diagnoses Not on filedocumented in this encounter Care Teams Mechanic Driver Relationship Specialty Start Date End Date Reyes Emanuel MD [address] [place] [phone] PCP - General Internal Medicine 10/29/22 Hilda Wilkins MD Specialist Infectious Disease 02/01/22 documented as of this encounter
--- OUTSIDE RECORDS SUMMARY | 2024-10-09 01:02 | XMS_ITS | Encounter Summary ---
Author Organization [facility] Address [address] [place] [address] Care Team Providers Care Commodity Supervisor Name Role Phone Laney Dunaway MD Primary Care Provider Piotr Vanessa PA-C Primary Care Provider [phone] Hilda Wilkins MD Unavailable Unavailable Reyes Emanuel MD Primary Care Provider [phone] Reason for Visit * Reason Onset Date Comments immunizations 07/21/2017 Encounter Details Date Type Department Care Team Description 07/21/2017 Telephone Adult Urgent Care - [address] [phone] Zuleika Mir MD immunizations Social History Tobacco Use Types Packs/Day Years Used Date Smoking Tobacco: Every Day Cigarettes 0.5 30 Smokeless Tobacco: Never Comments:started at 13 Alcohol Use Standard Drinks/Week Comments Yes 0 (1 standard drink = 0.6 oz pur e alcohol) OCCASIONALLY Sex Assigned at Date Recorded Not on file Job Start Date Occupation Industry Not on file Not on file Not on file documented as of this encounter Miscellaneous Notes * Telephone Encounter - Iris Penny L.P.N. - 07/21/2017 1:23 PM EST Pt. Looking for immunization records. Printed for patient. documented in this encounter Plan of Treatment Not on file documented as of this encounter Visit Diagnoses Not on filedocumented in this encounter Care Teams Commodity Supervisor Relationship Specialty Start Date End Date Laney Dunaway MD PCP - General 09/28/15 10/10/20 Piotr Osorio PA-C [address] [place] [phone] PCP - General Internal Medicine 10/11/20 10/28/22 Reyes Emanuel MD [address] [place] [address] PCP - General Internal Medicine 10/29/22 Hilda Wilkins MD [address] [place] [address] Specialist Infectious Disease 02/01/22 documented as of this encounter
--- OUTSIDE RECORDS SUMMARY | 2024-10-09 01:02 | XMS_ITS | Encounter Summary ---
Author Organization [facility] Address [address] [place] [address] Care Team Providers Care Water Team Leader Name Role Phone Hilda Wilkins MD Unavailable Unavailable Reyes Emanuel MD Primary Care Provider [phone] Encounter Details Date Type Department Care Team Description 11/18/2023 Telephone Adult Medicine [address] [phone] Reyes Emanuel MD [address] [place] [address] [phone] Social History Tobacco Use Types Packs/Day Years [...] on filedocumented in this encounter Care Teams Water Team Leader Relationship Specialty Start Date End Date Reyes Emanuel MD [address] [place] [phone] PCP - General Internal Medicine 10/29/22 Hilda Wilkins MD Specialist Infectious Disease 02/01/22 documented as of this encounter
--- OUTSIDE RECORDS SUMMARY | 2024-10-09 01:02 | XMS_ITS | Encounter Summary ---
Author Organization [facility] Address [address] [place] [address] Care Team Providers Care Design Agent Name Role Phone Laney Dunaway MD Primary Care Provider Piotr Vanessa PA-C Primary Care Provider [phone] Hilda Wilkins MD Unavailable Unavailable Reyes Emanuel MD Primary Care Provider [phone] Reason for Visit * Reason Comments refill request Encounter Details Date Type Department Care Team Description 04/19/2017 Refill Adult Medicine [address] [phone] Zuleika Mir MD refill request Social History [...] on filedocumented in this encounter Care Teams Design Agent Relationship Specialty Start Date End Date Laney Dunaway MD PCP - General 09/28/15 10/10/20 Piotr Osorio PA-C [address] [place] [address] [phone] PCP - General Internal Medicine 10/11/20 10/28/22 Reyes Emanuel MD [address] [place] [phone] PCP - General Internal Medicine 10/29/22 Hilda Wilkins MD [address] [place] [address] Specialist Infectious Disease 02/01/22 documented as of this encounter
--- OUTSIDE RECORDS SUMMARY | 2024-10-09 01:02 | XMS_ITS | Encounter Summary ---
Author Organization [facility] Address [address] [place] [address] Care Team Providers Care Political Analyst Name Role Phone Laney Dunaway MD Primary Care Provider Piotr Vanessa PA-C Primary Care Provider [phone] Hilda Wilkins MD Unavailable Unavailable Reyes Emanuel MD Primary Care Provider [phone] Reason for Visit * Reason Onset Date Comments refill request 12/19/2016 Encounter Details Date Type Department Care Team Description 12/19/2016 Refill Adult Medicine [address] [id number] Zuleika Mir MD refill request Social History [...] on filedocumented in this encounter Care Teams Political Analyst Relationship Specialty Start Date End Date Laney Dunaway MD PCP - General 09/28/15 10/10/20 Piotr Osorio PA-C [address] [place] [address] [phone] PCP - General Internal Medicine 10/11/20 10/28/22 Reyes Emanuel MD [address] [place] [address] PCP - General Internal Medicine 10/29/22 Hilda Wilkins MD [address] [place] [address] Specialist Infectious Disease 02/01/22 documented as of this encounter
--- OUTSIDE RECORDS SUMMARY | 2024-10-09 01:02 | XMS_ITS | Encounter Summary ---
Author Organization [facility] Address [address] [place] [address] Care Team Providers Care Pilot Can Router Name Role Phone Piotr Osorio PA-C Primary Care Provider [phone] Hilda Wilkins MD, Antone B. MD Primary Care Provider [phone] Encounter Details Date Type Department Care Team Description 08/15/2022 Refill Adult Medicine [address] [phone] Piotr Osorio PA-C [address] [place] [address] [phone] Social History Tobacco Use Types Packs/Day Years [...] suspected to have Coronavirus/COVID-19? No / Unsure 08/06/2022 3:57 PM EST documented as of this encounter Plan of Treatment Not on file documented as of this encounter Visit Diagnoses Not on filedocumented in this encounter Care Teams Pilot Can Router Relationship Specialty Start Date End Date Piotr Osorio PA-C [address] [place] [address] [phone] PCP - General Internal Medicine 10/11/20 10/28/22 Reyes Emanuel MD [address] [place] [phone] PCP - General Internal Medicine 10/29/22 Hilda Wilkins MD [address] [place] [address] Specialist Infectious Disease 02/01/22 documented as of this encounter
--- OUTSIDE RECORDS SUMMARY | 2024-10-09 01:02 | XMS_ITS | Encounter Summary ---
Author Organization [facility] Address [address] [place] [address] Care Team Providers Care Promotion Specialist Name Role Phone Laney Dunaway MD Primary Care Provider Piotr Vanessa PA-C Primary Care Provider [phone] Hilda Wilkins MD Unavailable Unavailable Reyes Emanuel MD Primary Care Provider [phone] Encounter Details Date Type Department Care Team Description 03/14/2017 Hospital Medical Records [address] [place] [phone] Jose Garcia MD Social History Tobacco Use Types Packs/Day Years [...] on filedocumented in this encounter Care Teams Promotion Specialist Relationship Specialty Start Date End Date Laney Dunaway MD PCP - General 09/28/15 10/10/20 Piotr Osorio PA-C [address] [place] [address] PCP - General Internal Medicine 10/11/20 10/28/22 Reyes Emanuel MD [address] [place] [address] [phone] PCP - General Internal Medicine 10/29/22 Hilda Wilkins MD [address] [place] [address] Specialist Infectious Disease 02/01/22 documented as of this encounter
--- OUTSIDE RECORDS SUMMARY | 2024-10-09 01:02 | XMS_ITS | Encounter Summary ---
Author Organization [facility] Address [address] [place] [address] Care Team Providers Care Liability Claims Representative Name Role Phone Hilda Wilkins MD Unavailable Unavailable Reyes Emanuel MD Primary Care Provider [phone] Reason for Visit * Reason Onset Date Comments Medication 12/04/2023 Encounter Details Date Type Department Care Team Description 12/04/2023 Refill Gastroenterology - [address] [place] [address] Lory Garcia MD [address] [place] [address] [phone] Medication Social History Tobacco Use Types Packs/Day Years [...] on filedocumented in this encounter Care Teams Liability Claims Representative Relationship Specialty Start Date End Date Reyes Emanuel MD [address] [place] [phone] PCP - General Internal Medicine 10/29/22 Hilda Wilkins MD Specialist Infectious Disease 02/01/22 documented as of this encounter
--- OUTSIDE RECORDS SUMMARY | 2024-10-09 01:02 | XMS_ITS | Encounter Summary ---
Author Organization [facility] Address [address] [place] [address] Care Team Providers Care Band Booker Name Role Phone Hilda Wilkins MD Unavailable Unavailable Reyes Eamnuel MD Primary Care Provider [phone] Encounter Details Date Type Department Care Team Description 08/13/2023 [facility] Medical Records [address] [place] [phone] Abstract, Provider Social History Tobacco Use Types Packs/Day Years [...] on filedocumented in this encounter Care Teams Band Booker Relationship Specialty Start Date End Date Reyes Emanuel MD [address] [place] [address] [phone] PCP - General Internal Medicine 10/29/22 Hilda Wilkins MD Specialist Infectious Disease 02/01/22 documented as of this encounter
--- OUTSIDE RECORDS SUMMARY | 2024-10-09 01:02 | XMS_ITS | Encounter Summary ---
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; regional intermodal truck driver current use of anticoagulant therapy Social History Tobacco Use Types Packs/Day Years [...] on file documented as of this encounter Results * LDH (02/20/2017 4:50 PM EDT) LACTATE DEHYDROGENASE 183 120 - 246 U/L 02/20/2017 7:10 PM EDT [facility] 02/20/2017 4:50 PM EDT 02/20/2017 4:51 PM EDT Zuleika Mir MD LAB Performing Organization Address City/State/ZIP Co hi Phone Number [facility] [employer] * ASSAY, PREALBUMIN (02/20/2017 4:50 PM EDT) PREALBUMIN 22 18 - 45 mg/dL 02/20/2017 7:10 PM EDT [facility] 02/20/2017 4:50 PM EDT 02/20/2017 4:51 PM EDT Zuleika Mir MD LAB Performing Organization Address City/[facility] Co de Phone Number [facility] [employer] * URIC ACID (02/20/2017 4:50 PM EDT) Pathologist [facility] Uric Acid 3.9 2.1 - 6.2 mg/dL 02/20/2017 5:49 PM EDT [facility] 02/20/2017 4:50 PM EDT 02/20/2017 4:51 PM EDT Zuleika Mir MD LAB Performing Organization Address [facility] Co de Phone Number [facility] [address] [facility] * RBC SEDIMENTATION RATE, NON-AUTO (02/20/2017 4:50 PM EDT) Pathologist [facility] ESR 10 0 - 30 mm/hr 02/20/2017 7:08 PM EDT [facility] 02/20/2017 4:50 PM EDT 02/20/2017 4:51 PM EDT Zuleika Mir MD LAB Performing Organization Address [facility] Co de Phone Number [address] * (ABNORMAL) URINALYSIS, COMPLETE (02/20/2017 4:50 PM EDT) [facility] SPECIFIC GRAVITY, URINE 1.026 1.005 - 1.030 02/20/2017 5:05 PM EDT [facility] PH, URINE 5.5 5 - 8 02/20/2017 5:04 PM EDT [facility] PROTEIN, URINE NEGATIVE <=TRACE mg/dL 02/20/2017 5:04 PM EDT [facility] GLUCOSE, URINE (UA) NEGATIVE NEGATIVE mg/dL 02/20/2017 5:04 PM EDT [facility] KETONE, URINE TRACE-RECHEC KED(A) NEGATIVE mg/dL 02/20/2017 5:05 PM EDT [facility] BILIRUBIN URINE NEGATIVE NEGATIVE 02/20/2017 5:04 PM EDT [facility] UROBILINOGEN, URINE 0.2 0.2 - 1.0 E.U./dL 02/20/2017 5:04 PM EDT [facility] BLOOD, URINE NEGATIVE NEGATIVE 02/20/2017 5:04 PM EDT [facility] NITRITE,URINE NEGATIVE NEGATIVE 02/20/2017 5:04 PM [facility] LEUKOC[facility], URINE NEGATIVE NEGATIVE 02/20/2017 5:04 PM EDT [facility] RBC-Urine NONE 0 - 4 /hpf 02/20/2017 5:36 PM [facility] WBC, URINE 0-2 0 - 4 /hpf 02/20/2017 5:36 PM EDT [facility] 02/20/2017 4:50 PM EDT 02/20/2017 4:51 PM EDT Zuleika Mir MD LAB Performing Organization Address [facility] Co de Phone Number [address] * THROMBOPLASTIN TIME, PARTIAL (02/20/2017 4:50 PM EDT) PTT 26.0 20.6 - 33.6 SEC 02/20/2017 5:25 PM EDT [facility] Comment: Please note adjusted APTT (sec) reference range ?? effective 12/09/2015. 02/20/2017 4:50 PM EDT 02/20/2017 4:51 PM EDT Zuleika Mir MD LAB Performing Organization Address [facility] Co de Phone Number [address] * PROTHROMBIN TIME (02/20/2017 4:50 PM EDT) PT 11.6 11.6 - 15.6 SEC 02/20/2017 5:25 PM [facility] Comment: Please note adjusted PT(sec)normal reference range ?? effective 02/08/15. INR 0.86 02/20/2017 5:25 PM [facility] 02/20/2017 4:50 PM EDT 02/20/2017 4:51 PM EDT Zuleika Mir MD LAB [facility] [address] [facility] * (ABNORMAL) COMPREHENSIVE METABOLIC PANEL (02/20/2017 4:50 PM EDT) GLUCOSE 101(H) 70 - 100 mg/dL 02/20/2017 5:49 PM [facility] Comment: Reference range applicable to fasting specimens only Based on recommendations from the ADA and AACE, the fasting glucose reference range has been changed to 70-100 mg/dL. ??This change is effective October 24, 2009 BUN 13 5 - 25 mg/dL 02/20/2017 5:49 PM [facility] CREAT 0.7 0.7 - 1.5 mg/dL 02/20/2017 5:49 PM [facility] BUN/CREAT RATIO 18.6 6.0 - 20.0 02/20/2017 5:49 PM [facility] GFR > 60 >60 02/20/2017 5:49 PM [facility] Comment: If patient is -Italian, multiply result by 1.21 Chronic Kidney Disease: < 60 ml/min/1.73 square meters Kidney Failure: < 15 ml/min/1.73 square meters Sodium 142 133 - 145 mEq/L 02/20/2017 5:49 PM [facility] Potassium 4.2 3.5 - 5.5 mEq/L 02/20/2017 5:49 PM [facility] Chloride 101 96 - 108 mEq/L 02/20/2017 5:49 PM EDT [facility] CO2 26.6 21.0 - 32.0 mEq/L 02/20/2017 5:49 PM EDT [facility] CALCIUM 9.6 8.5 - 10.5 mg/dL 02/20/2017 5:49 PM EDT [facility] TOTAL PROTEIN 6.2 6.0 - 8.3 gm/dL 02/20/2017 5:49 PM EDT [facility] Albumin 4.4 3.2 - 5.6 gm/dL 02/20/2017 5:49 PM EDT [facility] GLOBULIN 1.8(L) 1.9 - 4.4 gm/dL 02/20/2017 5:49 PM EDT [facility] A/G RATIO 2.4(H) 1.1 - 2.3 02/20/2017 5:49 PM EDT [facility] BILI,TOTAL 0.2 0.0 - 1.2 mg/dL 02/20/2017 5:49 PM EDT [facility] AST (SGOT) 17 10 - 42 U/L 02/20/2017 5:49 PM EDT [facility] ALT( SGPT) 13 10 - 60 U/L 02/20/2017 5:49 PM EDT [facility] ALK PHOS 83 42 - 121 U/L 02/20/2017 5:49 PM EDT [facility] 02/20/2017 4:50 PM EDT 02/20/2017 4:51 PM EDT Zuleika Mir MD LAB [facility] [address] [facility] * (ABNORMAL) CBC (AUTO DIFF PLATELET) (02/20/2017 4:50 PM EDT) WBC 5.8 4.8 - 10.8 x10-3 02/20/2017 5:11 PM EDT [facility] RBC 3.5(L) 3.8 - 4.8 x10-6 02/20/2017 5:11 PM EDT [facility] HGB 11.5 11.5 - 16.0 g/dl 02/20/2017 5:11 PM EDT [facility] HCT 35.2 35 - 47 % 02/20/2017 5:11 PM EDT [facility] MCV 99.7(H) 79 - 98 fl 02/20/2017 5:11 PM EDT [facility] MCH 32.6(H) 27 - 32 pg 02/20/2017 5:11 PM EDT [facility] MCHC 32.7 32 - 37 g/dl 02/20/2017 5:11 PM EDT [facility] RDW 14.0 11 - 15 % 02/20/2017 5:11 PM EDT [facility] PLT COUNT 229 130 - 400 x10-3 02/20/2017 5:11 PM EDT [facility] MEAN PLATELET VOLUME 10.7 7 - 11 fl 02/20/2017 5:11 PM EDT [facility] NEUT % 37.5(L) 41 - 85 % 02/20/2017 5:11 PM EDT [facility] LYMPH % 54.2(H) 15 - 48 % 02/20/2017 5:11 PM EDT [facility] MONO % 4.3 0 - 12 % 02/20/2017 5:11 PM EDT [facility] EOS % 3.8 0 - 5 % 02/20/2017 5:11 PM EDT [facility] BASO % 0.2 0 - 2 % 02/20/2017 5:11 PM EDT [facility] 02/20/2017 4:50 PM EDT 02/20/2017 4:51 PM EDT Zuleika Mir MD LAB [facility] [address] [facility] * URINE, CULTURE (02/20/2017 4:50 PM EDT) Urine (Urine) 02/20/2017 4: 50 PM EDT 02/20/2017 4:51 PM EDT Narrative [facility] - 02/21/2017 2:02 PM EDT No growth Zuleika Mir MD LAB [facility] documented in this encounter Visit Diagnoses Diagnosis Preoperative examination Preoperative examination, unspecified Screening for deficiency anemia Screening for other and unspecified deficiency 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
--- OUTSIDE RECORDS SUMMARY | 2024-10-09 01:02 | XMS_ITS | Encounter Summary ---
Author Organization [facility] Address [address] [place] [address] Care Team Providers Care Ring Attacher Name Role Phone Hilda Wilkins MD Unavailable Unavailable Reyes Emanuel MD Primary Care Provider [phone] Reason for Visit * Reason Comments E-prescribe Rx Request Encounter Details Date Type Department Care Team Description 05/25/2023 Refill Adult Medicine [facility] [address] [place] [address] Barbara Alexandre, ONCOLOGY SPECIALIST [address] [place] [address] E-prescribe Rx Request Social History Tobacco Use Types Packs/Day Years [...] encounter Miscellaneous Notes * Telephone Encounter - Anh Duron C.M.A. - 05/27/2023 1:47 PM EST LV 05/16/23 documented in this encounter Plan of Treatment Not on file documented as of this encounter Visit Diagnoses Not on filedocumented in this encounter Care Teams Ring Attacher Relationship Specialty Start Date End Date Reyes Emanuel MD [address] [place] [address] PCP - General Internal Medicine 10/29/22 Hilda Wilkins MD Specialist Infectious Disease 02/01/22 documented as of this encounter
--- OUTSIDE RECORDS SUMMARY | 2024-10-09 01:02 | XMS_ITS | Encounter Summary ---
Author Organization [facility] Address [address] [place] [address] Care Team Providers Care Warp Dyeing Tender Name Role Phone Hilda Wilkins MD Unavailable Unavailable Reyes Emanuel MD Primary Care Provider [phone] Encounter Details Date Type Department Care Team Description 01/02/2023 Cordwood Cutter Helper Report Medical Records [address] [place] [phone] Adrien Alonso PA-C Social History Tobacco Use Types Packs/Day Years [...] on filedocumented in this encounter Care Teams Warp Dyeing Tender Relationship Specialty Start Date End Date Reyes Emanuel MD [address] [place] [address] [phone] PCP - General Internal Medicine 10/29/22 Hilda Wilkins MD Specialist Infectious Disease 02/01/22 documented as of this encounter
--- OUTSIDE RECORDS SUMMARY | 2024-10-09 01:02 | XMS_ITS | Encounter Summary ---
Author Organization [facility] Address [address] [place] [address] Care Team Providers Care Dragsaw Operator Name Role Phone Piotr Osorio PA-C Primary Care Provider [phone] Hilda Wilkins MD Unavailable [facility] Reyes Emanuel MD Primary Care Provider [phone] Encounter Details Date Type Department Care Team Description 10/19/2022 Spring Setter Report Medical Records [address] [place] [address] Adrien Alonso PA-C Social History Tobacco Use [...] on filedocumented in this encounter Care Teams Dragsaw Operator Relationship Specialty Start Date End Date Piotr Osorio PA-C [address] [place] [address] PCP - General Internal Medicine 10/11/20 10/28/22 Reyes Emanuel MD [address] [place] [address] PCP - General Internal Medicine 10/29/22 Hilda Wilkins MD [address] [place] [address] Specialist Infectious Disease 02/01/22 documented as of this encounter
--- OUTSIDE RECORDS SUMMARY | 2024-10-09 01:03 | XMS_ITS | Data Portability ---
Author Organization [facility] [place] Address [address] [place] [address] Care Team Providers Care Bricklayer'S Assistant Name Role Phone LEEANNA MORILLO Primary Care Provider Assessment Encounter Date Assessment Date Assessment LastModified by Organization Details LastModified Time 04/25/2023 04/25/2023 The above findings were discussed with the patient, carpal tunnel syndrome was discussed. Pathology and expected prognosis were discussed. Treatment options include conservative treatment, splinting, injection, and or surgical carpal tunnel release. She has already undergone conservative treatment with a cortisone injection and bracing and would like to discuss surgical intervention at this time. We discussed endoscopic versus open carpal tunnel release and patient would prefer endoscopic carpal tunnel release. Risks of surgery were discussed with the patient which include but are not limited to: bleeding, infection, injury to nerves, tendons, vessels, pain, stiffness, non-relief of symptoms, pillar pain, recurrence, need to convert to open, as well as risk of anesthesia. They understand these risks and agreed to proceed, consent was obtained today. All questions were answered today. She will obtain clearance from her primary care physician. We will begin the process of surgical booking, she like to do it before the end of the year. She does have history of lymphedema in her left upper extremity and cannot get an IV in that arm, therefore we will have to do an IV either in her lower extremity or the operative arm and do a forearm tourniquet. All of her questions were answered, she is in agreement with the plan. [email or web address] Not available 04/25/2023 11:16:06 06/05/2023 06/05/2023 She is 15 days postop status post right endoscopic carpal tunnel release, doing well. At this point she can start scar massage over the incision and over the palm, she can use vitamin E oil or Aquaphor for this. It is okay to get the incision wet though I would not soak it for another week. She can start to do light activity with the right hand and can start gradual strengthening over the next couple weeks. As for the left side, she is starting to experience some symptoms of left-sided carpal tunnel, this is the side that she has lymphedema from previous procedure. I will give her a carpal tunnel brace for her to wear at night for the side to alleviate her symptoms. If she has worsening symptoms she can come back and see me for evaluation for this. If she has any issues with the right side she can come back to be evaluated otherwise I will see her as needed. All of her questions were answered. [email or web address] Not available 06/05/2023 15:37:23 Plan of Treatment Reminders Order Date Submit Date Provider Last Modified By Organization Details Last Modified Time Details Appointments None recorded. Lab None recorded. Referral None recorded. Procedures None recorded. Surgeries carpal tunnel release (SURG) 023 023 [email or web address] Not available 3 10:10:21 Imaging XR, wrist, 3 or more view 023 023 [email or web address] [facility], [address], [place], [address], 3 12:58:25 Medication Orders None recorded. Patient TargetsNo targets recorded. Patient InstructionsNo instructions recorded. Reason for Referral None Reported. Problems Name Problem SNOMED Code Status Onset Date Resolution Date Notes Provider Name and Address Organization Details Recorded Time Carpal tunnel syndrome 05995531 Active 2022 Danielle sierra MD [address], [place], [address], [place] [facility], [facility] 3 11:17:40 Carpal tunnel syndrome of right wrist 898308751589460 Active 2022 Danielle sierra MD [address], [place], [address], [place] [facility], [facility] 3 11:17:56 Carpal tunnel syndrome of left wrist 789673323753383 Active 2022 Danielle sierra MD [address] [place] [address],[facility] [address], [place], [address] , [place] [facility], [facility] 3 15:35:57 Problem Notes None recorded. Medical Equipment None Reported. Medications Name Sig Start Date Stop Date Status Note LastModified by Organization Details LastModified Time cyclobenzap rine 10 mg tablet TAKE 1 TABLET BY MOUTH EVERYDAY AT BEDTIME active Not Available Not Available No t Available gabapentin 600 mg tablet TAKE 1 TABLET BY MOUTH THREE TIMES A DAY active Not Available Not Available No t Available atorvastati n 20 mg tablet TAKE 1 TABLET BY MOUTH EVERY DAY active Not Available Not Available No t Available azithromyci n 250 mg tablet TAKE 2 TABLETS BY MOUTH TODAY, THEN TAKE 1 TABLET DAILY FOR 4 DAYS 04/25 completed Not Available Not Available Not Available ibuprofen 800 mg tablet TAKE 1 TABLET BY MOUTH EVERY 8 HOURS NEEDED FOR PAIN 04/25 completed Not Available Not Available Not Available fluconazole 150 mg tablet TAKE ONE TABLET BY MOUTH TODAY AND 1 TABLET AT THE END OF THE ANTIBIOTI C COURSE 04/25 completed Not Available Not Available Not Available citalopram 10 mg tablet TAKE 1 TABLET BY MOUTH EVERY DAY active Not Available Not Available No t Available meloxicam 15 mg tablet TAKE 1 TABLET BY MOUTH EVERY DAY active Not Available Not Available No t Available prednisone 20 mg tablet TAKE 3 TABS IN THE AM X 5 DAYS, TAKE 2 TABS IN THE AM X 5 DAYS, TAKE 1 TAB IN THE AM X 5 DAYS 04/25 completed Not Available Not Available Not Available amlodipine 5 mg tablet TAKE 1 TABLET BY MOUTH EVERY DAY active Not Available Not Available No t Available oxycodone-a cetaminophe n 5 mg-325 mg tablet TAKE 1 TO 2 TABLETS BY MOUTH EVERY 4 HOURS NEEDED FOR PAIN active Not Available Not Available No t Available hydrocortis one 2.5 % topical cream with perineal applicator APPLY 1 DOSE TOPICALLY 2 TIMES DAILY NEEDED (PAIN). active Not Available Not Available No t Available amitriptyli ne 10 mg tablet TAKE 1 TABLET BY MOUTH EVERY DAY AT BEDTIME NEEDED FOR SLEEP active Not Available Not Available No t Available benzonatate 100 mg capsule TAKE 1 CAPSULE BY MOUTH 3 TIMES DAILY NEEDED FOR COUGH FOR UP TO 10 DAYS. active Not Available Not Available No t Available cephalexin 500 mg capsule TAKE 1 CAPSULE BY MOUTH TWICE A DAY active Not Available Not Available No t Available omeprazole 20 mg capsule,del ayed release TAKE 1 CAPSULE BY MOUTH EVERY DAY active Not Available Not Available No t Available folic acid 1 mg tablet TAKE 1 TABLET BY MOUTH EVERY DAY active Not Available Not Available No t Available levofloxaci n 750 mg tablet TAKE 1 TABLET BY MOUTH EVERY DAY FOR 7 DAYS active Not Available Not Available No t Available albuterol sulfate HFA 90 mcg/actuati on aerosol inhaler INHALE 2 PUFFS INTO THE LUNGS 4 TIMES DAILY NEEDED FOR COUGH, WHEEZING OR SHORTNESS OF BREATH. active Not Available Not Available No t Available doxycycline hyclate 100 mg tablet TAKE 1 TABLET ORALLY EVERY 12 HOURS active Not Available Not Available No t Available Vitals None Recorded Social History None recorded. Functional Status None recorded. Mental Status None recorded. Family History Nothing Reported. Medical History No medical history recorded. Gynecological HistoryNo gynecological history recorded. Obstetrics History GPAL:G 0 P 0 0 0 0 Past Encounters Encounter ID Performer Location Encounter Start Date Encounter Closed Date Diagnosis/Indication Diagnosis SNOMED-CT Code Diagnosis ICD10 Code Diagnosis Note [id number] MD FREDDY Arevalo [facility] [address] [address] 04/25/2023 10:24:00 04/25/2023 11:50:02 Pain of right wrist 2444268115 60587 M25.531 Carpal so janette syndrome of right wrist 9882032053 18573 G56.01 [id number] [facility] [address] [address] 06/05/2023 15:15:19 06/05/2023 15:42:32 Carpal tunnel syndrome of right wrist 7141516103 46719 G56.01 Carpal so janette syndrome of left wrist 9425331689 80691 G56.02 Health Concerns Section Related Observation LastModified by Organization Detai ls LastModified Time None Recorded Concern Status LastModified by Organization Details LastModified Time None Recorded Advance Directives Directive None Recorded Payers Encounter Date Sequence Insurance Name Policy Number Policy Qureshi Covered Member ID Qureshi Member ID Guarantor Name 04/25/2023 1 [employer] - CHOICE (POS II) [id number] Junie Montez [id number] Junie Montez 06/05/2023 1 [employer] - CHOICE (POS II) [id number] Junie Montez [id number] Junie Montez Notes Date Note Type Note Provider Name and Address Organization Details Recorded Time 04/25/2023 text/html This is a 63-yea r-old vpqjj-fjyt-tdmoyger female who is presenting with right hand numbness and tingling. She said this been going on for at least 6 months however has been more persistent recently. At this point she has constant numbness and tingling in her thumb, index, and middle fingers. And never feels normal. She has nighttime symptoms. She was seen by her primary care doctor for this who ordered a electrodiagnostic study and EMG test which showed moderate carpal tunnel and was referred to me. She did have a cortisone injection into her carpal tunnel in October 2022, this did provide symptom relief but only temporarily and now her symptoms are back. She was given a carpal tunnel brace which she wore occasionally at night which does help. She takes meloxicam for arthritic pain in other areas which sometimes helps the carpal tunnel symptoms.She does have history of knee replacement, hypertension, hyperlipidemia, and skin cancer in 1988 that did not require chemotherapy or radiation therapy however has resulted in left side upper extremity lymphedema. She does take Keflex prophylactically for recurrent cellulitis for this. Danielle Freeman MD [address] [place] [address], [address], [place] [facility] 04/25/2023 11:19:39 06/05/2023 text/html Junie arce r her first postop visit for right endoscopic carpal tunnel release performed on 05/21/2023, she is 15 days postop. She has been doing well. She notes no issues with her incision. She does think that the sensation is coming back into her fingers especially her thumb and her index finger. Her pain has been well-controlled.Of note she was diagnosed with pneumonia recently and was placed on levofloxacin and recently prednisone per her primary care physician. She is starting to feel some numbness and tingling in her left thumb and index finger which is intermittent. Danielle Freeman MD [address] [facility],[place] [address], [place], [address], [place] [facility] 06/05/2023 15:37:38 OBGyn Episode No OBEpisode recorded.
--- OUTSIDE RECORDS SUMMARY | 2024-10-09 01:03 | XMS_ITS | Encounter Summary ---
Author Organization [facility] Address [address] [place] [address] Care Team Providers Care Sonoscope Operator Name Role Phone Hilda Wilkins MD, Antone B. MD Primary Care Provider [phone] Reason for Visit * Reason Onset Date Comments Provider Call Back 07/08/2023 Encounter Details Date Type Department Care Team Description 07/08/2023 Telephone Gastroenterology - [place] [address] [id number] Floyd Jane PA-C [address] [address] Provider Call Back Social History Tobacco Use Types Packs/Day Years [...] * Telephone Encounter - Renee Angel - 07/10/2023 10:34 AM EST Patient has been booked for tomorrow at 2:20pm with Floyd. * Telephone Encounter - Floyd Jane PA-C - 07/08/2023 5:36 PM EST For anemia is noted but certainly not severe at this point yet. Patient should use iron and see if we can get her in sooner than October. I see she is on the waiting list. Thank you * Telephone Encounter - Renee Angel - 07/08/2023 12:58 PM EST Patient is on a waitlist. Please advise on anything else that could be done for the patient. Thanks. * Telephone Encounter - Skyla Faith - 07/08/2023 11:35 AM EST Patients PCP'S assistant professor of mathematics Catalina called in and is looking to get the patient in sooner thenwhat we have available in October for a consult on anemia, fhx of colon cancer in mother and brother. Appt in Jun was canceled because she had covid. Thony stated they just did recent blood work and itsworsen. Please reach out to patient and advise documented in this encounter Plan of Treatment Not on file documented as of this encounter Visit Diagnoses Not on filedocumented in this encounter Care Teams Sonoscope Operator Relationship Specialty Start Date End Date Reyes Emanuel MD [address] [place] [address] PCP - General Internal Medicine 10/29/22 Hilda Wilkins MD Specialist Infectious Disease 02/01/22 documented as of this encounter
--- OUTSIDE RECORDS SUMMARY | 2024-10-09 01:03 | XMS_ITS | Encounter Summary ---
Author Organization [facility] Address [address] [place] [address] Care Team Providers Care Fleet Technician Name Role Phone Laney Dunaway MD Primary Care Provider Zuleika Fields MD Primary Care Provider Laney Mcneil MD Primary Care Provider Piotr Vanessa PA-C Primary Care Provider [phone] Hilda Wilkins MD [facility] Reyes Emanuel MD Primary Care Provider [phone] Encounter Details Date Type Department Care Team Description 04/10/2012 Release of Information Medical Records [address] [place] [address] Abstract, Provider Social History Tobacco Use Types Packs/Day Years Used Date Smoking Tobacco: Every Day Cigarettes 0.5 30 Smokeless Tobacco: Never Comments:started at 13 Alcohol Use Standard Drinks/Week Comments No 0 (1 standard drink = 0.6 oz pur e alcohol) Sex Assigned at Date Recorded Not on file Job Start Date Occupation Industry Not on file Not on file Not on file documented as of this encounter Plan of Treatment Not on file documented as of this encounter Visit Diagnoses Not on filedocumented in this encounter Care Teams Fleet Technician Relationship Specialty Start Date End Date Laney Dunaway MD PCP - General Internal Medicine 07/13/11 08/08/15 Zuleika Mir MD PCP - General Internal Medicine 08/09/15 09/27/15 Laney Dunaway MD PCP - General 09/28/15 10/10/20 Piotr Osorio PA-C [address] [place] [address] PCP - General Internal Medicine 10/11/20 10/28/22 Reyes Emanuel MD [address] [place] [address] PCP - General Internal Medicine 10/29/22 Hilda Wilkins MD [address] [place] [address] Specialist Infectious Disease 02/01/22 documented as of this encounter
--- OUTSIDE RECORDS SUMMARY | 2024-10-09 01:03 | XMS_ITS | Encounter Summary ---
Author Organization [facility] Address [address] [place] [address] Care Team Providers Care Sports Leadership Instructor Name Role Phone Laney Dunaway MD Primary Care Provider Zuleika Fields MD Primary Care Provider Laney Mcneil MD Primary Care Provider Piotr Vanessa PA-C Primary Care Provider [phone] Hilda Wilkins MD [facility] Reyes Emanuel MD Primary Care Provider [phone] Encounter Details Date Type Department Care Team Description 08/08/2012 Media Relations Director Report Medical Records [address] [place] [address] Rehab., [place] Social History Tobacco Use Types Packs/Day Years [...] on filedocumented in this encounter Care Teams Sports Leadership Instructor Relationship Specialty Start Date End Date Laney Dunaway MD PCP - General Internal Medicine 07/13/11 08/08/15 Zuleika Mir MD PCP - General Internal Medicine 08/09/15 09/27/15 Laney Dunaway MD PCP - General 09/28/15 10/10/20 Piotr Osorio PA-C [address] [place] [address] PCP - General Internal Medicine 10/11/20 10/28/22 Reyes Emanuel MD [address] [place] [address] PCP - General Internal Medicine 10/29/22 Hilda Wilkins MD [address] [place] [address] Specialist Infectious Disease 02/01/22 documented as of this encounter
--- OUTSIDE RECORDS SUMMARY | 2024-10-09 01:03 | XMS_ITS | Encounter Summary ---
Author Organization [facility] Address [address] [place] [address] Care Team Providers Care Boat Engines Installer Name Role Phone Hilda Wilkins MD Unavailable Unavailable Reyes Emanuel MD Primary Care Provider [phone] Encounter Details Date Type Department Care Team Description 03/31/2024 Orders Only Adult Medicine [address] [phone] Reyes Emanuel MD [address] [place] [id number] Social History Tobacco Use Types Packs/Day Years [...] on filedocumented in this encounter Care Teams Boat Engines Installer Relationship Specialty Start Date End Date Reyes Emanuel MD [address] [place] [id number] PCP - General Internal Medicine 10/29/22 Hilda Wilkins MD Specialist Infectious Disease 02/01/22 documented as of this encounter
--- OUTSIDE RECORDS SUMMARY | 2024-10-09 01:03 | XMS_ITS | Encounter Summary ---
Author Organization [facility] Address [address] [place] [address] Care Team Providers Care Buttermilk Drier Operator Name Role Phone Hilda Wilkins MD Unavailable Unavailable Reyes Emanuel MD Primary Care Provider [phone] Encounter Details Date Type Department Care Team Description 06/12/2023 Orders Only Medical Records [address] [place] [address] [facility] Social History Tobacco Use Types Packs/Day Years [...] on file documented as of this encounter Procedures Procedure Name Priority Date/Time Associated Diagnosis Comments OUTSIDE PLAIN FILM Routine 05/30/2023 documented in this encounter Results * OUTSIDE PLAIN FILM (05/30/2023) [facility] RADIOLOGY documented in this encounter Visit Diagnoses Not on filedocumented in this encounter Care Teams Buttermilk Drier Operator Relationship Specialty Start Date End Date Reyes Emanuel MD [address] [place], [place] [id number] PCP - General Internal Medicine 10/29/22 Hilda Wilkins MD Specialist Infectious Disease 02/01/22 documented as of this encounter
--- OUTSIDE RECORDS SUMMARY | 2024-10-09 01:03 | XMS_ITS | Encounter Summary ---
Author Organization [facility] Address [address] [place] [address] Care Team Providers Care Electrician Apprentice Name Role Phone Hilda Wilkins MD [facility] Reyes Emanuel MD Primary Care Provider [phone] Reason for Visit * Reason Onset Date Comments Prior Authorization 04/10/2024 [facility] Encounter Details Date Type Department Care Team Description 04/10/2024 Telephone Adult Medicine [address] [address] Kassandra Fajardo MD [address] [place] [address] [address] [place] [address] Prior Authorization ([facility]) Social History Tobacco Use Types Packs/Day Years [...] encounter Miscellaneous Notes * Telephone Encounter - Ginger De La Torre - 04/10/2024 7:49 AM EDT Marquise auth # [id number] Valid 04/10/2024-10/07/2024 Adia Order faxed to [facility] dept at [facility]. They will contact patient and schedule appt. Notification letter sent documented in this encounter Plan of Treatment Not on file documented as of this encounter Visit Diagnoses Not on filedocumented in this encounter Care Teams Electrician Apprentice Relationship Specialty Start Date End Date Reyes Emanuel MD [address] [place] [address] PCP - General Internal Medicine 10/29/22 Hilda Wilkins MD Specialist Infectious Disease 02/01/22 documented as of this encounter
--- OUTSIDE RECORDS SUMMARY | 2024-10-09 01:03 | XMS_ITS | Clinical Summary ---
Author Organization [facility] Address [address] [place] [address] Care Team Providers Care Machinist Class B Name Role Phone Hilda Wilkins MD, Antone B. MD Primary Care Provider [phone] Allergies No known active allergies Medications Medication Sig Dispensed Refills Start Date End Date Status ibuprofen (ADVIL,MOTRIN) 800 MG tablet TAKE 1 TABLET BY MOUTH EVERY 8 HOURS NEEDED FOR PAIN 270 Tablet 3 05/25/2022 Active amitriptyline (ELAVIL) 10 MG tablet Take 1 Tablet by mouth at bedtime as needed for Sleep. 90 Tablet 3 07/03/2022 Active cyclobenzaprine (FLEXERIL) 10 MG tablet Take 1 Tablet by mouth at bedtime. 30 Tablet 3 11/22/2022 Active Cyanocobalamin (B-12) 2000 MCG Tab Take 1 Tablet by mouth daily. 30 Tablet 5 12/07/2022 Active Hydrocortisone, Perianal, 2.5 % Cream Apply 1 Dose topically 2 times daily as needed (pain). 30 g 0 03/13/2023 Active ALBUTEROL SULFATE 108 (90 Base) MCG/ACT Aero Soln Inhale 2 Puffs into the lungs 4 times daily as needed for Cough, Wheezing or Shortness of Breath. 8.5 g 3 05/16/2023 Active predniSONE (DELTASONE) 20 MG tabletIndications:C hronic obstructive pulmonary disease with acute exacerbation (HCC) Take 2 Tablets by mouth daily. 10 Tablet 0 06/05/2023 Active tiotropium (Spiriva HandiHaler) 18 MCG inhalation capsuleIndications: Chronic obstructive pulmonary disease with acute exacerbation (HCC) Inhale 1 Capsule into the lungs daily. Inhale the contents of one capsule through the Spiriva device every AM 30 Capsule 12 06/05/2023 Active guaifenesin-codeine (TUSSI-ORGANIDIN NR) 100-10 MG/5ML syrup Take 10 mL by mouth 4 times daily as needed for Cough. 240 mL 0 06/14/2023 Active lorazepam (ATIVAN) 0.5 MG tablet Take 1 Tablet by mouth 2 times daily as needed for Anxiety. 60 Tablet 0 06/24/2023 Active meloxicam (MOBIC) 15 MG tablet Take 1 Tablet by mouth daily. 90 Tablet 3 08/12/2023 Active citalopram (CeleXA) 10 MG tablet Take 1 Tablet by mouth daily. 90 Tablet 3 08/12/2023 Active oxycodone-acetamino phen (PERCOCET) 5-325 MG per tablet Take 1-2 Tablets by mouth every 4 hours as needed for Pain. 60 Tablet 0 08/12/2023 Active nabumetone (RELAFEN) 750 MG tablet Take 1 Tablet by mouth 2 times daily for 360 days. 60 Tablet 11 08/15/2023 Active atorvastatin (LIPITOR) 20 MG tablet TAKE 1 TABLET BY MOUTH EVERY DAY 90 Tablet 1 11/19/2023 Active folic acid (FOLVITE) 1 MG tablet TAKE 1 TABLET BY MOUTH EVERY DAY 90 Tablet 1 12/09/2023 Active predniSONE (DELTASONE) 20 MG tablet Take 3 tabs QAM x 5 days, take 2 tabs QAM x 5 days, take 1 tab QAM x 5 days 30 Tablet 0 12/09/2023 Active gabapentin (NEURONTIN) 600 MG tabletIndications:F ibromyalgia,Bilater al shoulder pain, unspecified chronicity TAKE 1 TABLET BY MOUTH 3 TIMES DAILY 270 Tablet 3 12/23/2023 Active cephALEXin (KEFLEX) 500 MG capsuleIndications: Left arm cellulitis Take 1 Capsule by mouth 2 times daily. 180 Capsule 5 12/23/2023 Active predniSONE (DELTASONE) 20 MG tablet Take 3 tabs QAM x 3 days, take 2 tabs QAM x 3 days, take 1 tab QAM x 3 days 18 Tablet 0 12/27/2023 Active omeprazole (PRILOSEC) 20 MG capsule TAKE 1 CAPSULE BY MOUTH EVERY DAY 90 Capsule 1 12/31/2023 Active amlodipine (NORVASC) 5 MG tablet TAKE 1 TABLET BY MOUTH EVERY DAY 90 Tablet 1 12/31/2023 Active Cyanocobalamin (B-12) 2000 MCG Tab Take 1 Tablet by mouth daily. 90 Tablet 1 02/28/2024 Active tramadol (ULTRAM) 50 MG tablet Take 1 Tablet by mouth every 6 hours as needed for Pain for up to 7 days. 45 Tablet 0 03/31/2024 Active Ipratropium-Albuter ol (Combivent Respimat) 20-100 MCG/ACT Aero SolnIndications:Chr onic obstructive pulmonary disease, unspecified COPD type (HCC) Inhale 1 Puff into the lungs 4 times daily for 364 days. 3 inhalers and 3 refills 3 g 3 04/01/2024 03/31/2025 Active alendronate (Fosamax) 70 MG tablet Take 1 Tablet by mouth every 7 days. 4 Tablet 5 04/07/2024 Active Active Problems Problem Noted Date B12 deficiency 06/01/2019 Fibromyalgia 08/16/2018 Neck pain 04/23/2018 Enlarged lymph node 08/09/2017 HTN (hypertension), benign 02/25/2017 External hemorrhoid 08/27/2016 Vitamin D deficiency 11/30/2015 Shoulder pain 12/14/2013 Cellulitis 11/25/2010 Overview: Recurrent cellulitis of the left arm. Follows with Krystal Livingston, [place] Family history of colonic polyps 010 Overview: Negative colonoscopy 06/06/2010, no colon cancer screening needed for 5 years. MILD COPD (Chronic Obstructive Pulmonary Disease) 12/23/2009 Overview: 12/05/09 PFTs - Mild obstructive ventilatory defect without reversibility to inhaled bronchodilator. 02 saturation, resting on room air, was normal at 98%. Diffuse cystic mastopathy 03/29/2007 Overview: neg steriotactic bx 08/14, repeat mammogram 07/18 Lymphedema 12/21/2006 Overview: post surgery for melanoma MALIGNANT MELANOMA 12/21/2006 Overview: left forearm 1988, 0/17 lymph nodes, lymphedema Depressive disorder, not elsewhere class ified 05/31/2006 Resolved Problems Problem Noted Date Resolved Date COPD-- 20 pack years 12/21/2006 12/23/2009 Immunizations Name Administration Dates Next Due COVID-19 (Moderna) 07/21/2020,06/23/2020 Influenza (> 6 Months) 04/26/2020,02/08/2018, Influenza Flu (PT Reported) 04/19/2016 Pneumoccoccal(Adult) Polysaccharide PPSV23 05/16 Tdap 01/09/2010 Family History Medical History Relation Name Comments Ankylosing Spondylitis Mother Arthritis Mother CA of Renal Cell Mother Cancer of the Colon Mother Hypertension Mother CA Breast Other mat aunt ckd Sister 1 Colon Polyps Sister 2 dx age 54 with 3 polyps Cancer of the Colon Uncle maternal ; age 52 CA Ovarian Negative Hx Uterine Cancer Negative Hx Relation Name Status Comments Brother Alive [...] Passive Smoke Exposure: Past Smokeless Tobacco: Never Tobacco Cessation:Ready to Q uit: Not Asked; Counseling Given: Not Answered Comments:started at 13 Alcohol Use Standard Drinks/Week Comments Yes 0 (1 standard drink = 0.6 oz pur e alcohol) OCCASIONALLY Sex Assigned at Date Recorded Not on file Job Start Date Occupation Industry Not on file Not on file Not on file Last Filed Vital Signs Vital Sign Reading Time Taken Comments Blood Pressure 117/71 04/01/2024 1:54 PM EDT Pulse 86 04/01/2024 1:54 PM EDT Temperature 36.1 ??C (96.9 ??F) 04/01/2024 1:54 PM ED T Respiratory Rate 18 04/01/2024 1:54 PM EDT Oxygen Saturation 96% 04/01/2024 1:54 PM EDT Inhaled Oxygen Concentration - - Weight 70.5 kg (155 lb 8 oz) 04/01/2024 1:54 PM EDT Height 172.7 cm (5' 8 ) 04/01/2024 1:54 PM EDT Body Mass Index 23.64 04/01/2024 1:54 PM EDT Plan of Treatment Health Maintenance Due Date Last Done Comments SHINGLES VACCINE (1 of 2) 2010 DTAP/TDAP/TD (2 - Td or Tdap) 01/10/2020 01/09/2010 TOBACCO CHECK/ADVISE 02/02/2024 02/01/2022, 02/01/2022, 02/01/2022, Additional history exists Covid-19 Vaccine ( season) 2024 07/21/2020, 06/23/2020 CERVICAL CANCER SCREENING 05/16/20242020, 07/02/2018, 09/26/2012, Additional history exists INFLUENZA (Season Ended) 2025 020, 02/21/2018 (External Completion of Vaccination per patient), 02/08/2018, Additional history exists MAMMOGRAM 03/07/2025 03/07/2024, 02/08, 02/27/2022, Additional history exists SPIROMETRY (BREATHING CAPACITY TEST) FOR COPD 04/01/2026 04/01/2024, 04/01/2024, 06/12/2012, Additional history exists CHOLESTEROL SCREENING 02/01/2027 02/01/2022 , 05/10/2021, 05/04/2018, Additional history exists COLON CANCER SCREENING 12/17/2028 , 06/14/2015, 06/06/2010, Additional history exists HEPATITIS C SCREENING Completed 07/22/2007, 005 PNEUMOCOCCAL VACCINE FOR HIGH RISK PATIENTS Addressed 05/16/2021, 08/27/2013 (Refused) Overridden with the intention of not completing the topic Care Teams Machinist Class B Relationship Specialty Start Date End Date Reyes Emanuel MD [address] [place] [address] PCP - General Internal Medicine 10/29/22 Hilda Wilkins MD Specialist Infectious Disease 02/01/22
[2024-10-09] MEDS: vancomycin HCL 1,500 MG in 0.9 % Sodium Chloride 500 ML 333.33 MG IV ×2 (01:04→23:44)
--- OUTSIDE RECORDS SUMMARY | 2024-10-09 01:04 | XMS_ITS | Encounter Summary ---
Author Organization [facility] Address [address] [place] [address] Care Team Providers Care Fuse Cup Expander Name Role Phone Piotr Osorio PA-C Primary Care Provider [phone] Hilda Wilkins MD, Antone B. MD Primary Care Provider [phone] Reason for Visit * Reason Onset Date Comments Appointment-Internal Referral 11/18/2020 Encounter Details Date Type Department Care Team Description 11/18/2020 Telephone Adult Medicine [address] [id number] Piotr Osorio PA-C [address] [place] [address] [phone] Appointment-Internal Referral Social History Tobacco Use Types Packs/Day Years [...] encounter Miscellaneous Notes * Telephone Encounter - Piotr Osorio PA-C - 11/18/2020 8:00 PM EDT Noted. * Telephone Encounter - Lisbeth Cazares - 11/18/2020 1:11 PM EDT Referral to Physiatry: FYI to referring. Calls made and letter sent for patient to call and schedule appt. Unable to book at this time. documented in this encounter Plan of Treatment Not on file documented as of this encounter Visit Diagnoses Not on filedocumented in this encounter Care Teams Fuse Cup Expander Relationship Specialty Start Date End Date Piotr Osorio PA-C [address] [place] [address] PCP - General Internal Medicine 10/11/20 10/28/22 Reyes Emanuel MD [address] [place] [address] PCP - General Internal Medicine 10/29/22 Hilda Wilkins MD [address] [place] [address] Specialist Infectious Disease 02/01/22 documented as of this encounter
--- OUTSIDE RECORDS SUMMARY | 2024-10-09 01:04 | XMS_ITS | Encounter Summary ---
Author Organization [facility] Address [address] [place] [address] Care Team Providers Care Holistic Pulser Name Role Phone Laney Dunaway MD Primary Care Provider Zuleika Fields MD Primary Care Provider Laney Mcneil MD Primary Care Provider Piotr Vanessa PA-C Primary Care Provider [phone] Hilda Wilkins MD [facility] Reyes Emanuel MD Primary Care Provider [phone] Encounter Details Date Type Department Care Team Description 11/09/2014 MATH TEACHER/MassPat Report Medical Records [address] [place] [id number] Abstract, Provider Social History Tobacco Use Types [...] on filedocumented in this encounter Care Teams Holistic Pulser Relationship Specialty Start Date End Date Laney Dunaway MD PCP - General Internal Medicine 07/13/11 08/08/15 Zuleika Mir MD PCP - General Internal Medicine 08/09/15 09/27/15 Laney Dunaway MD PCP - General 09/28/15 10/10/20 Piotr Osorio PA-C [address] [place] [address] PCP - General Internal Medicine 10/11/20 10/28/22 Reyes Emanuel MD [address] [place] [address] PCP - General Internal Medicine 10/29/22 Hilda Wilkins MD [address] [place] [address] Specialist Infectious Disease 02/01/22 documented as of this encounter
--- OUTSIDE RECORDS SUMMARY | 2024-10-09 01:04 | XMS_ITS | Encounter Summary ---
Author Organization [facility] Address [address] [place] [address] Care Team Providers Care Trackwalker Name Role Phone Hilda Wilkins MD Unavailable Unavailable Reyes Emanuel MD Primary Care Provider [phone] Encounter Details Date Type Department Care Team Description 12/18/2023 Orders Only Medical Records [address] [place] [address] Lory Garcia MD [address] [place] [address] [phone] Social History Tobacco Use Types Packs/Day Years [...] Name Priority Date/Time Associated Diagnosis Comments OUTSIDE COLONOSCOPY Routine 12/18/2023 documented in this encounter Results * OUTSIDE COLONOSCOPY (12/18/2023) Lory Garcia MD RADIOLOGY documented in this encounter Visit Diagnoses Not on filedocumented in this encounter Care Teams Trackwalker Relationship Specialty Start Date End Date Reyes Emanuel MD [address] [place] [address] PCP - General Internal Medicine 10/29/22 Hilda Wilkins MD Specialist Infectious Disease 02/01/22 documented as of this encounter
--- OUTSIDE RECORDS SUMMARY | 2024-10-09 01:04 | XMS_ITS | Encounter Summary ---
Author Organization [facility] Address [address] [place] [address] Care Team Providers Care Database Reporting Consultant Name Role Phone Laney Dunaway MD Primary Care Provider Piotr Vanessa PA-C Primary Care Provider [phone] Hilda Wilkins MD [facility] Unavailable Reyes Emanuel MD Primary Care Provider [phone] Reason for Visit * Reason Comments E-prescribe Rx Request Encounter Details Date Type Department Care Team Description 09/21/2020 Refill Adult Medicine [address] [address] Laney Dunaway MD E-prescribe Rx Request Social History Tobacco Use [...] Exposure Response Date Recorded In the last month, have you been in contact with someone who was confirmed or suspected to have Coronavirus / COVID-19? No / Unsure 08/23/2020 10:54 AM EDT documented as of this encounter Miscellaneous Notes * Telephone Encounter - Laney Dunaway MD - 09/23/2020 12:34 AM EDT Already refilled by Leda Sanchez PA-C on 4/14 for 90 day * Telephone Encounter - Lupe Milligan M.A. - 09/22/2020 4:14 PM EDT Lab Results Component Value Date NA 140 02/13/2019 K 4.0 02/13/2019 CO2 31 02/13/2019 CL 103 02/13/2019 BUN 16 02/13/2019 CREAT 0.63 02/13/2019 GLU 87 02/13/2019 CA 9.6 02/13/2019 GFR > 60 02/13/2019 Last appt with Coleman 08/23/20 * Telephone Encounter - Breanna Castro - 09/22/2020 3:37 PM EDT Patient would like script to be: E-PRESCRIBED/FAXED TO PHARMACY WHEN WAS THE PATIENT'S LAST APPOINTMENT IN ADULT MEDICINE? 08/23/2020 WHEN WAS THE LAST TIME THE PATIENT SAW THEIR PCP? 08/27/2013 Does patient have an upcoming appointment? No-patient refused appointment, will call back to book appointment (THE MEDICATION REQUESTED IS ON THE MED LIST ABOVE) All of the medications requested were on the CURRENT MEDS list Did you check the Pharmacy information above?: YES Patient wants: 30 -day supply Is this a mail order prescription request ? NO If the refill is from a FAXED refill request what is the RX # listed on the fax? N/A Patients current insurance carrier is: Payor: [facility] / Plan: [facility] INSURANCE / Product Type: OTHER documented in this encounter Plan of Treatment Not on file documented as of this encounter Visit Diagnoses Not on filedocumented in this encounter Care Teams Database Reporting Consultant Relationship Specialty Start Date End Date Laney Dunaway MD PCP - General 09/28/15 10/10/20 Piotr Osorio PA-C [address] [place] [address] PCP - General Internal Medicine 10/11/20 10/28/22 Reyes Emanuel MD [address] [place] [address] PCP - General Internal Medicine 10/29/22 Hilda Wilkins MD [address] [place] [address] Specialist Infectious Disease 02/01/22 documented as of this encounter
--- OUTSIDE RECORDS SUMMARY | 2024-10-09 01:04 | XMS_ITS | Encounter Summary ---
Author Organization [facility] Address [address] [place] [address] Care Team Providers Care General Farmer Name Role Phone Laney Dunaway MD Primary Care Provider Zuleika Fields MD Primary Care Provider Laney Mcneil MD Primary Care Provider Piotr Vanessa PA-C Primary Care Provider [phone] Hilda Wilkins MD [facility] Reyes Emanuel MD Primary Care Provider [phone] Encounter Details Date Type Department Care Team Description 11/28/2012 Woods Rider Report Medical Records [address] [place] [address] Sukumar Thornton Social History Tobacco Use Types Packs/Day Years [...] on filedocumented in this encounter Care Teams General Farmer Relationship Specialty Start Date End Date Laney Dunaway MD PCP - General Internal Medicine 07/13/11 08/08/15 Zuleika Mir MD PCP - General Internal Medicine 08/09/15 09/27/15 Laney Dunaway MD PCP - General 09/28/15 10/10/20 Piotr Osorio PA-C [address] [place] [address] PCP - General Internal Medicine 10/11/20 10/28/22 Reyes Emanuel MD [address] [place] [address] PCP - General Internal Medicine 10/29/22 Hilda Wilkins MD [address] [place] [address] Specialist Infectious Disease 02/01/22 documented as of this encounter
--- OUTSIDE RECORDS SUMMARY | 2024-10-09 01:04 | XMS_ITS | Encounter Summary ---
Author Organization [facility] Address [address] [place] [address] Care Team Providers Care Supervisor Record Press Name Role Phone Laney Dunaway MD Primary Care Provider Zuleika Fields MD Primary Care Provider Laney Mcneil MD Primary Care Provider Piotr Vanessa PA-C Primary Care Provider [phone] Hilda Wilkins MD [facility] Reyes Emanuel MD Primary Care Provider [phone] Reason for Visit * Reason Onset Date Comments Appointment-Internal Referral 06/13/2015 ysiatry Encounter Details Date Type Department Care Team Description 06/13/2015 Telephone Physiatry - [address] [phone] Aston Baugh DO Appointment-Internal Referral (Physiatry) Social History Tobacco Use Types Packs/Day Years [...] encounter Miscellaneous Notes * Telephone Encounter - Tierra Sanders - 06/13/2015 2:31 PM EST Correction, patient was refer to Physiatry not Orthopedics. Will call patient. Unfortunately there is no cancellation list. * Telephone Encounter - Leda Sanchez PA-C - 06/13/2015 2:29 PM EST Okay to wait please place on cancellation list if there is one * Telephone Encounter - Tierra Sanders - 06/13/2015 2:24 PM EST Patient was referred to Orthopedics regarding: Patient requesting Dr. Baugh and is an employee please ask about seeing her sooner Reason for referral: frozen left shoulder; request injection Priority: 1-2 weeks Checked with nurse and there is no available within time frame, next available is 08/05/15. Please advise if ok to wait or refer externally. documented in this encounter Plan of Treatment Not on file documented as of this encounter Visit Diagnoses Not on filedocumented in this encounter Care Teams Supervisor Record Press Relationship Specialty Start Date End Date Laney Dunaway MD PCP - General Internal Medicine 07/13/11 08/08/15 Zuleika Mir MD PCP - General Internal Medicine 08/09/15 09/27/15 Laney Dunaway MD PCP - General 09/28/15 10/10/20 Piotr Osorio PA-C [address] [place] [address] PCP - General Internal Medicine 10/11/20 10/28/22 Reyes Emanuel MD [address] [place] [address] PCP - General Internal Medicine 10/29/22 Hilda Wilkins MD [address] [place] [address] Specialist Infectious Disease 02/01/22 documented as of this encounter
--- OUTSIDE RECORDS SUMMARY | 2024-10-09 01:04 | XMS_ITS | Encounter Summary ---
Author Organization [facility] Address [address] [place] [address] Care Team Providers Care Kai [place] Name Role Phone Laney Dunaway MD Primary Care Provider Piotr Vanessa PA-C Primary Care Provider [phone] Hilda Wilkins MD Unavailable Unavailable Reyes Emanuel MD Primary Care Provider [phone] Reason for Visit * Reason Comments E-prescribe Rx Request Encounter Details Date Type Department Care Team Description 06/08/2019 Refill Physiatry - [address] [address] Aston Baugh DO E-prescribe Rx Request Social History Tobacco Use [...] encounter Miscellaneous Notes * Telephone Encounter - Helga Carr M.A. - 06/08/2019 8:13 AM EST Last ov 10/09/18 Last script 10/09/18 No future ov documented in this encounter Plan of Treatment Not on file documented as of this encounter Visit Diagnoses Diagnosis Fibromyalgia Mylagia and myositis, unspecified Bilateral shoulder pain, unspecified chronicity documented in this encounter Care Teams Kai [place] Relationship Specialty Start Date End Date Laney Dunaway MD PCP - General 09/28/15 10/10/20 Piotr Osorio PA-C [address] [place] [address] PCP - General Internal Medicine 10/11/20 10/28/22 Reyes Emanuel MD [address] [place] [address] PCP - General Internal Medicine 10/29/22 Hilda Wilkins MD [address] [place] [address] Specialist Infectious Disease 02/01/22 documented as of this encounter
--- OUTSIDE RECORDS SUMMARY | 2024-10-09 01:04 | XMS_ITS | Encounter Summary ---
Author Organization [facility] Address [address] [place] [address] Care Team Providers Care Banquet Waiter/Waitress Name Role Phone Laney Dunaway MD Primary Care Provider Zuleika Fields MD Primary Care Provider Laney Mcneil MD Primary Care Provider Piotr Vanessa PA-C Primary Care Provider [phone] Hilda Wilkins MD [facility] Reyes Emanuel MD Primary Care Provider [phone] Encounter Details Date Type Department Care Team Description 05/18/2013 Chimney Mechanic Report Medical Records [address] [place] [address] Deyanira Mcintyre NP Social History Tobacco Use Types Packs/Day Years [...] on filedocumented in this encounter Care Teams Banquet Waiter/Waitress Relationship Specialty Start Date End Date Laney Dunaway MD PCP - General Internal Medicine 07/13/11 08/08/15 Zuleika Mir MD PCP - General Internal Medicine 08/09/15 09/27/15 Laney Dunaway MD PCP - General 09/28/15 10/10/20 Piotr Osorio PA-C [address] [place] [address] PCP - General Internal Medicine 10/11/20 10/28/22 Reyes Emanuel MD [address] [place] [address] PCP - General Internal Medicine 10/29/22 Hilda Wilkins MD [address] [place] [address] Specialist Infectious Disease 02/01/22 documented as of this encounter
--- OUTSIDE RECORDS SUMMARY | 2024-10-09 01:04 | XMS_ITS | Encounter Summary ---
Author Organization [facility] Address [address] [place] [address] Care Team Providers Care Junior Accounting Clerk Name Role Phone Hilda Wilkins MD Unavailable Unavailable Reyes Emanuel MD Primary Care Provider [phone] Encounter Details Date Type Department Care Team Description 03/16/2024 Orders Only Adult Medicine [address] [phone] Reyes Emanuel MD [address] [place] [address] [phone] Social History Tobacco Use Types Packs/Day Years [...] on filedocumented in this encounter Care Teams Junior Accounting Clerk Relationship Specialty Start Date End Date Reyes Emanuel MD [address] [place] [address] [phone] PCP - General Internal Medicine 10/29/22 Hilda Wilkins MD Specialist Infectious Disease 02/01/22 documented as of this encounter
--- OUTSIDE RECORDS SUMMARY | 2024-10-09 01:04 | XMS_ITS | Encounter Summary ---
Author Organization [facility] Address [address] [place] [address] Care Team Providers Care Pharmacy Technician Name Role Phone Laney Dunaway MD Primary Care Provider Zuleika Fields MD Primary Care Provider Laney Mcneil MD Primary Care Provider Piotr Vanessa PA-C Primary Care Provider [phone] Hilda Wilkins MD [facility] Reyes Emanuel MD Primary Care Provider [phone] Encounter Details Date Type Department Care Team Description 06/24/2014 Block Splitter Operator Report Medical Records [address] [place] [address] Hilda Wilkins MD Social History Tobacco Use Types Packs/Day [...] on filedocumented in this encounter Care Teams Pharmacy Technician Relationship Specialty Start Date End Date Laney Dunaway MD PCP - General Internal Medicine 07/13/11 08/08/15 Zuleika Mir MD PCP - General Internal Medicine 08/09/15 09/27/15 Laney Dunaway MD PCP - General 09/28/15 10/10/20 Piotr Osorio PA-C [address] [place] [address] PCP - General Internal Medicine 10/11/20 10/28/22 Reyes Emanuel MD [address] [place] [address] PCP - General Internal Medicine 10/29/22 Hilda Wilkins MD [address] [place] [address] Specialist Infectious Disease 02/01/22 documented as of this encounter
--- OUTSIDE RECORDS SUMMARY | 2024-10-09 01:04 | XMS_ITS | Encounter Summary ---
Author Organization [facility] Address [address] [place] [address] Care Team Providers Care Salesperson Fashion Accessories Name Role Phone Hilda Wilkins MD Unavailable Unavailable Reyes Emanuel MD Primary Care Provider [phone] Encounter Details Date Type Department Care Team Description 04/01/2024 Orders Only Pulmonology - Industry [address] [id number] Kassandra Fajardo MD [address] [phone] Multiple fractures (Primary Dx); Bone pain Social History Tobacco Use Types Packs/Day Years [...] as of this encounter Plan of Treatment Scheduled Orders Name Type Priority Associated Diagnoses Orde r Schedule IMMUNOFIX ELEC SERUM/COMPONENT Lab Routine Multiple fractures Bone pain Expected: 04/01/2024, Expires: 04/01/2025 documented as of this encounter Visit Diagnoses Diagnosis Multiple fractures- Primary Closed fracture of unspecified bone Bone pain Disorder of bone and cartilage, unspecified documented in this encounter Care Teams Salesperson Fashion Accessories Relationship Specialty Start Date End Date Reyes Emanuel MD [address] [place] [id number] PCP - General Internal Medicine 10/29/22 Hilda Wilkins MD Specialist Infectious Disease 02/01/22 documented as of this encounter
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
--- OUTSIDE RECORDS SUMMARY | 2024-10-09 01:04 | XMS_ITS | Encounter Summary ---
Author Organization [facility] Address [address] [place] [address] Care Team Providers Care Coding Support Specialist Name Role Phone Hilda Wilkins MD Unavailable Unavailable Reyes Emanuel MD Primary Care Provider [phone] Encounter Details Date Type Department Care Team Description 02/14/2024 Orders Only Adult Medicine [address] [phone] Reyes Emanuel MD [address] [place] [address] [phone] Social History Tobacco Use Types Packs/Day Years [...] on filedocumented in this encounter Care Teams Coding Support Specialist Relationship Specialty Start Date End Date Reyes Emanuel MD [address] [place] [address] [phone] PCP - General Internal Medicine 10/29/22 Hilda Wilkins MD Specialist Infectious Disease 02/01/22 documented as of this encounter
--- OUTSIDE RECORDS SUMMARY | 2024-10-09 01:04 | XMS_ITS | Encounter Summary ---
Author Organization [facility] Address [address] [place] [address] Care Team Providers Care Director Medical Safety Name Role Phone Piotr Osorio PA-C Primary Care Provider [phone] Hilda Wilkins MD Unavailable Unavailable Reyes Emanuel MD Primary Care Provider [phone] Reason for Visit * Reason Onset Date Comments refill request 11/13/2021 Encounter Details Date Type Department Care Team Description 11/13/2021 Refill Adult Medicine [address] [phone] Piotr Osorio PA-C [address] [place] [address] [phone] refill request Social History Tobacco Use Types [...] on filedocumented in this encounter Care Teams Director Medical Safety Relationship Specialty Start Date End Date Piotr Osorio PA-C [address] [place] [address] [phone] PCP - General Internal Medicine 10/11/20 10/28/22 Reyes Emanuel MD [address] [place] [phone] PCP - General Internal Medicine 10/29/22 Hilda Wilkins MD [address] [place] [address] Specialist Infectious Disease 02/01/22 documented as of this encounter
--- OUTSIDE RECORDS SUMMARY | 2024-10-09 01:04 | XMS_ITS | Encounter Summary ---
Author Organization [facility] Address [address] [place] [address] Care Team Providers Care Contract Administration Specialist Name Role Phone Laney Dunaway MD Primary Care Provider Piotr Vanessa PA-C Primary Care Provider [phone] Hilda Wilkins MD Unavailable Unavailable Reyes Emanuel MD Primary Care Provider [phone] Encounter Details Date Type Department Care Team Description 02/24/2020 Hospital Medical Records [address] [place] [phone] Jose Garcia MD Social History Tobacco Use [...] on filedocumented in this encounter Care Teams Contract Administration Specialist Relationship Specialty Start Date End Date Laney Dunaway MD PCP - General 09/28/15 10/10/20 Piotr Osorio PA-C [address] [place] [id number] PCP - General Internal Medicine 10/11/20 10/28/22 Reyes Emanuel MD [address] [place] [address] PCP - General Internal Medicine 10/29/22 Hilda Wilkins MD [address] [place] [address] Specialist Infectious Disease 02/01/22 documented as of this encounter
--- NOTE | 2024-10-09 01:05 | MHC.EDTECH ---
at this time this performed an EKG on the pt and handed EKG report to the provider
[2024-10-09 01:09] LABS: Procalcitonin 0.16 ng/mL; Thyroid Stimulating Hormone 1.81 uIU/mL (0.32-4.0)
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
[2024-10-09 02:10] LABS: Appearance Urine Clear; Color Urine Yellow; Glucose Urine UA Negative (Negative); Leukocyte Esterase Urine Negative (Negative); Nitrite Urine Negative (Negative); PH 6.5 (5.0-9.0); Urine Blood Negative (Negative); Urine Ketones Negative (Negative); Urine Protein Negative (Neg-Trace)
[2024-10-09] MEDS: Acetaminophen 1,000 MG/100 ML PIGGYBACK 400 MG IV (02:11)
[2024-10-09] MEDS: Magnesium Sulfate/H2O 2 GM/50 ML PIGGYBACK IV (02:11)
[2024-10-09 02:52] LABS: B Type Natriuretic Peptide 74 pg/mL (<100)
[2024-10-09] MEDS: Lactated Ringers 1,000 ML 100 ML IVCONT ×3 (05:37→16:12)
[2024-10-09 05:56] LABS: Hematocrit 21.1 % (37.0-47.0); Mean Corpuscular HGB Conc 32.7 g/dl (31.0-35.0); Mean Corpuscular Hemoglobin 29.4 pg (27.0-33.0); Mean Corpuscular Volume 89.8 fL (80.0-98.0); Mean Platelet Volume 10.7 fL (9.4-12.3); NRBC Pct Auto 3.1 /100WBC (0.0-0.2); Platelet Count 89 X10*3/uL (160-400); Red Blood Count 2.35 X10*6/uL (4.20-5.50); Red Cell Distribution Width 16.1 % (11.0-16.0); WBC ABN SCTR FOR CBC 1
[2024-10-09 06:05] LABS: Hemoglobin 6.9 g/dl (12.0-16.0); White Blood Count 0.7 X10*3/uL (4.8-10.8)
[2024-10-09 06:13] LABS: Alanine Aminotransferase 21 U/L (0-31); Albumin Level 2.9 g/dL (3.5-5.0); Anion Gap 13 (12-20); Aspartate Amino Transferase 26 U/L (5-31); Bilirubin Total 0.3 mg/dL (0.0-1.0); Blood Urea Nitrogen 13 mg/dL (9-16); Calcium 8.1 mg/dL (8.4-10.2); Carbon Dioxide 24 mmol/L (22-29); Chloride 107 mmol/L (96-108); Creatinine Clr Calc Pharmacy 68.2; Estimated Glomerular Filt Rate > 60; Glucose Random 82 mg/dL (60-115); Potassium 3.6 mmol/L (3.3-5.1); Sodium 140 mmol/L (135-145); Total Protein 4.5 g/dL (6.5-8.0)
[2024-10-09 06:23] LABS: Alkaline Phosphatase 73 U/L (39-117)
[2024-10-09 06:31] LABS: Influenza A PCR NEGATIVE (Negative); Influenza B PCR NEGATIVE (Negative); Resp Syncy Virus RNA Qual PCR NEGATIVE (Negative); SARS COV2 PCR INHOUSE NEGATIVE (Negative)
--- NOTE | 2024-10-09 06:49 | PHA.PROG ---
Admission Date/Time: October 09, 2024 01:14 Indication: other Weight in k.3 kg Serum Creatinine - Last 168 Hours 10/09/24 10/09/24 00:16 05:40 Creatinine 1.06 0.84 Estimated CrCl and GFR - Last 168 Hours 10/09/24 10/09/24 00:16 05:40 Estim Creat Clear Calc 54.1 68.2 Estimated GFR 52 > 60 Vancomycin Loading Dose: 1500 Current Vancomycin Dosing Regimen: 1500 q 24h Vancomycin Monitoring using AUC goal of 400 - 600 range with trough as surrogate marker: 515 Date and Time for next Vancomycin Level to be drawn: 10/10 @ 2100 Pharmacist Comments on Vancomycin Plan: Vancomycin dosing will take advantage of [employer] as a clinical decision support tool that uses Bayesian modeling to calculate individual patient's pharmacokinetic parameters and forecast the patient's drug concentration time course with the target goal AUC 24 range of 400 - 600 mg/L/hr.
[2024-10-09 08:15] LABS: Band Neutrophils Percent 10 % (3-5); Basophils Percent Manual 2 % (0-2); Lymphocytes Absolute Manual 0.1 X10*3/uL (1.2-4.9); Lymphocytes Percent Manual 14 % (20-40); Monocytes Percent Manual 1 % (2-11); Neutrophils Absolute Manual 0.6 X10*3/uL (2.0-8.3); Neutrophils Percent Manual 73 % (45-73); Nucleated Red Blood Cells 2 /100WBC (0-0)
[2024-10-09 08:18] LABS: Burr Cells 1+ (0-2) /OIF; Ovalocytes 1+ (5-14) /OIF; Platelet Estimate DECREASED (NORMAL); Platelet Morphology Comment NORMAL; RBC Morphology NOTED; Schistocytes 1+ (0-2) /OIF; Tear Drop Cells 1+ (0-2) /OIF
[2024-10-09] MEDS: cefEPime HCl/D5W 2 GM/50 ML PIGGYBACK IV ×2 (08:42→20:12)
[2024-10-09] MEDS: Enoxaparin Sodium 40 MG/0.4 ML SYRINGE SUBCUT (08:43)
--- NOTE | 2024-10-09 08:46 | PHA.MEDREC ---
Pharmacy Consult ? Medication Reconciliation Pharmacy has completed the medication reconciliation. Spoke to patient to confirm medication list. Per patient, she no longer takes alendronate, hydroxyzine nor meloxicam. She takes citalopram 20 mg daily, dexamethasone 40 mg every saturday, Revlimid 25 mg at bedtime and lorazepam 0.5 mg bid prn. She still takes cephalexin 500 mg bid as prophylaxis and aspirin 81 mg daily. Last dose of medications was yesterday 10/08/24.
--- NOTE | 2024-10-09 08:54 | MHC.CLN ---
NUTRITION CONSULT ADDED NEUTROPENIC TO DIET ORDER.
[2024-10-09] MEDS: Acetaminophen 325 MG TABLET 650 MG PO ×2 (10:43→17:30)
[2024-10-09] MEDS: ondansetron HCL 4 MG/2 ML VIAL IVPUSH (10:56)
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
--- NOTE | 2024-10-09 13:57 | P.CNHO_ITS ---
Subjective - Subjective Chief complaint: Fever, diarrhea Patient: new to practice Consult date: 10/09/24 Primary Care Provider: Reyes Emanuel III, MD [employer] Utilized?: No - Maldivian Speaking HPI - Consult Narrative Reason for consult: Multiple myeloma, on chemotherapy, neutropenic fever Narrative: Junie Montez is a 64 year old female admitted for neutropenic fever. She was diagnosed with multiple myeloma in July 2024 and has been receiving treatment for the last 2 months at [facility] under the care of Dr. Townsend. She was treated yesterday, 10/08/2024. She felt a left heel weak and tired but in the middle of the night she got up with chills and a fever of 102 degrees F. She also experienced some diarrhea and felt nauseous. She therefore called the ambulance and she was brought to [facility]. She has been started on antibiotics and is on neutropenic precautions. She is feeling better already. She denies any headache, dizziness, cough or sore throat. No dysuria, hematuria, hematochezia or melena. Chest x-ray suspicious for pneumonitis and pulmonary edema with lytic changes indicating possible metastases. She is aware that she has anemia. So far she received 2 units blood transfusion at [facility]. Three weeks ago she was admitted to [facility] for pneumonia and was treated with antibiotics. She denies any other major medical problems. Review of Systems - Constitutional Reports as per HPI, Reports fatigue, Reports poor appetite - Cardiovascular Reports no additional cardiovascular complaints - Respiratory Reports no additional respiratory complaints - Gastrointestinal Reports no additional gastrointestinal complaints [facility] Medical History: Medical History (Last Updated 10/09/24 @ 02:00 by PATEL Almanzar) Hemorrhoids Melanoma Multiple myeloma Functional capacity: independent ambulation Social History: Social History (Last Reviewed 10/09/24 @ 02:01 by PATEL Almanzar) Alcohol History Details: 1. How often do you have a drink containing alcohol?: a. Never 3. How often do you have six or more drinks on one occasion?: a. Never AUDIT-C Alcohol total score: 0 Tobacco History: Patient Tobacco Use Status: Former Tobacco user Smoked in Last 30 Days: No Substance Use History: Use of substances other than those prescribed or required for medical reasons : No Advance Directives: Advance Directives: No Advance Directives Information Provided: Yes Homicidal Assessment: Do you have a plan to hurt others: No Plan Nutrition Assessment: Nutrition Risks: No Nutritional Risk Patient : No - Travel History Ebola Risk: Travel/Contact With Anyone From Affected Area/s: No Has Patient Experienced Ebola Symptoms: No Home Medications and Allergies Current Medications: Current Medications Acetaminophen (Acetaminophen 325 Mg Tablet) 650 mg PO Q6H PRN PRN Reason: Pain, Mild 1-3,fever,headache Last Admin: 10/09/24 10:43 Dose: 650 mg Calcium Carbonate (Calcium Carbonate 750 Mg Tab.Chew) 750 mg PO Q4H PRN PRN Reason: Heartburn Enoxaparin Sodium (Enoxaparin Sodium 40 Mg/0.4 Ml Syringe) 40 mg SUBCUT Q24H [facility] Last Admin: 10/09/24 08:43 Dose: 40 mg Hydrocortisone (Hydrocortisone 100 Mg/60 Ml Enema) 100 mg [place] DAILY [facility] Last Admin: 10/09/24 10:37 Dose: Not Given Lactated Ringer's (Lr) 1,000 mls @ 100 mls/hr IVCONT .Q10H [facility] Last Admin: 10/09/24 05:37 Dose: 100 mls/hr Cefepime HCl (Maxipime) 2 gm in 50 mls @ 100 mls/hr IV Q12H [facility] Last Infusion: 10/09/24 09:37 Dose: Infused Vancomycin HCl 1,500 mg/ (Sodium Chloride) 500 mls @ 333.333 mls/hr IV Q24H [facility] Magnesium Hydroxide (Milk Of Magnesia 30 Ml Oral.Susp) 30 ml PO DAILY PRN PRN Reason: Constipation Melatonin (Melatonin 3 Mg Tablet) 6 mg PO BEDTIME PRN PRN Reason: Insomnia Ondansetron HCl (Ondansetron Hcl 4 Mg/2 Ml Vial) 4 mg IVPUSH Q8H PRN PRN Reason: Nausea and Vomiting Last Admin: 10/09/24 10:56 Dose: 4 mg Pharmacy Consult (Consult Rx Vancomycin Dosing) 1 each MISCELLANE DAILY PRN PRN Reason: Consult order Senna (Sennosides 8.6 Mg Tablet) 17.2 mg PO BEDTIME [facility] Sodium Chloride (0.9 % Sodium Chloride Flush 3 Ml Syringe) 3 ml IVFLUSH QSHIFT [facility] Last Admin: 10/09/24 08:43 Dose: Not Given Home Medications ?Medication ?Instructions ?Recorded ?Confirmed ?Type amlodipine 5 mg tablet 5 mg PO DAILY 10/09/24 10/09/24 History aspirin 81 mg tablet,delayed 81 mg PO DAILY 10/09/24 10/09/24 History release atorvastatin 20 mg tablet 20 mg PO DAILY 10/09/24 10/09/24 History cephalexin 500 mg capsule 500 mg PO BID 10/09/24 10/09/24 History citalopram 10 mg tablet 20 mg PO DAILY 10/09/24 10/09/24 History dexamethasone 4 mg tablet 40 mg PO MO 10/09/24 10/09/24 History folic acid 1 mg tablet 1 mg PO DAILY 10/09/24 10/09/24 History lenalidomide 25 mg capsule 25 mg PO BEDTIME 10/09/24 10/09/24 History (Revlimid) lorazepam 0.5 mg tablet 0.5 mg PO BID PRN Anxiety 10/09/24 10/09/24 History multivitamin (One Daily 1 tab PO DAILY 10/09/24 10/09/24 History Multivitamin tablet) potassium chloride 10 mEq 10 meq PO DAILY 10/09/24 10/09/24 History tablet,extended release thiamine HCl (vitamin B1) 100 mg 100 mg PO DAILY 10/09/24 10/09/24 History tablet tramadol 50 mg tablet 50 mg PO TID PRN moderate pain 10/09/24 10/09/24 History Allergies Allergy/AdvReac Type Severity Reaction Status Date / Time No Known Allergies Allergy Verified 10/09/24 00:17 Physical Exam Vital signs: Vital Signs Temp 98.5 F 10/09/24 13:42 Pulse 76 10/09/24 13:42 Resp 19 10/09/24 13:42 BP 128/77 10/09/24 13:42 Pulse Ox 94 10/09/24 13:42 O2 Del Method Room Air 10/09/24 13:42 O2 Flow Rate 2 10/09/24 07:07 Intake & Output 10/08/24 10/09/24 10/09/24 18:59 06:59 18:59 Intake Total 2628 50 / 50 Balance 2628 50 / 50 Intake: Intake, IV Amount 2628 50 / 50 Acetaminophen 1,000 mg In 100 100 / 100 ml @ 400 mls/hr IV ONCE ONE Rx# :[id number] Lactated Ringers 1,929 ml @ 1929 / 1929 1929 mls/hr IV .Q1H ONE Rx#: [id number] Magnesium Sulfate/H2O 2 gm In 50 / 50 50 ml @ 25 mls/hr IV ONCE ONE Rx#:[id number] Piperacillin Sodium/Tazobactam 50 / 50 3.375 gm In 0.9 % Sodium Chloride 50 ml @ 100 mls/hr IV ONCE ONE Rx#:[id number] cefEPime HCl/D5W 2 gm In 50 ml 50 / 50 @ 100 mls/hr IV Q12H [facility] Rx#: [id number] vancomycin HCL 1,500 mg In 0.9 500 / 500 % Sodium Chloride 500 ml @ 333. 333 mls/hr IV ONCE ONE Rx#: [id number] Other: Weight 64.3 kg Weight 64.3 kg - Constitutional Present: no acute distress, average body habitus - Routine HEENT Exam Head: Present: normal inspection Eye: Present: EOMI, PERRL - Routine Neck Exam Present: supple. Absent: lymphadenopathy - Routine Respiratory Exam Present: CTAB. Absent: accessory muscle use - Routine Cardiovascular Exam Cardiovascular: Present: RRR, S1, S2 - Routine Extremities Exam Absent: pedal edema - Routine Skin Exam Present: intact. Absent: cyanosis - Routine Neurological Exam Present: alert, oriented X3 Hem/Onc Consult Result - Labs CBC & Chem 7: 10/09/24 05:40 10/09/24 05:40 Labs: Short CBC 10/09/24 10/09/24 Range/Units 00:16 05:40 WBC 0.8 L* 0.7 L* (4.8-10.8) X10*3/uL Hgb 8.8 L 6.9 L* D (12.0-16.0) g/dl Hct 25.6 L 21.1 L (37.0-47.0) % Plt Count 124 L 89 L D (160-400) X10*3/uL BMP 10/09/24 10/09/24 00:16 05:40 Sodium 140 140 Potassium 3.8 3.6 Chloride 107 107 Carbon Dioxide 20 L 24 BUN 16 13 Creatinine 1.06 0.84 Calcium 8.9 8.1 L D Liver Function 10/09/24 10/09/24 Range/Units 00:16 05:40 Total Bilirubin 0.3 0.3 (0.0-1.0) mg/dL AST 35 H 26 (5-31) U/L ALT 24 21 (0-31) U/L Alkaline Phosphatase 95 73 (39-117) U/L Albumin 3.6 2.9 L (3.5-5.0) g/dL Urine 10/09/24 Range/Units 01:53 Urine Color Yellow Urine Appearance Clear Urine pH 6.5 (5.0-9.0) Ur Specific [place] 1.010 (1.005-1.025) Urine Protein Negative (Neg-Trace) mg/dL Urine Glucose (UA) Negative (Negative) mg/dL Assessment and Plan Patient Active problem list reviewed?: Yes (1) Multiple myeloma Status: Acute Assessment and plan: 1. This is a pleasant 64-year-old woman with history of multiple myeloma that was diagnosed in July 2024 and is under treatment at [facility]. Details of her care are not available but as per history she was started on treatment with daratumumab, Velcade, Revlimid and dexamethasone about a month ago. She was admitted beginning of September with pneumonia. She is currently admitted for possible recurrent pneumonia and neutropenic fever. ID consult is pending. She is on cefepime and vancomycin. Blood cultures so far are negative. She is pancytopenic and requires blood transfusion for anemia. She has received daratumumab, cross matching of blood is going to be problematic. Daratumumab binds to CD38 on reagent red blood cells used in antibody screening and cross matching. This causes owen reactivity masking clinically significant alloantibodies. Our blood bank has been in touch with [facility] and have obtained the baseline type and antibody screen. We have also been in touch with [facility] cross and are in the process of obtaining least incompatible blood for transfusion. Patient has been made aware of the above. Thank you for the consultation. - Time Spent With Patient Time Spent with Patient (in minutes): 25
--- NOTE | 2024-10-09 15:21 | PM.EVENT ---
Event Note Date of Service: 10/09/24 Event Note: Chart reviewed patient examined. Agree with H&P and plan as outlined. Discussed with oncology. Plan as ordered Time Spent With Patient Time: Total time managing care of this patient today ____ minutes.
[2024-10-09] MEDS: 0.9 % Sodium Chloride Flush 3 ML SYRINGE IVFLUSH ×2 (17:32→23:44)
[2024-10-09 21:28] LABS: CDiff Gene PCR POSITIVE (Negative)
[2024-10-09 22:05] LABS: CDIFF Internal ctrl Dots and bkg OK (V); CDiff Toxin Negative (Negative)
--- NOTE | 2024-10-09 23:59 | P.CNID_ITS ---
History of Present Illness Data of Consult Service Date: 10/09/24 Requesting physician: Zeb Mireles Primary Care Provider: Reyes Emanuel III, MD HPI Reason for consult: neutropenia and fever She presents with fever and no other syptoms. She has cultures pending= [facility] Past Medical History Medical History (Updated 10/09/24 @ 14:18 by Sonam Fish MD) Hemorrhoids Multiple myeloma Melanoma Social History Social History Household Members: None Housing: House Do you presently have visiting nurse or other home services: No Patient Tobacco Use Status: Former Tobacco user Tobacco use type: Cigarette e-Cigarette/Vaping Use: Never Used Second Hand Smoke Exposure: No Travel History Ebola Risk: Travel/Contact With Anyone From Affected Area/s: No Has Patient Experienced Ebola Symptoms: No Meds Allergies Allergy/AdvReac Type Severity Reaction Status Date / Time No Known Allergies Allergy Verified 10/09/24 00:17 Active Medications: Current Medications Acetaminophen (Acetaminophen 325 Mg Tablet) 650 mg PO Q6H PRN PRN Reason: Pain, Mild 1-3,fever,headache Last Admin: 10/09/24 17:30 Dose: 650 mg Calcium Carbonate (Calcium Carbonate 750 Mg Tab.Chew) 750 mg PO Q4H PRN PRN Reason: Heartburn Enoxaparin Sodium (Enoxaparin Sodium 40 Mg/0.4 Ml Syringe) 40 mg SUBCUT Q24H [facility] Last Admin: 10/09/24 08:43 Dose: 40 mg Hydrocortisone (Hydrocortisone 100 Mg/60 Ml Enema) 100 mg [place] DAILY [facility] Last Admin: 10/09/24 10:37 Dose: Not Given Lactated Ringer's (Lr) 1,000 mls @ 100 mls/hr IVCONT .Q10H [facility] Last Admin: 10/09/24 16:12 Dose: 100 mls/hr Cefepime HCl (Maxipime) 2 gm in 50 mls @ 100 mls/hr IV Q12H [facility] Last Infusion: 10/09/24 20:45 Dose: Infused Vancomycin HCl 1,500 mg/ (Sodium Chloride) 500 mls @ 333.333 mls/hr IV Q24H [facility] Last Admin: 10/09/24 23:44 Dose: 333.33 mls/hr Magnesium Hydroxide (Milk Of Magnesia 30 Ml Oral.Susp) 30 ml PO DAILY PRN PRN Reason: Constipation Melatonin (Melatonin 3 Mg Tablet) 6 mg PO BEDTIME PRN PRN Reason: Insomnia Ondansetron HCl (Ondansetron Hcl 4 Mg/2 Ml Vial) 4 mg IVPUSH Q8H PRN PRN Reason: Nausea and Vomiting Last Admin: 10/09/24 10:56 Dose: 4 mg Pharmacy Consult (Consult Rx Vancomycin Dosing) 1 each MISCELLANE DAILY PRN PRN Reason: Consult order Senna (Sennosides 8.6 Mg Tablet) 17.2 mg PO BEDTIME [facility] Last Admin: 10/09/24 20:13 Dose: Not Given Sodium Chloride (0.9 % Sodium Chloride Flush 3 Ml Syringe) [facility] Last Admin: 10/09/24 23:44 Dose: 3 ml Home Medications ?Medication ?Instructions ?Recorded ?Confirmed ?Last Taken ?Type amlodipine 5 mg tablet 5 mg PO DAILY 10/09/24 10/09/24 10/08/24 History aspirin 81 mg tablet,delayed 81 mg PO DAILY 10/09/24 10/09/24 10/08/24 History release atorvastatin 20 mg tablet 20 mg PO DAILY 10/09/24 10/09/24 10/08/24 History cephalexin 500 mg capsule 500 mg PO BID 10/09/24 10/09/24 10/08/24 History citalopram 10 mg tablet 20 mg PO DAILY 10/09/24 10/09/24 10/08/24 History dexamethasone 4 mg tablet 40 mg PO MO 10/09/24 10/09/24 10/05/24 History folic acid 1 mg tablet 1 mg PO DAILY 10/09/24 10/09/24 10/08/24 History lenalidomide 25 mg capsule 25 mg PO BEDTIME 10/09/24 10/09/24 10/08/24 History (Revlimid) lorazepam 0.5 mg tablet 0.5 mg PO BID PRN Anxiety 10/09/24 10/09/24 Unknown History multivitamin (One Daily 1 tab PO DAILY 10/09/24 10/09/24 10/08/24 History Multivitamin tablet) potassium chloride 10 mEq 10 meq PO DAILY 10/09/24 10/09/24 10/08/24 History tablet,extended release thiamine HCl (vitamin B1) 100 mg 100 mg PO DAILY 10/09/24 10/09/24 10/08/24 History tablet tramadol 50 mg tablet 50 mg PO TID PRN moderate pain 10/09/24 10/09/24 Unknown History Physical Exam 2 Vital Signs: Vital Signs: Last Vital Signs Temp 98.2 F 10/09/24 23:38 Pulse 72 10/09/24 23:38 Resp 16 10/09/24 23:38 BP 136/72 10/09/24 23:38 Pulse Ox 93 10/09/24 23:38 O2 Del Method Room Air 10/09/24 23:38 O2 Flow Rate 2 10/09/24 07:07 BMI result Body Mass Index 21.6 Results Labs 10/09/24 05:40 10/09/24 05:40 Labs: Short CBC 10/09/24 10/09/24 Range/Units 00:16 05:40 WBC 0.8 L* 0.7 L* (4.8-10.8) X10*3/uL Hgb 8.8 L 6.9 L* D (12.0-16.0) g/dl Hct 25.6 L 21.1 L (37.0-47.0) % Plt Count 124 L 89 L D (160-400) X10*3/uL BMP 10/09/24 10/09/24 00:16 05:40 Sodium 140 140 Potassium 3.8 3.6 Chloride 107 107 Carbon Dioxide 20 L 24 BUN 16 13 Creatinine 1.06 0.84 Calcium 8.9 8.1 L D Liver Function 10/09/24 10/09/24 Range/Units 00:16 05:40 Total Bilirubin 0.3 0.3 (0.0-1.0) mg/dL AST 35 H 26 (5-31) U/L ALT 24 21 (0-31) U/L Alkaline Phosphatase 95 73 (39-117) U/L Albumin 3.6 2.9 L (3.5-5.0) g/dL Urine 10/09/24 Range/Units 01:53 Urine Color Yellow Urine Appearance Clear Urine pH 6.5 (5.0-9.0) Ur Specific [place] 1.010 (1.005-1.025) Urine Protein Negative (Neg-Trace) mg/dL Urine Glucose (UA) Negative (Negative) mg/dL
--- NOTE | 2024-10-10 00:02 | W.PM.IDCN ---
History of Present Illness Data of Consult Service Date: 10/09/24 Primary Care Provider: Reyes Emanuel III, MD [facility] Past Medical History Medical History (Updated 10/09/24 @ 14:18 by Sonam Fish MD) Hemorrhoids Multiple myeloma Melanoma Social History Social History Household Members: None Housing: House Do you presently have visiting nurse or other home services: No Patient Tobacco Use Status: Former Tobacco user Tobacco use type: Cigarette e-Cigarette/Vaping Use: Never Used Second Hand Smoke Exposure: No Travel History Ebola Risk: Travel/Contact With Anyone From Affected Area/s: No Has Patient Experienced Ebola Symptoms: No Meds Allergies Allergy/AdvReac Type Severity Reaction Status Date / Time No Known Allergies Allergy Verified 10/09/24 00:17 Active Medications: Current Medications Acetaminophen (Acetaminophen 325 Mg Tablet) 650 mg PO Q6H PRN PRN Reason: Pain, Mild 1-3,fever,headache Last Admin: 10/09/24 17:30 Dose: 650 mg Calcium Carbonate (Calcium Carbonate 750 Mg Tab.Chew) 750 mg PO Q4H PRN PRN Reason: Heartburn Enoxaparin Sodium (Enoxaparin Sodium 40 Mg/0.4 Ml Syringe) 40 mg SUBCUT Q24H [facility] Last Admin: 10/09/24 08:43 Dose: 40 mg Hydrocortisone (Hydrocortisone 100 Mg/60 Ml Enema) 100 mg [place] DAILY [facility] Last Admin: 10/09/24 10:37 Dose: Not Given Lactated Ringer's (Lr) 1,000 mls @ 100 mls/hr IVCONT .Q10H [facility] Last Admin: 10/09/24 16:12 Dose: 100 mls/hr Cefepime HCl (Maxipime) 2 gm in 50 mls @ 100 mls/hr IV Q12H [facility] Last Infusion: 10/09/24 20:45 Dose: Infused Vancomycin HCl 1,500 mg/ (Sodium Chloride) 500 mls @ 333.333 mls/hr IV Q24H [facility] Last Admin: 10/09/24 23:44 Dose: 333.33 mls/hr Magnesium Hydroxide (Milk Of Magnesia 30 Ml Oral.Susp) 30 ml PO DAILY PRN PRN Reason: Constipation Melatonin (Melatonin 3 Mg Tablet) 6 mg PO BEDTIME PRN PRN Reason: Insomnia Ondansetron HCl (Ondansetron Hcl 4 Mg/2 Ml Vial) 4 mg IVPUSH Q8H PRN PRN Reason: Nausea and Vomiting Last Admin: 10/09/24 10:56 Dose: 4 mg Pharmacy Consult (Consult Rx Vancomycin Dosing) 1 each MISCELLANE DAILY PRN PRN Reason: Consult order Senna (Sennosides 8.6 Mg Tablet) 17.2 mg PO BEDTIME [facility] Last Admin: 10/09/24 20:13 Dose: Not Given Sodium Chloride (0.9 % Sodium Chloride Flush 3 Ml Syringe) [facility] Last Admin: 10/09/24 23:44 Dose: 3 ml Home Medications ?Medication ?Instructions ?Recorded ?Confirmed ?Last Taken ?Type amlodipine 5 mg tablet 5 mg PO DAILY 10/09/24 10/09/24 10/08/24 History aspirin 81 mg tablet,delayed 81 mg PO DAILY 10/09/24 10/09/24 10/08/24 History release atorvastatin 20 mg tablet 20 mg PO DAILY 10/09/24 10/09/24 10/08/24 History cephalexin 500 mg capsule 500 mg PO BID 10/09/24 10/09/24 10/08/24 History citalopram 10 mg tablet 20 mg PO DAILY 10/09/24 10/09/24 10/08/24 History dexamethasone 4 mg tablet 40 mg PO MO 10/09/24 10/09/24 10/05/24 History folic acid 1 mg tablet 1 mg PO DAILY 10/09/24 10/09/24 10/08/24 History lenalidomide 25 mg capsule 25 mg PO BEDTIME 10/09/24 10/09/24 10/08/24 History (Revlimid) lorazepam 0.5 mg tablet 0.5 mg PO BID PRN Anxiety 10/09/24 10/09/24 Unknown History multivitamin (One Daily 1 tab PO DAILY 10/09/24 10/09/24 10/08/24 History Multivitamin tablet) potassium chloride 10 mEq 10 meq PO DAILY 10/09/24 10/09/24 10/08/24 History tablet,extended release thiamine HCl (vitamin B1) 100 mg 100 mg PO DAILY 10/09/24 10/09/24 10/08/24 History tablet tramadol 50 mg tablet 50 mg PO TID PRN moderate pain 10/09/24 10/09/24 Unknown History Physical Exam Vital Signs: Vital Signs: Last Vital Signs Temp 98.2 F 10/09/24 23:38 Pulse 72 10/09/24 23:38 Resp 16 10/09/24 23:38 BP 136/72 10/09/24 23:38 Pulse Ox 93 10/09/24 23:38 O2 Del Method Room Air 10/09/24 23:38 O2 Flow Rate 2 10/09/24 07:07 BMI result Body Mass Index 21.6 Results Labs 10/09/24 05:40 10/09/24 05:40 Labs: Short CBC 10/09/24 10/09/24 Range/Units 00:16 05:40 WBC 0.8 L* 0.7 L* (4.8-10.8) X10*3/uL Hgb 8.8 L 6.9 L* D (12.0-16.0) g/dl Hct 25.6 L 21.1 L (37.0-47.0) % Plt Count 124 L 89 L D (160-400) X10*3/uL BMP 10/09/24 10/09/24 00:16 05:40 Sodium 140 140 Potassium 3.8 3.6 Chloride 107 107 Carbon Dioxide 20 L 24 BUN 16 13 Creatinine 1.06 0.84 Calcium 8.9 8.1 L D Liver Function 10/09/24 10/09/24 Range/Units 00:16 05:40 Total Bilirubin 0.3 0.3 (0.0-1.0) mg/dL AST 35 H 26 (5-31) U/L ALT 24 21 (0-31) U/L Alkaline Phosphatase 95 73 (39-117) U/L Albumin 3.6 2.9 L (3.5-5.0) g/dL Urine 10/09/24 Range/Units 01:53 Urine Color Yellow Urine Appearance Clear Urine pH 6.5 (5.0-9.0) Ur Specific [place] 1.010 (1.005-1.025) Urine Protein Negative (Neg-Trace) mg/dL Urine Glucose (UA) Negative (Negative) mg/dL
--- NOTE | 2024-10-10 00:13 | PM.EVENT ---
Event Note Date of Service: 10/09/24 Event Note: if no bacteremia found fever possibly due to myeloma or virus so as noted if no bacteremia found was stop antibiotics tomorrow and watch cultures and stop IV antibiotics if nothing found. Time Spent With Patient Time: Total time managing care of this patient today ____ minutes.
[2024-10-10 03:15] VITALS: BP 124/58; PULSE 73; RESP 16; TEMP 36.8; O2SAT 93
[2024-10-10] MEDS: Lactated Ringers 1,000 ML 100 ML IVCONT ×2 (04:12→14:29)
[2024-10-10 08:00] VITALS: BP 147/69; PULSE 64; RESP 18; TEMP 36.7; O2SAT 97
[2024-10-10 08:10] LABS: Creatinine Clr Calc Pharmacy 67.4; Estimated Glomerular Filt Rate > 60
--- NOTE | 2024-10-10 08:33 | MHC.CM.PN ---
CM met with Patient at bedside. Patient lives alone in a house, on the second floor, and she is functionally independent. Home/resume chemo @ [facility] is the tentative plan and CM has initiated and will follow for dc planning. PCP is Dr. Reyes Emanuel and Brother will transport to home at time of dc.
[2024-10-10 08:53] LABS: Hematocrit 22.5 % (37.0-47.0); Hemoglobin 7.6 g/dl (12.0-16.0); Mean Corpuscular HGB Conc 33.8 g/dl (31.0-35.0); Mean Corpuscular Hemoglobin 29.6 pg (27.0-33.0); Mean Corpuscular Volume 87.5 fL (80.0-98.0); Mean Platelet Volume 10.5 fL (9.4-12.3); Red Blood Count 2.57 X10*6/uL (4.20-5.50); Red Cell Distribution Width 15.9 % (11.0-16.0)
[2024-10-10 09:01] LABS: Platelet Count 86 X10*3/uL (160-400)
[2024-10-10 09:03] LABS: White Blood Count 0.7 X10*3/uL (4.8-10.8)
[2024-10-10 09:30] LABS: Band Neutrophils Percent 10 % (3-5); Lymphocytes Absolute Manual 0.1 X10*3/uL (1.2-4.9); Lymphocytes Percent Manual 10 % (20-40); Monocytes Percent Manual 2 % (2-11); Neutrophils Absolute Manual 0.6 X10*3/uL (2.0-8.3); Neutrophils Percent Manual 78 % (45-73)
[2024-10-10 09:31] LABS: RBC Morphology NORMAL
[2024-10-10 09:32] LABS: Large Platelet PRESENT; Platelet Estimate SLIGHTLY DECREASED (NORMAL); Platelet Morphology Comment NOTED
[2024-10-10 09:33] LABS: Ovalocytes 2+ (15-30) /OIF
[2024-10-10] MEDS: Hydrocortisone 100 MG/60 ML ENEMA PR (09:44)
[2024-10-10] MEDS: 0.9 % Sodium Chloride Flush 3 ML SYRINGE IVFLUSH ×3 (09:44→20:11)
[2024-10-10] MEDS: cefEPime HCl/D5W 2 GM/50 ML PIGGYBACK IV (09:44)
[2024-10-10 10:29] LABS: Adenovirus F 40/41 Not Detected (Not Detect.); Astrovirus Not Detected (Not Detect.); Campylobacter Not Detected (Not Detect.); Cryptosporidium Not Detected (Not Detect.); Cyclospora cayetanensis Not Detected (Not Detect.); E. coli EAEC Not Detected (Not Detect.); E. coli EPEC Not Detected (Not Detect.); E. coli ETEC Not Detected (Not Detect.); E. coli STEC Not Detected (Not Detect.); Entamoeba histolytica Not Detected (Not Detect.); Giardia lamblia Not Detected (Not Detect.); Norovirus GI/GII Not Detected (Not Detect.); Plesiomonas shigelloides Not Detected (Not Detect.); Rotavirus A Not Detected (Not Detect.); Salmonella Not Detected (Not Detect.); Sapovirus Not Detected (Not Detect.); Shigella sp./EIEC Not Detected (Not Detect.); Vibrio Not Detected (Not Detect.); Vibrio Cholerae Not Detected (Not Detect.); Yersinia enterocolitica Not Detected (Not Detect.)
[2024-10-10 12:00] VITALS: BP 129/63; PULSE 66; RESP 18; TEMP 36.7; O2SAT 97
[2024-10-10] MEDS: Enoxaparin Sodium 40 MG/0.4 ML SYRINGE SUBCUT (12:29)
--- NOTE | 2024-10-10 13:10 | P.PNIM_ITS ---
Subjective Subjective Date of Service: 10/10/24 Interval History: No acute issues overnight. C diff came back positive. Review of Systems Denies chest pain Denies shortness of breath Denies nausea vomiting diarrhea Denies fever chills Physical Exam 2 Vital Signs: Vital Signs: Last Vital Signs Temp 98.0 F 10/10/24 12:00 Pulse 66 10/10/24 12:00 Resp 18 10/10/24 12:00 BP 129/63 10/10/24 12:00 Pulse Ox 97 10/10/24 12:00 O2 Del Method Room Air 10/10/24 12:00 O2 Flow Rate 2 10/09/24 07:07 BMI result Body Mass Index 21.6 Const: Other: Awake alert no acute distress Resp: Other: Clear to auscultation bilaterally no rales rhonchi or wheezes Cardio: Other: No S4; positive S1-S2; no S3 murmurs rubs or gallops GI: Other: Soft nontender nondistended normoactive bowel sounds Extrem: Other: No edema bilaterally Objective Data Active Medications Acetaminophen (Acetaminophen 325 Mg Tablet) 650 mg PO Q6H PRN PRN Reason: Pain, Mild 1-3,fever,headache Last Admin: 10/09/24 17:30 Dose: 650 mg Documented By: SHAHAB Calcium Carbonate (Calcium Carbonate 750 Mg Tab.Chew) 750 mg PO Q4H PRN PRN Reason: Heartburn Enoxaparin Sodium (Enoxaparin Sodium 40 Mg/0.4 Ml Syringe) 40 mg SUBCUT Q24H [facility] Last Admin: 10/10/24 12:29 Dose: 40 mg Documented By: MALA Filgrastim-Sndz (Filgrastim-Sndz 300 Mcg/0.5 Ml Syringe) 300 mcg SUBCUT Q24H [facility] Stop: 10/11/24 14:01 Hydrocortisone (Hydrocortisone 100 Mg/60 Ml Enema) 100 mg MN DAILY [facility] Last Admin: 10/10/24 09:44 Dose: 100 mg Documented By: MALA Lactated Ringer's (Lr) 1,000 mls @ 100 mls/hr IVCONT .Q10H [facility] Last Admin: 10/10/24 09:44 Dose: Not Given Documented By: MALA Non-Admin Reason: IV Running Magnesium Hydroxide (Milk Of Magnesia 30 Ml Oral.Susp) 30 ml PO DAILY PRN PRN Reason: Constipation Melatonin (Melatonin 3 Mg Tablet) 6 mg PO BEDTIME PRN PRN Reason: Insomnia Ondansetron HCl (Ondansetron Hcl 4 Mg/2 Ml Vial) 4 mg IVPUSH Q8H PRN PRN Reason: Nausea and Vomiting Last Admin: 10/09/24 10:56 Dose: 4 mg Documented By: AIDA Senna (Sennosides 8.6 Mg Tablet) 17.2 mg PO BEDTIME [facility] Last Admin: 10/09/24 20:13 Dose: Not Given Documented By: WANDA Non-Admin Reason: pt refused; having loose stools Sodium Chloride (0.9 % Sodium Chloride Flush 3 Ml Syringe) 3 ml IVFLUSH QSHIFT [facility] Last Admin: 10/10/24 09:44 Dose: 3 ml Documented By: MALA Vancomycin HCl (Vancomycin Hcl 125 Mg Capsule) 125 mg PO Q6H [facility] Stop: 10/20/24 13:14 Labs 10/10/24 08:45 10/10/24 06:43 Labs: Laboratory Results - last 24 hr 10/09/24 10/09/24 10/09/24 06:21 12:55 20:21 MCV MCH MCHC RDW Plt Count MPV Absolute Nucleated RBC Nucleated RBC % (auto) Neutrophils % (Manual) Band Neutrophils % Lymphocytes % (Manual) Monocytes % (Manual) Abs Neuts (Manual) Lymphocytes # (Manual) Platelet Estimate Large Platelets Plt Morphology Comment RBC Morphology Ovalocytes Hold Purple Top Estim Creat Clear Calc Estimated GFR Stl C. cayetanensis PCR Not Detected Stool Rotavirus A PCR Not Detected Stl Adenov F 40/41 PCR Not Detected Stool Astrovirus (PCR) Not Detected Stool Campylobacter PCR Not Detected Stool Cryptosporidium PCR Not Detected Stl Sh Tox Pr E STEC PCR Not Detected Stool E coli O157 PCR Not applicable Stl Enterotoxigenic E PCR Not Detected Stool EPEC (PCR) Not Detected Stool EAEC (PCR) Not Detected Stl E. histolytica PCR Not Detected Stool Giardia Lamblia PCR Not Detected Stl P. shigelloides PCR Not Detected Stool Salmonella PCR Not Detected Stool Sapovirus (PCR) Not Detected Stl Shigella/EIEC PCR Not Detected St Y.enterocolitica PCR Not Detected Stool Vibrio (PCR) Not Detected Stl Vibrio cholerae PCR Not Detected Stl Norovirus GI/GII PCR Not Detected C. difficile Tox B Gene POSITIVE A* C. difficile Toxin A&B Negative C. difficile Interpret SEE NOTE Blood Type O Positive Antibody Screen POSITIVE Antibody Identification Inconclusive Crossmatch See Detail Crossmatch ([facility]) See Detail Blood Bank Comment Specimen Reference Report See note 10/10/24 10/10/24 10/10/24 06:43 07:00 08:45 MCV 87.5 MCH 29.6 MCHC 33.8 RDW 15.9 Plt Count 86 L MPV 10.5 Absolute Nucleated RBC 0.000 Nucleated RBC % (auto) 0.0 Neutrophils % (Manual) 78 H Band Neutrophils % 10 H Lymphocytes % (Manual) 10 L Monocytes % (Manual) 2 Abs Neuts (Manual) 0.6 L Lymphocytes # (Manual) 0.1 L Platelet Estimate SLIGHTLY DECREASED Large Platelets PRESENT Plt Morphology Comment NOTED RBC Morphology NORMAL Ovalocytes 2+ (15-30) Hold Purple Top SEE NOTE Estim Creat Clear Calc 67.4 Estimated GFR > 60 Stl C. cayetanensis PCR Stool Rotavirus A PCR Stl Adenov F 40/41 PCR Stool Astrovirus (PCR) Stool Campylobacter PCR Stool Cryptosporidium PCR Stl Sh Tox Pr E STEC PCR Stool E coli O157 PCR Stl Enterotoxigenic E PCR Stool EPEC (PCR) Stool EAEC (PCR) Stl E. histolytica PCR Stool Giardia Lamblia PCR Stl P. shigelloides PCR Stool Salmonella PCR Stool Sapovirus (PCR) Stl Shigella/EIEC PCR St Y.enterocolitica PCR Stool Vibrio (PCR) Stl Vibrio cholerae PCR Stl Norovirus GI/GII PCR C. difficile Tox B Gene C. difficile Toxin A&B C. difficile Interpret Blood Type Antibody Screen Antibody Identification Crossmatch Crossmatch ([facility]) Blood Bank Comment Reference Report Microbiology Microbiology Results: Microbiology 10/09/24 00:46 Blood Culture - Preliminary Blood - Venous No growth after 24 hours. 10/09/24 00:46 Blood Culture - Preliminary Blood - Venous No growth after 24 hours. Assessment and Plan (1) Fever and neutropenia: Status: Acute (2) Multiple myeloma: Status: Acute Plan Patient is a 64-year-old female with past medical history of multiple myeloma diagnosed July 2024 on oral and injectable chemo only, melanoma 1987 with excision no chemo, external hemorrhoids, recent sepsis and pneumonia being admitted for neutropenic fever requiring expert consultation with Oncology and Infectious Disease. 1.Neutropenic fever/ multiple myeloma on oral and injectable chemotherapy -neutropenic precautions -C diff positive. . . We will DC cefepime and vanco -vancomycin 125 mg p.o. q.i.d. for 10 days -Neupogen equivalent 300 mg sc daily x2 doses -follow CBC 2.Hypomagnesemia -magnesium 1.3 on admission, 2 g ordered -check magnesium daily 3.Anemia -hemoglobin 7.6 today -hold transfusion at this time -follow CBC in a.m. lovenox sc omeperazole Full code Admit as inpatient for IV abx. Quality Stroke Does the patient have a stroke diagnosis?: No Reason for No Anti-thrombotic by Day Two: N/A - Med Ordered VTE Prior VTE?: No VTE Risk Level:: Medical - moderate - high VTE Device Contraindication: N/A - Device Ordered VTE Drug Contraindication: N/A - Med Ordered
[2024-10-10] MEDS: vancomycin HCL 125 MG CAPSULE PO ×2 (14:28→20:10)
[2024-10-10 15:32] VITALS: BP 140/76; PULSE 65; RESP 18; TEMP 36.7; O2SAT 96
[2024-10-10] MEDS: Tbo-Filgrastim 300 MCG/0.5 ML SYRINGE SUBCUT (17:41)
[2024-10-10 19:43] VITALS: BP 145/78; PULSE 63; RESP 16; TEMP 36.6; O2SAT 94
[2024-10-10 21:51] LABS: Vancomycin Trough 14.1 mcg/mL (10.0-20.0)
[2024-10-11] VITALS: BP 139/60; PULSE 56; RESP 16; TEMP 36.4; O2SAT 92
[2024-10-11] MEDS: vancomycin HCL 125 MG CAPSULE PO ×2 (03:18→07:41)
[2024-10-11 03:36] VITALS: BP 168/83; PULSE 60; RESP 16; TEMP 36.2; O2SAT 96
[2024-10-11 07:41] VITALS: BP 168/83
[2024-10-11] MEDS: amLODIPine Besylate 5 MG TABLET PO (07:41)
[2024-10-11] MEDS: Enoxaparin Sodium 40 MG/0.4 ML SYRINGE SUBCUT (07:42)
[2024-10-11] MEDS: Aspirin Enteric Coated 81 MG TABLET.DR PO (07:42)
[2024-10-11] MEDS: Multivitamin TABLET 1 TAB PO (07:42)
[2024-10-11] MEDS: Thiamine HCL 100 MG TABLET PO (07:42)
[2024-10-11] MEDS: Folic Acid 1 MG TABLET PO (07:42)
[2024-10-11] MEDS: Atorvastatin Calcium 20 MG TABLET PO (07:42)
[2024-10-11] MEDS: Potassium Chloride ER 10 MEQ TABLET.ER PO (07:42)
[2024-10-11] MEDS: 0.9 % Sodium Chloride Flush 3 ML SYRINGE IVFLUSH (07:42)
[2024-10-11] MEDS: Acetaminophen 325 MG TABLET 650 MG PO (07:51)
[2024-10-11 08:00] VITALS: BP 142/75; PULSE 60; RESP 18; TEMP 36.6; O2SAT 96
[2024-10-11 08:48] LABS: Baso%MD 0.4 %; Eos%MD 0.2 %; Hematocrit 25.9 % (37.0-47.0); Hemoglobin 8.7 g/dl (12.0-16.0); IG%MD 7.5 %; Lymph%MD 10.5 %; Mean Corpuscular HGB Conc 33.6 g/dl (31.0-35.0); Mean Corpuscular Hemoglobin 29.5 pg (27.0-33.0); Mean Corpuscular Volume 87.8 fL (80.0-98.0); Mono%MD 2.4 %; Red Blood Count 2.95 X10*6/uL (4.20-5.50); Red Cell Distribution Width 15.8 % (11.0-16.0); White Blood Count 4.7 X10*3/uL (4.8-10.8)
[2024-10-11 08:52] LABS: Platelet Count 94 X10*3/uL (160-400)
[2024-10-11 09:13] LABS: Band Neutrophils Percent 23 % (3-5); Eosinophils Percent Manual 1 % (0-4); Lymphocytes Absolute Manual 0.4 X10*3/uL (1.2-4.9); Lymphocytes Percent Manual 8 % (20-40); Monocytes Percent Manual 1 % (2-11); Neutrophils Absolute Manual 4.2 X10*3/uL (2.0-8.3); Neutrophils Percent Manual 67 % (45-73)
[2024-10-11 09:14] LABS: RBC Morphology NOTED
[2024-10-11 09:15] LABS: Ovalocytes 1+ (5-14) /OIF; Schistocytes 1+ (0-2) /OIF
[2024-10-11 09:16] LABS: Burr Cells 1+ (0-2) /OIF; Dohle Bodies PRESENT; Hypochromasia 1+ (5-14) /OIF
[2024-10-11 09:17] LABS: Large Platelet PRESENT; Platelet Estimate DECREASED (NORMAL); Platelet Morphology Comment NOTED
--- NOTE | 2024-10-11 10:47 | PM.DS ---
DS: Providers Provider Date of Service: 10/11/24 Date of admission: 10/09/24 01:14 Date of discharge: 10/11/24 Primary care physician: Reyes Emanuel III, MD Consults: 10/09/24 01:19 Consult to Hematology / Oncology [place]ine [place] [facility] [place] Reason for consultation: neutropenic fever on chemo Has provider been notified: No 10/09/24 01:21 Consult to Infectious Diseases Routine Consulting [place] [facility] [place] Reason for consultation: neutropenic fever Has provider been notified: No DS: Diagnosis Discharge Diagnosis (1) Fever and neutropenia: Status: Acute (2) Multiple myeloma: Status: Acute DS: Summary Hospital Course Hospital Course: admission hpi fever, chills Patient is a 64-year-old female with past medical history of multiple myeloma diagnosed July 2024 on oral and injectable chemo only, melanoma 1987 with excision no chemo, external hemorrhoids, recent sepsis and pneumonia attending chemotherapy at [facility] and return home. Patient stated she has a salad for dinner and was wondering if this could have made her ill. Patient did have 1 episode of diarrhea this past evening. Patient has had intermittent bouts of diarrhea which which are irritating her external hemorrhoids. Patient went to bed earlier than usual and by 23:00 was feeling febrile and having extensive chills with no alteration of mental status. Patient lives alone and decided to call 911 and was brought to [facility] as this was the closest tertiary center to her home. Patient is currently receiving all her care for cancer at [facility]. Patient currently denies any chest pain, nausea or vomiting. Patient denies any headache or visual changes. On exam no nuchal rigidity noted. Patient denies history of blood clots in the longer legs. Patient has no central line including MediPort. Patient currently has no open wounds. Chest x-ray suspicious for pneumonitis and pulmonary edema with lytic changes indicating possible metastases. Patient is not experiencing any hypoxia and is 92-94% on room air. Patient is not currently tachycardic. White count 0.8. Absolute neutrophils 0.6. Bandemia of 17. Lactic acid on admission 1.8. CRP 1.23. Procalcitonin 0.16. Magnesium low at 1.3. Urinalysis pending. Viral studies pending. C diff and stool culture pending. Patient is started on vanco and Zosyn in the emergency department. Neutropenic precautions are being followed so antibiotics will continue with cefepime and vanco. MOLST was completed at the bedside. Patient clearly states that she is a full code and would want everything done if needed. Patient's brother is her caregiver and patient asked that we not call until the morning as she did not want to awaken him to let him know she was in the hospital. Patient being admitted for neutropenic fever and infectious disease workup. ID consulted as well as Oncology. Patient currently on neutropenic precautions following neutropenic protocol. Patient meets the criteria for sepsi hospital course: Patient with MM on chemo and presented with fever, chills and diarrhea, she was found to be neutropenic and had cdif, blood cultures have been negative, she has been treated with vancomycin orally for cdif. Neutropenia treated epogen and presently WBC 4.7 and ANC is 4.2. She has no further diarrhea and will complete 10 days of oral vanco Time Attestation Discharge Coordination Time (in mins): 40 Quality: Safe Use of Opioids Does Pt have an Active Cancer Diagnosis on the Problem List?: No Quality: Stroke Does the patient have a stroke diagnosis?: No Physical Exam Vital Signs: Vital Signs: Last Vital Signs Temp 97.8 F 10/11/24 08:00 Pulse 60 10/11/24 08:00 Resp 18 10/11/24 08:00 BP 142/75 H 10/11/24 08:00 Pulse Ox 96 10/11/24 08:00 O2 Del Method Room Air 10/11/24 08:00 O2 Flow Rate 2 10/09/24 07:07 BMI result Body Mass Index 21.6 DS: Data Data Completed and Pending Labs on day of discharge: Laboratory Results - last 24 hr 10/10/24 10/11/24 21:03 07:26 WBC 4.7 L RBC 2.95 L Hgb 8.7 L Hct 25.9 L MCV 87.8 MCH 29.5 MCHC 33.6 RDW 15.8 Plt Count 94 L MPV 12.0 Absolute Nucleated RBC 0.000 Nucleated RBC % (auto) 0.0 Neutrophils % (Manual) 67 Band Neutrophils % 23 H Lymphocytes % (Manual) 8 L Monocytes % (Manual) 1 L Eosinophils % (Manual) 1 Abs Neuts (Manual) 4.2 Lymphocytes # (Manual) 0.4 L Dohle Bodies PRESENT Platelet Estimate DECREASED Large Platelets PRESENT Plt Morphology Comment NOTED RBC Morphology NOTED Hypochromasia 1+ (5-14) Ovalocytes 1+ (5-14) Picacho Cells 1+ (0-2) Schistocytes 1+ (0-2) Vancomycin Trough 14.1 Preliminary micro results at discharge 10/09/24 00:46 Blood Culture - Preliminary Blood - Venous No growth after 48 hours. 10/09/24 00:46 Blood Culture - Preliminary Blood - Venous No growth after 48 hours. Discharge Plan Discharge Anticipated Discharge Date/Time: 10/11/24 10:43 Patient Disposition: Home, Self-Care Discharge Diagnosis: Neutropenia, Cdif Referrals: Reyes Emanuel III, MD [Primary Care Provider] - 1 Week Discharge Medications: New vancomycin 125 mg Capsule 125 mg PO Q6H Qty: 36 0RF Continued multivitamin [One Daily Multivitamin] Tablet 1 tab PO DAILY atorvastatin 20 mg tablet 20 mg PO DAILY citalopram 10 mg tablet 20 mg PO DAILY thiamine HCl (vitamin B1) 100 mg tablet 100 mg PO DAILY potassium chloride 10 mEq tablet extended release 10 meq PO DAILY amlodipine 5 mg tablet 5 mg PO DAILY tramadol 50 mg tablet 50 mg PO TID PRN (Reason: moderate pain) lorazepam 0.5 mg tablet 0.5 mg PO BID PRN (Reason: Anxiety) dexamethasone 4 mg tablet 40 mg PO MO folic acid 1 mg tablet 1 mg PO DAILY lenalidomide [Revlimid] 25 mg capsule 25 mg PO BEDTIME aspirin 81 mg tablet,delayed release (DR/EC) 81 mg PO DAILY Discontinued cephalexin 500 mg capsule 500 mg PO BID Discharge Orders: Discharge Order (Routine); Ordered 10/11/24 Ordered By: Danny Beltran Diet: Advance to usual diet Activity on Discharge: As tolerated Stand Alone Forms: Patient Portal Discharge page Print Language: [place] Care Plan Goals: recovert from neutropenia and cdif Health Concerns: cdif Plan of Treatment: take vancomycin as directed and follow up with your PCP in a week follow up with your oncologist in a wek Assessment: see above Discharge Date/Time: 10/11/24 12:00
--- NOTE | 2024-10-11 10:51 | MHC.CM.PN ---
Patient has been medically cleared for dc to home today, self care.
== END 2024-10-11 12:00 | disposition home or self-care (01) | DRG 372 ==
LOC: HO.ED 01:00 → HO.EDOVER 01:21 → HO.IMC 16:25
PROVIDERS: Hospitalist; Student in an Organized Health Care Education/Training Program; Admitting Provider Nurse Practitioner Family; Emergency Provider Emergency Medicine; PCP Internal Medicine; Visit Provider Internal Medicine
DX: A04.72 Enterocolitis due to Clostridium difficile, not specified as recurrent (principal); C90.00 Multiple myeloma not having achieved remission; D70.9 Neutropenia, unspecified; R50.81 Fever presenting with conditions classified elsewhere; K64.4 Residual hemorrhoidal skin tags; E83.42 Hypomagnesemia; D64.81 Anemia due to antineoplastic chemotherapy; T45.1X5A Adverse effect of antineoplastic and immunosuppressive drugs, initial encounter; Z79.899 Other long term (current) drug therapy
CPT/HCPCS: 0241U; 36415; 71045; 80053; 80202; 81003; 82565; 83605; 83735; 83880; 84145; 84443; 85007; 85025; 85027; 86140; 86141; 86850; 86870; 86900; 86901; 86920; 86922; 87040; 87324; 87493; 87507; 93005; 99285; J0131; J0692; J1447; J1650; J2405; J2543; J3371; J3475; J7120

== ENCOUNTER → 2024-10-09 00:19 | Outpatient (BNV) | payer OTHER, SELFPAY | PROVIDERS: Emergency Provider Emergency Medicine; PCP Internal Medicine; Visit Provider Radiology Neuroradiology | DX: M89.58 Osteolysis, other site (principal); R91.8 Other nonspecific abnormal finding of lung field | CPT/HCPCS: 71045 ==

== ENCOUNTER → 2024-10-09 00:55 | Outpatient (BNV) | payer OTHER, SELFPAY | PROVIDERS: Admitting Provider Nurse Practitioner Family; Emergency Provider Emergency Medicine; PCP Internal Medicine; Visit Provider Internal Medicine Cardiovascular Disease | DX: I45.10 Unspecified right bundle-branch block (principal) | CPT/HCPCS: 93010 ==

== ENCOUNTER → 2024-10-09 01:14 | Outpatient (BNV) | payer OTHER, SELFPAY | PROVIDERS: Admitting Provider Nurse Practitioner Family; Emergency Provider Emergency Medicine; PCP Internal Medicine; Visit Provider Internal Medicine | DX: C90.00 Multiple myeloma not having achieved remission (principal); D61.818 Other pancytopenia | CPT/HCPCS: 99222 ==

== ENCOUNTER → 2024-10-09 01:14 | Outpatient (BNV) | payer OTHER, SELFPAY | PROVIDERS: Admitting Provider Nurse Practitioner Family; Emergency Provider Emergency Medicine; PCP Internal Medicine; Visit Provider Internal Medicine | DX: D70.9 Neutropenia, unspecified (principal) | CPT/HCPCS: 99232; 99499 ==

== ENCOUNTER → 2024-10-09 01:14 | Outpatient (BNV) | payer OTHER, SELFPAY | PROVIDERS: Admitting Provider Nurse Practitioner Family; Emergency Provider Emergency Medicine; PCP Internal Medicine; Visit Provider Nurse Practitioner Family | DX: D70.9 Neutropenia, unspecified (principal); R50.81 Fever presenting with conditions classified elsewhere | CPT/HCPCS: 99223; 99232; 99239; 99499 ==